=== PATIENT | female | born 2000 | race Caucasian/White ===

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

== ENCOUNTER 2020-01-13 22:45 | Emergency (ER) | payer OTHER, SELFPAY ==
[2020-01-13 22:52] VITALS: BP 137/84; PULSE 118; RESP 18; TEMP 37.6; O2SAT 98; BMI 33.3
--- NOTE | 2020-01-13 22:59 | XRR_ITS ---
PROCEDURE INFORMATION: Exam: XR Right Hand Exam date and time: 01/13/2020 11:16 PM Age: 19 years old Clinical indication: Injury or trauma; Fall; Initial encounter; Blunt trauma (contusions or hematomas; Hand; Right TECHNIQUE: Imaging protocol: XR Right hand. Views: 3 or more views. COMPARISON: No relevant prior studies available. FINDINGS: Bones/joints: Normal. Soft tissues: Normal. XR/XR hand RT min 3V* [id number] IMPRESSION: No acute findings.
[2020-01-13 23:00] VITALS: PULSE 111
--- NOTE | 2020-01-13 23:15 | W.ED.EXTPRO ---
HPI - Extremity Problem General: Chief complaint: Extremity Injury, Upper Stated complaint: hand pain Time Seen by Provider: 01/13/20 22:55 History of Present Illness: HPI Narrative: Patient fell on her hand yesterday and sustained a bruise to below the #4 finger in the metacarpal region and she says it hurts more today Complaint: extremity pain Location: right and upper extremity (Hand) Quality: aching Radiation: none Relieving factors: immobilization Exacerbating factors: range of motion Associated symptoms: Reports no associated symptoms; Deny chest pain, fever(s) or rash Review of Systems Const: Denies: fever, chills or body aches Eyes: Denies: change in vision or blurry vision ENMT: Denies: throat pain or nasal congestion Card: Denies: chest pain or shortness of breath on exertion Resp: Denies: shortness of breath, productive cough or non-productive cough GI: Denies: abdominal pain, nausea or vomiting Musc: Reports: extremity pain (Right hand) Skin/Breast: Denies: rash Neuro: Denies: headache Psych: Denies: anxiety or depression Chris/Lymph: Denies: easy bruising PFSH ED PFSH: Social History Smoking and tobacco status: current every day smoker Female Reproductive History: Date of last menstrual period: 01/13/20 Physical Exam Const: COMMON NORMALS: no apparent distress, average body habitus and oriented x3 HENMT: COMMON NORMALS: normocephalic HEAD & SCALP: normal to inspection and normocephalic FACE & SINUS: normal facial exam Eye: COMMON NORMALS: conjunctivae normal GENERAL EYE: normal appearance of both eyes CONJUNCTIVA: Yes conjunctivae normal Neck/C-Spine: COMMON NORMALS: no JVD Chest: COMMONS NORMALS: inspection of chest normal Resp: COMMON NORMALS: normal respiratory effort and clear to auscultation bilaterally AUSCULTATION: clear to auscultation bilaterally Cardio: COMMON NORMALS: no JVD, regular rate and regular rhythm RATE: regular rate RHYTHM: regular rhythm GI: COMMON NORMALS: normal to inspection, nondistended, normoactive bowel sounds Extremity: COMMON NORMALS: normal to inspection and full ROM RIGHT UPPER EXTREMITY: Yes hand & digits (Bruising to the fourth metacarpal and has good range of motion is tender to the distal aspect of it.) Neuro: COMMON NORMALS: oriented x3 Course Vital Signs: Vital signs: Vital Signs Temperature 99.6 F 01/13/20 22:52 Pulse Rate 111 H 01/13/20 23:00 Respiratory Rate 18 01/13/20 22:52 Blood Pressure 137/84 01/13/20 22:52 Pulse Oximetry 98 01/13/20 22:52 Discharge Plan Discharge Prescriptions: No Action No Known Home Medications RF: 0 Coding Level of Care Code ED Clinical Support Nurse for Clement Anthony
[2020-01-13 23:40] VITALS: BP 117/77; PULSE 95; RESP 18; O2SAT 96
== END 2020-01-13 23:43 | disposition home or self-care (01) ==
PROVIDERS: Emergency Provider Nurse Practitioner Family; Family Provider Family Medicine; PCP Registered Nurse
DX: S60.221A Contusion of right hand, initial encounter (principal); F17.200 Nicotine dependence, unspecified, uncomplicated; W19.XXXA Unspecified fall, initial encounter
CPT/HCPCS: 12345; 73130; 99281; 99282

== ENCOUNTER 2020-07-12 09:10 | Emergency (ER) | payer BC, SELFPAY ==
[2020-07-12 09:13] VITALS: BP 136/83; PULSE 107; RESP 16; TEMP 36.6; O2SAT 99; BMI 33.7
--- NOTE | 2020-07-12 09:29 | W.ED.ANIMALB ---
HPI - Animal Bite General: Chief Complaint: Animal Bite Stated Complaint: insect bite/dizzy Time Seen by Provider: 07/12/20 09:12 History of Present Illness: HPI narrative: Patient is a 19-year-old female comes to the ED with lesion on right inner thigh. Patient first noticed lesion on right inner thigh Wednesday. Patient is unsure if she had a bug bite or what caused lesion. Patient says redness and tenderness has increased over the past couple days. Patient also says that her last period was May 12. She has a regular monthly cycle. She states that she could possibly be , but has taken a couple at home tests in the last couple weeks and they were both negative. Associated symptoms: Deny chills, fever(s) or headache(s) Review of Systems Const: Denies: fever(s), chills or fatigue Eyes: Denies: change in vision or eye discomfort ENMT: Denies: throat pain, odynophagia, nasal discharge or nasal congestion Card: Denies: chest pain, palpitations, edema, swelling of feet/ankles, dyspnea on exertion or orthopnea Resp: Denies: dyspnea, productive cough or non-productive cough GI: Denies: abdominal pain, nausea, vomiting, diarrhea, constipation or hematochezia : Reports: amenorrhea (Last period Was May 12); Denies: flank pain, dysuria or hematuria Musc: Denies: neck pain, back pain or extremity swelling Skin/Breast: Reports: new lesions; Denies: rash Neuro: Reports: dizziness (intermittent mild dizziness for the past 2 days.); Denies: headache(s), numbness in extremities or weakness in extremities [facility] ED PFSH: Social History Smoking and tobacco status: former smoker Alcohol intake: never Substance/Drug Use: never Female Reproductive History: Date of last menstrual period: 05/12/20 Physical Exam Const: COMMON NORMALS: no acute distress, patient oriented x3, healthy appearing and alert GENERAL APPEARANCE: cooperative and comfortable HENMT: COMMON NORMALS: normocephalic HEAD & SCALP: normocephalic MOUTH: Normal oral and palatal mucosa present THROAT: posterior oropharynx normal and uvula midline Eye: COMMON NORMALS: Equal, round and reactive pupils present PUPIL: Yes Equal, round and reactive pupils present Neck/C-Spine: COMMON NORMALS: supple GENERAL: Yes normal visual inspection Resp: COMMON NORMALS: normal respiratory effort, No retractions, No use of accessory muscles and clear to auscultation bilaterally AUSCULTATION: clear to auscultation bilaterally Cardio: COMMON NORMALS: regular rate, regular rhythm, S1 normal heart sound present, S2 normal heart sound present, No gallops present (Cardio), No clicks present (Cardio), No murmurs present (Cardio) and Peripheral pulses 2+ throughout RATE: regular rate RHYTHM: regular rhythm HEART SOUNDS: S1 normal heart sound present and S2 normal heart sound present PERIPHERAL PULSES: Peripheral pulses 2+ throughout GI: COMMON NORMALS: Normal to inspection, nondistended, normoactive bowel sounds present, Soft to palpation, non-tender and no masses PALPATION: Yes Soft to palpation : COMMON NORMALS: Yes no CVA tenderness BLADDER/KIDNEY EXAM: Yes no CVA tenderness Back/Pelvis: COMMON NORMALS: no CVA tenderness Extremity: NARRATIVE EXTREMITY EXAM: Patient has lesion on upper medial aspect of right thigh with erythema, warmth tenderness. No visible drainage and lesion is nonfluctuant and indurated. Exam findings suggestive of cellulitis. GENERAL: Yes normal exam except as noted Neuro: COMMON NORMALS: patient oriented x3 and moves all extremities SENSORIUM/ORIENTATION: Yes alert Skin: NARRATIVE SKIN EXAM: Patient has lesion on upper medial aspect of right thigh with erythema, warmth tenderness. No visible drainage and lesion is nonfluctuant and indurated. Exam findings suggestive of cellulitis. GENERAL SKIN EXAM: dry skin Course Vital Signs: Vital signs: Vital Signs Temperature 97.9 F 07/12/20 09:13 Pulse Rate 85 07/12/20 11:06 Respiratory Rate 16 07/12/20 11:06 Blood Pressure 109/71 07/12/20 11:06 Pulse Oximetry 100 07/12/20 11:06 MDM - Animal Bite MDM Narrative: Medical decision making narrative: Patient is a 19-year-old female comes to the ED with lesion on right thigh. Patient also says her last period was May 12 and she is taken multiple at home tests that were negative in the past couple weeks. Physical exam shows a healthy 19-year-old female in no acute distress or pain. Lesion on right thigh shows erythema, warmth and tenderness to palpation. No visible ulcer or puncture wounds seen. No visible drainage. Exam findings suggestive of cellulitis. White blood cell count 6.1 and rest of CBC was unremarkable. hCG was negative. Patient was discharged and put on a prescription of cephalexin. She was told to return to ED for reevaluation and possible abscess drainage if cellulitis on the right thigh does not improve after being on antibiotics for a few days. Follow-up with PCP in 7 to 10 days for reevaluation. Patient understood and agreed with plan. Lab Data: Attestation: I reviewed the patient's lab results. Labs: Lab Results 07/12/20 07/12/20 Range/Units 10:42 10:42 WBC 6.1 (4.5-13.0) 10^3/ uL RBC 4.06 L (4.1-5.3) 10^6/u L Hgb 12.6 (11.5-15.3) g/dL Hct 37.4 (37.0-47.0) % MCV 92.1 (81-99) fL MCH 31.0 (28.0-34.0) pg MCHC 33.7 (30.0-36.0) g/dL RDW 11.9 L (12.1-15.1) % Plt Count 235 (130-400) 10^3/c mm MPV 9.5 (7.4-10.4) fL Neut % (Auto) 62.0 % Lymph % (Auto) 27.0 % [place] % (Auto) 8.8 % Eos % (Auto) 1.5 % Baso % (Auto) 0.5 % Neut # (Auto) 3.80 (1.8-8.0) 10^3/u L Lymph # (Auto) 1.7 (1.5-6.5) 10^3/u L [place] # (Auto) 0.5 (0.2-0.9) 10^3/u L Eos # (Auto) 0.1 (0.0-0.8) 10^3/u L Baso # (Auto) 0.0 (0.0-0.1) 10^3/u L Nucleated RBC % (a uto) 0 % Nucleated RBCs # 0.0 /100WBC HCG, Qual Negative (Negative) Discharge Plan Discharge Patient Disposition: Home Clinical Impression: Cellulitis Qualifiers: Site of cellulitis: extremity Site of cellulitis of extremity: lower extremity Laterality: right Qualified Code(s): L03.115 - Cellulitis of right lower limb Condition: Stable Prescriptions: New cephalexin 500 mg capsule 500 mg PO TID 7 Days Qty: 21 RF: 0 No Action No Known Home Medications RF: 0 Discharge Orders: Discharge Order (Routine); Ordered 07/12/20 Ordered By: Raghu Mejia Referrals: Brigitte Forrest FNP [Primary Care Provider] - Discharge Diet: Regular Discharge Activity: Resume usual activity Patient Instructions: Cellulitis (ED) Activity Restrictions/Additional Instructions: Follow-up with PCP in 7 to 10 days. Take medications as prescribed. Return to the ER or your medical provider if condition worsens after 2-3 days on antibiotics. Please read and understand discharge instructions. If any questions, please ask. Discharge Date/Time: 07/12/20 11:13 Coding Level of Care Code ED Mud Mixer Helper for Clement Anthony Exam Comprehensive
[2020-07-12 10:48] LABS: Basophils % 0.5 %; Eosinophils # 0.1 10^3/uL (0.0-0.8); Eosinophils % 1.5 %; Hematocrit 37.4 % (37.0-47.0); Hemoglobin 12.6 g/dL (11.5-15.3); Lymphocytes # 1.7 10^3/uL (1.5-6.5); Mean Corpuscular HGB Conc 33.7 g/dL (30.0-36.0); Mean Corpuscular Volume 92.1 fL (81-99); Mean Platelet Volume 9.5 fL (7.4-10.4); Monocytes # 0.5 10^3/uL (0.2-0.9); Monocytes % 8.8 %; Nucleated Red Blood Cells % 0 %; Platelet Count 235 10^3/cmm (130-400); Red Blood Count 4.06 10^6/uL (4.1-5.3); Red Cell Distribution Width 11.9 % (12.1-15.1); White Blood Count 6.1 10^3/uL (4.5-13.0)
[2020-07-12 11:05] LABS: HCG, Serum Qual Negative (Negative)
[2020-07-12 11:06] VITALS: BP 109/71; PULSE 85; RESP 16; O2SAT 100
== END 2020-07-12 11:13 | disposition home or self-care (01) ==
PROVIDERS: Emergency Provider Physician Assistant; PCP Registered Nurse
DX: L03.115 Cellulitis of right lower limb (principal); Z87.891 Personal history of nicotine dependence
CPT/HCPCS: 12345; 84703; 85025; 99281; 99282

== ENCOUNTER 2020-08-23 12:23 | Emergency (ER) | payer BC, SELFPAY ==
--- NOTE | 2020-08-23 12:28 | XRR_ITS ---
PROCEDURE INFORMATION: Exam: XR Chest, 1 View Exam date and time: 08/23/2020 12:44 PM Age: 19 years old Clinical indication: Cough; Additional info: Cough, congestion TECHNIQUE: Imaging protocol: XR of the chest Views: 1 view. COMPARISON: No relevant prior studies available. FINDINGS: Lungs: Unremarkable. No consolidation. Pleural space: Unremarkable. No pleural effusion. No pneumothorax. Heart/Mediastinum: Unremarkable. No cardiomegaly. Bones/joints: Unremarkable. XR/XR chest 1V portable [id number] IMPRESSION: No acute findings.
[2020-08-23 12:42] VITALS: BP 114/69; PULSE 101; RESP 18; TEMP 36.8; O2SAT 98; BMI 33.5
--- NOTE | 2020-08-23 13:25 | ED_ITS ---
HPI - COVID General: Chief Complaint: COVID symptoms Stated Complaint: cough/congestion Time Seen by Provider: 08/23/20 13:25 Triage information: Has fever, cough or shortness of breath . Exposure to COVID + person last 14 days History of Present Illness: HPI Narrative: Patient is a 19-year-old female comes to the ED with upper respiratory symptoms. She says she has had a sore throat, dry cough, nasal congestion and drainage for over 4 days. 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 She also says she has some itching in her ear. She says she feels short of breath sometimes as well. Denies any fever, nausea/vomiting. COVID 19 common symptoms: positive non-productive cough, dyspnea, throat pain and nasal congestion; negative fever(s), chills, productive cough, fatigue, headache(s), nausea, vomiting or diarrhea COVID 19 other sytmptoms: negative chest pain COVID Results: SARS-CoV-2 RNA (RT-PCR) Pending 08/23/20 13:30 08/23/20 Review of Systems Const: Denies: fever(s), chills or fatigue Eyes: Denies: change in vision or eye discomfort ENMT: Reports: throat pain, nasal discharge and nasal congestion; Denies: odynophagia Card: Denies: chest pain, palpitations, edema, swelling of feet/ankles, dyspnea on exertion or orthopnea Resp: Reports: dyspnea and non-productive cough; Denies: productive cough GI: Denies: abdominal pain, nausea, vomiting, diarrhea, constipation or hematochezia : Denies: flank pain, dysuria or hematuria Musc: Denies: neck pain, back pain or extremity swelling Skin/Breast: Denies: rash or new lesions Neuro: Denies: headache(s), numbness in extremities or weakness in extremities PFS ED PFSH: Social History Smoking and tobacco status: former smoker Alcohol intake: never Female Reproductive History: Date of last menstrual period: 08/23/20 Physical Exam Const: COMMON NORMALS: no acute distress, patient oriented x3, healthy appearing and alert GENERAL APPEARANCE: cooperative and comfortable HENMT: COMMON NORMALS: normocephalic HEAD & SCALP: normocephalic MOUTH: Normal oral and palatal mucosa present THROAT: posterior oropharynx normal and uvula midline Neck/C-Spine: COMMON NORMALS: supple GENERAL: Yes normal visual inspection Resp: COMMON NORMALS: normal respiratory effort, No retractions, No use of accessory muscles and clear to auscultation bilaterally EFFORT & INSPECTION: Yes able to speak in complete sentences, No tachypneic, No respiratory distress and No Actively coughing AUSCULTATION: clear to auscultation bilaterally Cardio: COMMON NORMALS: regular rate, regular rhythm, S1 normal heart sound present, S2 normal heart sound present, No gallops present (Cardio), No clicks present (Cardio), No murmurs present (Cardio) and Peripheral pulses 2+ throughout RATE: regular rate RHYTHM: regular rhythm HEART SOUNDS: S1 normal heart sound present and S2 normal heart sound present PERIPHERAL PULSES: Peripheral pulses 2+ throughout GI: COMMON NORMALS: Normal to inspection, nondistended, normoactive bowel sounds present, Soft to palpation, non-tender and no masses PALPATION: Yes Soft to palpation : COMMON NORMALS: Yes no CVA tenderness BLADDER/KIDNEY EXAM: Yes no CVA tenderness Back/Pelvis: COMMON NORMALS: no CVA tenderness Extremity: COMMON NORMALS: normal to inspection Neuro: COMMON NORMALS: patient oriented x3 and moves all extremities SENSORIUM/ORIENTATION: Yes alert Skin: GENERAL SKIN EXAM: dry skin Course ED course: Patient is a 19-year-old female comes to the ED with upper respiratory symptoms. 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 Exam shows a healthy female in no acute distress. Lungs were clear to auscultation with no wheezing or crackles heard. Chest x-ray showed no acute findings. Patient was tested for COVID-19 and results are pending. She was discharged and given a prescription for albuterol inhaler to get filled if needed for any shortness of breath or wheezing. Patient was informed on self quarantine until COVID-19 results. Return to ED precautions given. Patient understood and agreed with plan. Vital Signs: Vital signs: Vital Signs Temperature 98.3 F 08/23/20 12:42 Pulse Rate 101 H 08/23/20 12:42 Respiratory Rate 18 08/23/20 12:42 Blood Pressure 114/69 08/23/20 12:42 Pulse Oximetry 97 08/23/20 13:41 MDM - COVID Lab Data COVID Results: SARS-CoV-2 RNA (RT-PCR) Pending 08/23/20 13:30 08/23/20 Imaging Data CXR: Attestation: I personally reviewed and interpreted this imaging study as follows: Radiologist's impression: [address] [place] [address] XRay Report Signed Patient: Mary Lee Unit #: [id number] : 2000 Age/Sex: 19 / F ADM Date: 08/23/20 Loc: ER Room/Bed: Attending Dr: Ordering Provider/Ordering MD: Lian Sosa DO Date of Service: 08/23/20 Procedure(s): XR chest 1V portable [id number] Accession Number(s): [id number] Report Number: [id number] PROCEDURE INFORMATION: Exam: XR Chest, 1 View Exam date and time: 08/23/2020 12:44 PM Age: 19 years old Clinical indication: Cough; Additional info: Cough, congestion TECHNIQUE: Imaging protocol: XR of the chest Views: 1 view. COMPARISON: No relevant prior studies available. FINDINGS: Lungs: Unremarkable. No consolidation. Pleural space: Unremarkable. No pleural effusion. No pneumothorax. Heart/Mediastinum: Unremarkable. No cardiomegaly. Bones/joints: Unremarkable. XR/XR chest 1V portable [id number] IMPRESSION: No acute findings. Dictated By: Honorio Mackey Signed By: Honorio Mackey Signed Date/Time: 08/23/201313 DD/ 1312 Discharge Plan Discharge Patient Disposition: Home Clinical Impression: Upper respiratory infection Qualifiers: URI type: unspecified URI Qualified Code(s): J06.9 - Acute upper respiratory infection, unspecified Condition: Stable Prescriptions: New albuterol sulfate 90 mcg/actuation aerosol powdr breath activated 2 inh INHALATION Q6H PRN (Reason: shortness of breath or wheezing) Qty: 1 RF: 0 No Action No Known Home Medications RF: 0 Discharge Orders: Discharge Order (Routine); Ordered 08/23/20 Ordered By: Raghu Mejia Referrals: Brigitte Forrest FNP [Primary Care Provider] - Discharge Diet: Regular Discharge Activity: Limit activity as instructed Patient Instructions: Upper Respiratory Infection - Adult Activity Restrictions/Additional Instructions: Follow-up with medical provider as directed in 7-10 days. COVID testing was performed and sent to lab and results will be back in 2 to 3 days. Self quarantine for the next 3 days or up to 12 days pending on COVID testing results. Contact [facility] in 2 to 3 days to get results or [facility] will contact you with results. Take ibuprofen or Tylenol for fevers. Drink plenty of fluids and stay hydrated. Symptom management with [id number] cough and nasal decongestant meds. Return to the ER or your medical provider if condition worsens. Please read and understand discharge instructions. If any questions, please ask. Discharge Date/Time: 08/23/20 13:42 Coding Level of Care Code ED Senior Mechanical Technician for Clement Anthony Exam Comprehensive
[2020-08-23 13:41] VITALS: O2SAT 97
[2020-08-24 18:53] LABS: Quest SARS-CoV-2 RNA NOT DETECTED (NOT DETECTED)
--- NOTE | 2020-08-25 08:20 | PC.NURSE ---
Pt called and notified of negative COVID result.
== END 2020-08-23 13:42 | disposition home or self-care (01) ==
PROVIDERS: Emergency Provider Physician Assistant; PCP Registered Nurse
DX: J06.9 Acute upper respiratory infection, unspecified (principal); Z87.891 Personal history of nicotine dependence
CPT/HCPCS: 12345; 71045; 87635; 99281; 99283

== ENCOUNTER 2020-10-28 23:05 | Emergency (ER) | payer BC, SELFPAY ==
[2020-10-28 23:14] VITALS: BP 130/85; PULSE 97; RESP 16; TEMP 36.9; O2SAT 98; BMI 33.3
[2020-10-29 02:16] VITALS: BP 128/89; PULSE 94; RESP 16; O2SAT 99
--- NOTE | 2020-10-29 02:29 | W.ED.DIZZY ---
HPI - Dizziness General: Chief Complaint: Dizziness Stated Complaint: ab pain, dizziness Time Seen by Provider: 10/29/20 02:01 History of Present Illness: HPI Narrative: Patient is a 19-year-old female comes to the ED with dizziness. Patient says she was working today and noticed that she had some episodes of dizziness and feeling off balance. Patient did say she could possibly be and her last menstrual. Was on September 16. She does have some increased urinary frequency with some mild left lower pelvis pain. Endorses having a white vaginal discharge. she has been drinking and eating normally and says she drink plenty of water today. Denies any excessive caffeine intake and says she only drinks 1 Mountain Dew a day. Endorses not getting much sleep for the past 3 nights before the dizziness started. Denies any chest pain, shortness of breath, fever, chills, nausea/vomiting, abdominal pain, bowel symptoms, dysuria or hematuria. Associated symptoms: Denies chest pain, chills, headache(s), nausea, nasal congestion, palpitations or vomiting Associated neuro symptoms: Deny numbness in extremities Review of Systems Const: Denies: fever(s), chills or fatigue Eyes: Denies: change in vision or eye discomfort ENMT: Denies: throat pain, odynophagia, nasal discharge or nasal congestion Card: Denies: chest pain, palpitations, edema, swelling of feet/ankles, dyspnea on exertion or orthopnea Resp: Denies: dyspnea, productive cough or non-productive cough GI: Denies: abdominal pain, nausea, vomiting, diarrhea, constipation or hematochezia : Reports: urinary frequency and pelvic pain (Mild left lower pelvic pain.); Denies: flank pain, dysuria or hematuria Musc: Denies: neck pain, back pain or extremity swelling Skin/Breast: Denies: rash or new lesions Neuro: Reports: dizziness; Denies: headache(s), numbness in extremities or weakness in extremities PFSH ED PFSH: Social History Smoking and tobacco status: former smoker Alcohol intake: never Female Reproductive History: Date of last menstrual period: 09/16/20 Physical Exam Const: COMMON NORMALS: no acute distress, patient oriented x3, healthy appearing and alert GENERAL APPEARANCE: cooperative and comfortable HENMT: COMMON NORMALS: normocephalic HEAD & SCALP: normocephalic MOUTH: Normal oral and palatal mucosa present THROAT: posterior oropharynx normal and uvula midline Eye: COMMON NORMALS: Equal, round and reactive pupils present PUPIL: Yes Equal, round and reactive pupils present Neck/C-Spine: COMMON NORMALS: supple GENERAL: Yes normal visual inspection Resp: COMMON NORMALS: normal respiratory effort, No retractions, No use of accessory muscles and clear to auscultation bilaterally AUSCULTATION: clear to auscultation bilaterally Cardio: COMMON NORMALS: regular rate, regular rhythm, S1 normal heart sound present, S2 normal heart sound present, No gallops present (Cardio), No clicks present (Cardio), No murmurs present (Cardio) and Peripheral pulses 2+ throughout RATE: regular rate RHYTHM: regular rhythm HEART SOUNDS: S1 normal heart sound present and S2 normal heart sound present PERIPHERAL PULSES: Peripheral pulses 2+ throughout GI: COMMON NORMALS: Normal to inspection, nondistended, normoactive bowel sounds present, Soft to palpation, non-tender and no masses PALPATION: Yes Soft to palpation : COMMON NORMALS: Yes no CVA tenderness BLADDER/KIDNEY EXAM: Yes no CVA tenderness Back/Pelvis: COMMON NORMALS: no CVA tenderness Extremity: COMMON NORMALS: normal to inspection Neuro: COMMON NORMALS: patient oriented x3 and moves all extremities SENSORIUM/ORIENTATION: Yes alert Skin: GENERAL SKIN EXAM: dry skin Course Vital Signs: Vital signs: Vital Signs Temperature 98.4 F 10/28/20 23:14 Pulse Rate 94 10/29/20 02:16 Respiratory Rate 16 10/29/20 02:16 Blood Pressure 128/89 10/29/20 02:16 Pulse Oximetry 99 10/29/20 02:16 MDM - Dizziness MDM Narrative: Medical decision making narrative: Patient is a 19-year-old female comes to the ED with dizziness, vaginal discharge, urine frequency and some left pelvic pain. Patient says she has not had much sleep for the past 3 nights. Exam is unremarkable and shows a healthy 19-year-old female in no acute distress or pain. CBC and CMP were unremarkable. EKG showed sinus tachycardia, 102 bpm, no ST segment elevation or depression seen. Trichomonas present and UA. hCG negative. Patient was discharged with a prescription for meclizine and Flagyl. Return to ED precautions given. Follow-up with PCP in 7 to 10 days. Patient understood and agreed with plan. Lab Data: Attestation: I reviewed the patient's lab results. Labs: Lab Results 10/29/20 10/29/20 10/29/20 Range/Units 02:12 02:12 02:12 WBC 8.0 (4.5-13.0) 10^3/ uL RBC 4.29 (4.1-5.3) 10^6/u L Hgb 13.4 (11.5-15.3) g/dL Hct 40.6 (37.0-47.0) % MCV 94.6 (81-99) fL MCH 31.2 (28.0-34.0) pg MCHC 33.0 (30.0-36.0) g/dL RDW 12.1 (12.1-15.1) % Plt Count 252 (130-400) 10^3/c mm MPV 9.7 (7.4-10.4) fL Neut % (Auto) 72.0 % Lymph % (Auto) 20.5 % [place] % (Auto) 6.1 % Eos % (Auto) 1.0 % Baso % (Auto) 0.2 % Neut # (Auto) 5.76 (1.8-8.0) 10^3/u L Lymph # (Auto) 1.6 (1.5-6.5) 10^3/u L [place] # (Auto) 0.5 (0.2-0.9) 10^3/u L Eos # (Auto) 0.1 (0.0-0.8) 10^3/u L Baso # (Auto) 0.0 (0.0-0.1) 10^3/u L Nucleated RBC % (a uto) 0 % Nucleated RBCs # 0.0 /100WBC Sodium 135 L (136-145) mmol/L Potassium 3.9 (3.5-5.1) mmol/L Chloride 103 (98-107) mmol/L Carbon Dioxide 25 (22-29) mmol/L Anion Gap 10.9 (5-19) BUN 11 (6-20) mg/dL Creatinine 0.5 (0.5-0.9) mg/dL GFR Calculation 158.9 H (90-130) mL/min Glucose 94 (65-115) mg/dL Calculated Osmolal ity 279 L (285-295) mOsm/k g Calcium 9.0 (8.5-10.5) mg/dL Total Bilirubin 0.2 (0.15-1.2) mg/dL AST 12 (0-32) U/L ALT 12 (0-33) U/L Alkaline Phosphata se 79 (35-105) IU/L Total Protein 7.1 (6.6-8.7) g/dL Albumin 4.3 (3.5-5.2) g/dL Globulin 2.8 (1.3-4.6) g/dL Lipase 44 (13-60) U/L HCG, Qual Negative (Negative) Urine Color (Yellow) Urine Appearance (CLEAR) Urine pH (5-7) Ur Specific Gravit y (1.005-1.030) Urine Protein (Negative) Urine Glucose (UA) (Normal) Urine Ketones (Negative) Urine Blood (Negative) Urine Nitrate (Negative) Urine Bilirubin (Negative) Urine Urobilinogen (Negative) mg/dL Ur Leukocyte Verna ase (Negative) Urine RBC (0-2) /hpf Urine WBC (0-5) /hpf Ur Squamous Epith Cells (0-5) /hpf Amorphous Sediment /hpf Urine Bacteria (NONE) /hpf Urine Mucus /hpf Urine Trichomonas /hpf 10/29/20 Range/Units 02:12 WBC (4.5-13.0) 10^3/ uL RBC (4.1-5.3) 10^6/u L Hgb (11.5-15.3) g/dL Hct (37.0-47.0) % MCV (81-99) fL MCH (28.0-34.0) pg MCHC (30.0-36.0) g/dL RDW (12.1-15.1) % Plt Count (130-400) 10^3/c mm MPV (7.4-10.4) fL Neut % (Auto) % Lymph % (Auto) % [place] % (Auto) % Eos % (Auto) % Baso % (Auto) % Neut # (Auto) (1.8-8.0) 10^3/u L Lymph # (Auto) (1.5-6.5) 10^3/u L [place] # (Auto) (0.2-0.9) 10^3/u L Eos # (Auto) (0.0-0.8) 10^3/u L Baso # (Auto) (0.0-0.1) 10^3/u L Nucleated RBC % (a uto) % Nucleated RBCs # /100WBC Sodium (136-145) mmol/L Potassium (3.5-5.1) mmol/L Chloride (98-107) mmol/L Carbon Dioxide (22-29) mmol/L Anion Gap (5-19) BUN (6-20) mg/dL Creatinine (0.5-0.9) mg/dL GFR Calculation (90-130) mL/min Glucose (65-115) mg/dL Calculated Osmolal ity (285-295) mOsm/k g Calcium (8.5-10.5) mg/dL Total Bilirubin (0.15-1.2) mg/dL AST (0-32) U/L ALT (0-33) U/L Alkaline Phosphata se (35-105) IU/L Total Protein (6.6-8.7) g/dL Albumin (3.5-5.2) g/dL Globulin (1.3-4.6) g/dL Lipase (13-60) U/L HCG, Qual (Negative) Urine Color Yellow (Yellow) Urine Appearance Cloudy A (CLEAR) Urine pH 7.0 (5-7) Ur Specific Gravit y 1.015 (1.005-1.030) Urine Protein Neg (Negative) Urine Glucose (UA) Norm (Normal) Urine Ketones Negative (Negative) Urine Blood Neg (Negative) Urine Nitrate Negative (Negative) Urine Bilirubin Neg (Negative) Urine Urobilinogen Norm (Negative) mg/dL Ur Leukocyte Verna ase 1+ H (Negative) Urine RBC 0-4 H (0-2) /hpf Urine WBC 5-10 H (0-5) /hpf Ur Squamous Epith Cells 10-15 H (0-5) /hpf Amorphous Sediment Amorphous urates /hpf Urine Bacteria 1+ H (NONE) /hpf Urine Mucus 1+ /hpf Urine Trichomonas 1+ H /hpf EKG Data^: EKG 1: Attestation: I personally reviewed and interpreted this EKG as follows: EKG interpretation date: 10/29/20 Interpretation: Sinus tachycardia, 102 bpm, no ST segment elevation or depression seen. Discharge Plan Discharge Patient Disposition: Home Clinical Impression: Dizziness, Trichomonal urethritis Condition: Stable Prescriptions: New Flagyl 500 mg tablet 500 mg PO BID 7 Days Qty: 14 RF: 0 meclizine 25 mg tablet 25 mg PO DAILY PRN (Reason: dizziness) Qty: 20 RF: 0 No Action No Known Home Medications RF: 0 albuterol sulfate 90 mcg/actuation aerosol powdr breath activated 2 inh INHALATION Q6H PRN (Reason: shortness of breath or wheezing) Qty: 1 RF: 0 Discharge Orders: Discharge ED (Routine); Ordered 10/29/20 Ordered By: Raghu Mejia Referrals: Brigitte Forrest FNP [Primary Care Provider] - Discharge Diet: Regular Discharge Activity: Resume usual activity Patient Instructions: Trichomoniasis (ED), Dizziness (ED), Trichomoniasis - Female Activity Restrictions/Additional Instructions: Follow-up with medical provider as directed in 7 to 10 days. Take medications as prescribed. Return to the ER or your medical provider if condition worsens. Please read and understand discharge instructions. If any questions, please ask. Coding Level of Care Code ED Pocket And Pulley Machine Operator for Chg Fwd Exam Comprehensive
[2020-10-29 02:36] LABS: HCG, Serum Qual Negative (Negative)
[2020-10-29 02:39] LABS: Basophils % 0.2 %; Eosinophils # 0.1 10^3/uL (0.0-0.8); Hematocrit 40.6 % (37.0-47.0); Hemoglobin 13.4 g/dL (11.5-15.3); Lymphocytes # 1.6 10^3/uL (1.5-6.5); Lymphocytes % 20.5 %; Mean Corpuscular Hemoglobin 31.2 pg (28.0-34.0); Mean Corpuscular Volume 94.6 fL (81-99); Mean Platelet Volume 9.7 fL (7.4-10.4); Monocytes # 0.5 10^3/uL (0.2-0.9); Monocytes % 6.1 %; Neutrophils # 5.76 10^3/uL (1.8-8.0); Nucleated Red Blood Cells % 0 %; Platelet Count 252 10^3/cmm (130-400); Red Blood Count 4.29 10^6/uL (4.1-5.3); Red Cell Distribution Width 12.1 % (12.1-15.1)
[2020-10-29 02:44] LABS: Alanine Aminotransferase 12 U/L (0-33); Albumin Level 4.3 g/dL (3.5-5.2); Alkaline Phosphatase 79 IU/L (35-105); Anion Gap 10.9 (5-19); Aspartate Amino Transferase 12 U/L (0-32); Blood Urea Nitrogen 11 mg/dL (6-20); Carbon Dioxide 25 mmol/L (22-29); Chloride 103 mmol/L (98-107); Globulin 2.8 g/dL (1.3-4.6); Glomerular Filtration Rate 158.9 mL/min (90-130); Glucose 94 mg/dL (65-115); Lipase 44 U/L (13-60); Osmolality Calculated 279 mOsm/kg (285-295); Potassium 3.9 mmol/L (3.5-5.1); Sodium 135 mmol/L (136-145); Total Bilirubin 0.2 mg/dL (0.15-1.2); Total Protein 7.1 g/dL (6.6-8.7)
[2020-10-29 02:48] LABS: Add Urine Microscopic? YES; Bilirubin Urine Neg (Negative); Blood Urine Neg (Negative); Glucose Urine UA Norm (Normal); Ketones Urine Negative (Negative); Leukocyte Esterase Urine 1+ (Negative); Nitrate Urine Negative (Negative); Protein Urine Neg (Negative); RBC Urine 0-4 /hpf (0-2); Specific Gravity, Urine 1.015 (1.005-1.030); Urine Appearance Cloudy (CLEAR); Urine Color Yellow (Yellow); Urobilinogen Urine Norm (Negative)
[2020-10-29 02:49] LABS: Add Urine Culture? Yes; Amorphous Sediment Urine AMORPHOUS URATES /hpf; Bacteria Urine 1+ /hpf; Mucus Urine 1+ /hpf; Trichomonas Urine 1+ /hpf
[2020-10-29] MEDS: meclizine 25 mg tablet 50 MG PO (03:32)
[2020-10-29] MEDS: metroNIDAZOLE 500 MG Tablet PO (03:33)
[2020-10-29 03:36] VITALS: BP 128/82; PULSE 88; RESP 16; O2SAT 98
== END 2020-10-29 03:36 | disposition home or self-care (01) ==
PROVIDERS: Emergency Medicine; Emergency Provider Physician Assistant; PCP Registered Nurse
DX: R42 Dizziness and giddiness (principal); A59.03 Trichomonal cystitis and urethritis; Z87.891 Personal history of nicotine dependence
CPT/HCPCS: 12345; 80053; 81001; 83690; 84703; 85025; 87086; 99283; J8597

== ENCOUNTER 2020-11-02 18:23 | Emergency (ER) | payer BC, SELFPAY ==
[2020-11-02 18:23] VITALS: BP 171/112; PULSE 101; RESP 16; TEMP 37.2; O2SAT 100; BMI 33.5
--- NOTE | 2020-11-02 19:16 | W.ED.FEMALGU ---
HPI - Female Genitourinary General: Chief complaint: Urogenital-Female Stated complaint: unable to urinate Time Seen by Provider: 11/02/20 19:01 History of Present Illness: HPI Narrative: Patient is a 19-year-old female comes to the ED with anuria. Patient says that she urinated at 9:00 this morning and it was dark-colored. She then said that she has not urinated since. Patient said that she has had some cranberry juice and a little bit of water today but has not drink anything else. She denies any dysuria, bladder pain or blood in the urine. Denies fever, chills, abdominal pain, nausea/vomiting. Patient was seen on October 28 and was having some vaginal discharge and pelvic pain. She was diagnosed with trichomonas after it was positive on her UA and sent home on Flagyl. Patient says all her symptoms with vaginal discharge and pelvic pain have improved greatly since taking Flagyl. Associated symptoms: Deny abdominal pain, headache(s) or nausea Date of Last Menstrual Period: 09/30/20 Review of Systems Const: Denies: fever(s), chills or fatigue Eyes: Denies: change in vision or eye discomfort ENMT: Denies: throat pain, odynophagia, nasal discharge or nasal congestion Card: Denies: chest pain, palpitations, edema, swelling of feet/ankles, dyspnea on exertion or orthopnea Resp: Denies: dyspnea, productive cough or non-productive cough GI: Denies: abdominal pain, nausea, vomiting, diarrhea, constipation or hematochezia : Reports: urinary frequency (decrease urine frequency); Denies: flank pain, dysuria or hematuria Musc: Denies: neck pain, back pain or extremity swelling Skin/Breast: Denies: rash or new lesions Neuro: Denies: headache(s), numbness in extremities or weakness in extremities PFSH ED PFSH: Social History Smoking and tobacco status: former smoker Alcohol intake: never Female Reproductive History: Date of last menstrual period: 09/30/20 Physical Exam Const: COMMON NORMALS: no acute distress, patient oriented x3 and alert GENERAL APPEARANCE: cooperative and comfortable HENMT: COMMON NORMALS: normocephalic HEAD & SCALP: normocephalic MOUTH: Normal oral and palatal mucosa present and moist mucous membranes abnormal (mild dehydration signs) Details: parched THROAT: posterior oropharynx normal and uvula midline Neck/C-Spine: COMMON NORMALS: supple GENERAL: Yes normal visual inspection Resp: COMMON NORMALS: normal respiratory effort, No retractions, No use of accessory muscles and clear to auscultation bilaterally AUSCULTATION: clear to auscultation bilaterally Cardio: COMMON NORMALS: regular rate, regular rhythm, S1 normal heart sound present, S2 normal heart sound present, No gallops present (Cardio), No clicks present (Cardio), No murmurs present (Cardio) and Peripheral pulses 2+ throughout RATE: regular rate RHYTHM: regular rhythm HEART SOUNDS: S1 normal heart sound present and S2 normal heart sound present PERIPHERAL PULSES: Peripheral pulses 2+ throughout GI: COMMON NORMALS: Normal to inspection, nondistended, normoactive bowel sounds present, Soft to palpation, non-tender and no masses PALPATION: Yes Soft to palpation : COMMON NORMALS: Yes no CVA tenderness BLADDER/KIDNEY EXAM: Yes no CVA tenderness Back/Pelvis: COMMON NORMALS: no CVA tenderness Extremity: COMMON NORMALS: normal to inspection Neuro: COMMON NORMALS: patient oriented x3 and moves all extremities SENSORIUM/ORIENTATION: Yes alert Skin: GENERAL SKIN EXAM: dry skin Course ED course: Nurse did a bladder scan on patient. Bladder scan detected very minimal amount of volume in patient's bladder. She states she does not have the feeling that she has a full bladder needs to urinate. Reevaluation(s): Reevaluation #1: Patient was able to urinate and nurse was able to collect and sent to lab for analysis. Vital Signs: Vital signs: Vital Signs Temperature 98.9 F 11/02/20 18:23 Pulse Rate 74 11/02/20 22:04 Respiratory Rate 16 11/02/20 18:23 Blood Pressure 120/84 11/02/20 21:49 Pulse Oximetry 99 11/02/20 22:04 MDM - Female MDM Narrative: Medical decision making narrative: Patient is a 19-year-old female comes to the ED with complaints of anuria. patient says she urinated around 9:00 this morning and it was a darker color. Denies any UTI symptoms such as abdominal pain, pelvic pain, dysuria, increased urine frequency or blood in the urine. When asking patient about her history she said today she has had 1 cup of cranberry juice and just a little bit of water and no other fluids today. Exam showed healthy 19-year-old female in no acute distress or pain. She had no abdominal tenderness upon palpation. Patient's mucous membranes Dry upon exam. Patient was able to provide us a urine sample here in the ED and UA showed no signs of UTI.. A bladder scan was performed and showed minimal amount of urine volume in bladder. Patient was told that she is probably dehydrated and that is why she is not urinating much today. She was given a liter of IV fluids while here in the ED. She was told that she needs to drink more water throughout the day to stay hydrated. She was diagnosed with dehydration and discharged home. Follow-up with PCP in 7 to 10 days for reevaluation. Return to ED precautions given. Patient understood and agreed with plan. Lab Data: Attestation: I reviewed the patient's lab results. Labs: Lab Results 11/02/20 Range/Units 19:55 Urine Color Yellow (Yellow) Urine Appearance Clear (CLEAR) Urine pH 5 (5-7) Ur Specific Gravit y 1.025 (1.005-1.030) Urine Protein Neg (Negative) Urine Glucose (UA) Norm (Normal) Urine Ketones Negative (Negative) Urine Blood Neg (Negative) Urine Nitrate Negative (Negative) Urine Bilirubin Neg (Negative) Urine Urobilinogen 1 H (Negative) mg/dL Ur Leukocyte Verna ase Negative (Negative) Urine RBC 0-4 H (0-2) /hpf Urine WBC 0-4 H (0-5) /hpf Ur Squamous Epith Cells 55-80 H (0-5) /hpf Amorphous Sediment Not Reportable Urine Bacteria Trace (NONE) /hpf Urine Mucus Trace /hpf Discharge Plan Discharge Patient Disposition: Home Clinical Impression: Dehydration Condition: Stable Prescriptions: No Action No Known Home Medications RF: 0 albuterol sulfate 90 mcg/actuation aerosol powdr breath activated 2 inh INHALATION Q6H PRN (Reason: shortness of breath or wheezing) Qty: 1 RF: 0 Flagyl 500 mg tablet 500 mg PO BID 7 Days Qty: 14 RF: 0 meclizine 25 mg tablet 25 mg PO DAILY PRN (Reason: dizziness) Qty: 20 RF: 0 Discharge Orders: Discharge ED (Routine); Ordered 11/02/20 Ordered By: Raghu Mejia Referrals: Brigitte Forrest FNP [Primary Care Provider] - Discharge Diet: Regular Discharge Activity: Resume usual activity Patient Instructions: Dehydration (ED) Activity Restrictions/Additional Instructions: Follow-up with medical provider as directed. Make sure you are drinking plenty of water daily and staying hydrated. Continue taking all home and previously prescribed medications. Return to the ER or your medical provider if condition worsens. Please read and understand discharge instructions. If any questions, please ask. Coding Level of Care Code ED Network Control Operators Supervisor for Chg Fwd Exam Comprehensive
[2020-11-02 19:51] VITALS: PULSE 82; O2SAT 98
[2020-11-02 20:10] LABS: Bilirubin Urine Neg (Negative); Blood Urine Neg (Negative); Glucose Urine UA Norm (Normal); Ketones Urine Negative (Negative); Leukocyte Esterase Urine Negative (Negative); Nitrate Urine Negative (Negative); Protein Urine Neg (Negative); Specific Gravity, Urine 1.025 (1.005-1.030); Urine Appearance Clear (CLEAR); Urine Color Yellow (Yellow); Urobilinogen Urine 1 mg/dL (Negative); pH Urine 5 (5-7)
[2020-11-02 20:12] LABS: Add Urine Culture? No; Bacteria Urine TRACE /hpf; Mucus Urine TRACE /hpf; RBC Urine 0-4 /hpf (0-2); Squamous Epithelial Cell Urine 55-80 /hpf (0-5); WBC Urine 0-4 /hpf (0-5)
[2020-11-02] MEDS: sodium chloride 0.9% 1,000 ML 999 ML IV (20:38)
[2020-11-02 21:49] VITALS: BP 120/84; PULSE 75; O2SAT 99
[2020-11-02 22:04] VITALS: PULSE 74; O2SAT 99
== END 2020-11-02 22:08 | disposition home or self-care (01) ==
PROVIDERS: Emergency Provider Physician Assistant; PCP Registered Nurse
DX: E86.0 Dehydration (principal); Z87.891 Personal history of nicotine dependence
CPT/HCPCS: 12345; 81001; 96360; 99283; J7030

== ENCOUNTER 2021-01-28 06:41 | Outpatient (CLI) | payer OTHER, SELFPAY ==
--- NOTE | 2021-01-28 06:59 | US_ITS ---
WS: [id number] RIGHT UPPER QUADRANT ULTRASOUND HISTORY: NAUSEA AND Vomiting; intractability OF VOMITING NOT SPECIFIED COMPARISON: None available. Liver: 14.6 cm in length. Normal size liver. Simple cyst towards the diaphragm measures 4.5 x 5.4 x 5 .1 cm. No bile duct dilatation or mass. Gallbladder: Normally distended gallbladder with no stones or wall thickening. CBD: 0.4 cm Pancreas: Partially obscured by bowel gas. Right kidney: 10.8 cm in length. Normal size and echogenicity. No hydronephrosis or mass. Aorta and IVC: Unremarkable abdominal aorta and IVC. No ascites. US/US abdomen limited [id number] IMPRESSION: 1. Negative gallbladder. 2. Simple hepatic cyst measures 4.5 x 5.4 x 5.1 cm.
== END 2021-01-28 06:42 | disposition home or self-care (01) ==
PROVIDERS: PCP Registered Nurse; Visit Provider Registered Nurse
DX: R11.2 Nausea with vomiting, unspecified (principal); R10.11 Right upper quadrant pain; G89.29 Other chronic pain; K76.89 Other specified diseases of liver
CPT/HCPCS: 76705

== ENCOUNTER 2021-02-24 09:45 | Emergency (ER) | payer OTHER, SELFPAY ==
[2021-02-24 09:48] VITALS: BP 109/69; PULSE 95; RESP 17; TEMP 36.6; O2SAT 97; BMI 33.6
--- NOTE | 2021-02-24 10:14 | ED_ITS ---
HPI - Abdominal Pain General: Chief Complaint: Abdominal Pain Stated Complaint: Cyst Complications Time Seen by Provider: 02/24/21 09:54 History of Present Illness: HPI narrative: -year-old female comes in with episode of vomiting this morning. She states she was seenWas seen about a month ago and had a gallbladder ultrasound. She had a simple hepatic cysts which measured 4-1/2 x 5-1/2 x 5 cm is recommended to follow-up otherwise there is no significant abnormality. She not had any evaluation since. She is little bit late for her last. She is not taken a home test.Complaining of right upper quadrant abdominal pain today. She had 2-3 episodes of bilious vomit none since then denies any hematemesis. She denies flank pain denies dysuria urgency or frequency. MD elicited complaint: abdominal pain Onset (ago): minute(s) Pain Consistency: intermittent and now resolved Location: RUQ Severity: moderate Quality: cramping Radiation: none Exacerbating factors: eating Relieving factors: rest Associated Symptoms: Reports bloating, GI cramping, nausea, poor appetite and vomiting; Denies anorexia, belching, change in bowel habits, change in stool character, chills, coffee ground emesis, constipation, diarrhea, dyspepsia, dysuria, excessive flatus, fever(s), heartburn, hematochezia, hematuria, hematemesis, fec al incontinence, loose stools, melena and syncope Related Data: Date of Last Menstrual Period: 09/30/20 Review of Systems Const: Denies: fever(s) or chills ENMT: Denies: throat pain, ear or mastoid pain, nasal discharge or nasal congestion Card: Denies: syncope Resp: Denies: dyspnea, productive cough or non-productive cough GI: Reports: nausea, vomiting, bloating and GI cramping; Denies: hematemesis, coffee ground emesis, heartburn, diarrhea, constipation, belching, excessive flatus, fecal incontinence, change in bowel habits, change in stool character, hematochezia or melena : Denies: dysuria or hematuria Skin/Breast: Denies: rash or pruritus PFSH ED PFSH: Social History Smoking and tobacco status: former smoker Alcohol intake: never Female Reproductive History: Date of last menstrual period: 09/30/20 Physical Exam Const: COMMON NORMALS: no acute distress GENERAL APPEARANCE: cooperative and comfortable ORIENTATION/CONSCIOUSNESS: Yes awake, Yes oriented to person, Yes oriented to place and Yes oriented to time HENMT: COMMON NORMALS: normocephalic, atraumatic and hearing grossly normal bilaterally HEAD & SCALP: normocephalic and atraumatic Neck/C-Spine: COMMON NORMALS: no JVD Resp: COMMON NORMALS: normal respiratory effort, No retractions, No use of accessory muscles and clear to auscultation bilaterally AUSCULTATION: clear to auscultation bilaterally Cardio: COMMON NORMALS: no JVD, regular rate, regular rhythm and No murmurs present (Cardio) RATE: regular rate RHYTHM: regular rhythm GI: COMMON NORMALS: Soft to palpation and No hepatosplenomegaly present AUSCULTATION: Yes normoactive bowel sounds PALPATION: Yes Soft to palpation, No Tenderness to palpation present (GI), No Guarding due to palpation present (GI) and Yes No hepatosplenomegaly present Extremity: COMMON NORMALS: normal to inspection, capillary refill normal, no clubbing, cyanosis or edema, no calf tenderness and no pedal edema Neuro: SENSORIUM/ORIENTATION: Yes oriented to person, Yes oriented to place and Yes oriented to time Skin: COMMON NORMALS: no rashes or lesions noted GENERAL SKIN EXAM: no rashes or lesions noted Course Vital Signs: Vital signs: Vital Signs Temperature 97.9 F 02/24/21 09:48 Pulse Rate 95 02/24/21 09:48 Respiratory Rate 17 02/24/21 09:48 Blood Pressure 109/69 02/24/21 09:48 Pulse Oximetry 97 02/24/21 09:48 MDM - Abdominal Pain MDM Narrative: Medical decision making narrative: Labs reviewed. Labs are unremarkable with exception about the fact patient is . We will start her on promethazine use as needed have her get silk-[id number] vitamins offered to set her up with pleater hand she is going to wait and get that set up to her primary care doctor (nurse practitioner she sees in [place]). Return if has further problems. Lab Data: Labs: Lab Results 02/24/21 02/24/21 02/24/21 Range/Units 10:24 10:24 10:24 WBC 6.0 (4.5-13.0) 10^3/ uL RBC 4.03 L (4.1-5.3) 10^6/u L Hgb 12.6 (11.5-15.3) g/dL Hct 37.4 (37.0-47.0) % MCV 92.8 (81-99) fL MCH 31.3 (28.0-34.0) pg MCHC 33.7 (30.0-36.0) g/dL RDW 12.2 (12.1-15.1) % Plt Count 247 (130-400) 10^3/c mm MPV 9.2 (7.4-10.4) fL Neut % (Auto) 69.9 % Lymph % (Auto) 20.1 % [place] % (Auto) 8.5 % Eos % (Auto) 0.5 % Baso % (Auto) 0.5 % Neut # (Auto) 4.22 (1.8-8.0) 10^3/u L Lymph # (Auto) 1.2 L (1.5-6.5) 10^3/u L [place] # (Auto) 0.5 (0.2-0.9) 10^3/u L Eos # (Auto) 0.0 (0.0-0.8) 10^3/u L Baso # (Auto) 0.0 (0.0-0.1) 10^3/u L Nucleated RBC % (a uto) 0 % Nucleated RBCs # 0.0 /100WBC Sodium 136 (136-145) mmol/L Potassium 3.8 (3.5-5.1) mmol/L Chloride 102 (98-107) mmol/L Carbon Dioxide 22 (22-29) mmol/L Anion Gap 15.8 (5-19) BUN 7 (6-20) mg/dL Creatinine 0.4 L (0.5-0.9) mg/dL GFR Calculation 203.5 H (90-130) mL/min Glucose 78 (65-115) mg/dL Calculated Osmolal ity 279 L (285-295) mOsm/k g Calcium 8.5 (8.5-10.5) mg/dL Total Bilirubin 0.4 (0.15-1.2) mg/dL AST 16 (0-32) U/L ALT 16 (0-33) U/L Alkaline Phosphata se 54 (35-105) IU/L Total Protein 7.1 (6.6-8.7) g/dL Albumin 4.4 (3.5-5.2) g/dL Globulin 2.7 (1.3-4.6) g/dL Lipase 24 (13-60) U/L HCG, Qual Positive H (Negative) Urine Color (Yellow) Urine Appearance (CLEAR) Urine pH (5-7) Ur Specific Gravit y (1.005-1.030) Urine Protein (Negative) Urine Glucose (UA) (Normal) Urine Ketones (Negative) Urine Blood (Negative) Urine Nitrate (Negative) Urine Bilirubin (Negative) Urine Urobilinogen (Negative) mg/dL Ur Leukocyte Verna ase (Negative) Urine RBC (0-2) /hpf Urine WBC (0-5) /hpf Ur Squamous Epith Cells (0-5) /hpf Amorphous Sediment Urine Bacteria (NONE) /hpf 02/24/21 Range/Units 10:24 WBC (4.5-13.0) 10^3/ uL RBC (4.1-5.3) 10^6/u L Hgb (11.5-15.3) g/dL Hct (37.0-47.0) % MCV (81-99) fL MCH (28.0-34.0) pg MCHC (30.0-36.0) g/dL RDW (12.1-15.1) % Plt Count (130-400) 10^3/c mm MPV (7.4-10.4) fL Neut % (Auto) % Lymph % (Auto) % [place] % (Auto) % Eos % (Auto) % Baso % (Auto) % Neut # (Auto) (1.8-8.0) 10^3/u L Lymph # (Auto) (1.5-6.5) 10^3/u L [place] # (Auto) (0.2-0.9) 10^3/u L Eos # (Auto) (0.0-0.8) 10^3/u L Baso # (Auto) (0.0-0.1) 10^3/u L Nucleated RBC % (a uto) % Nucleated RBCs # /100WBC Sodium (136-145) mmol/L Potassium (3.5-5.1) mmol/L Chloride (98-107) mmol/L Carbon Dioxide (22-29) mmol/L Anion Gap (5-19) BUN (6-20) mg/dL Creatinine (0.5-0.9) mg/dL GFR Calculation (90-130) mL/min Glucose (65-115) mg/dL Calculated Osmolal ity (285-295) mOsm/k g Calcium (8.5-10.5) mg/dL Total Bilirubin (0.15-1.2) mg/dL AST (0-32) U/L ALT (0-33) U/L Alkaline Phosphata se (35-105) IU/L Total Protein (6.6-8.7) g/dL Albumin (3.5-5.2) g/dL Globulin (1.3-4.6) g/dL Lipase (13-60) U/L HCG, Qual (Negative) Urine Color Yellow (Yellow) Urine Appearance Sl hazy (CLEAR) Urine pH 6.5 (5-7) Ur Specific Gravit y 1.020 (1.005-1.030) Urine Protein Neg (Negative) Urine Glucose (UA) Norm (Normal) Urine Ketones 1+ H (Negative) Urine Blood Neg (Negative) Urine Nitrate Negative (Negative) Urine Bilirubin 1+ H (Negative) Urine Urobilinogen Norm (Negative) mg/dL Ur Leukocyte Verna ase Negative (Negative) Urine RBC 0-4 H (0-2) /hpf Urine WBC 0-4 H (0-5) /hpf Ur Squamous Epith Cells 15-25 H (0-5) /hpf Amorphous Sediment Not Reportable Urine Bacteria 1+ H (NONE) /hpf Discharge Plan Discharge Patient Disposition: Home Clinical Impression: , Nausea & vomiting Condition: Stable Prescriptions: New promethazine 25 mg tablet 25 mg PO Q6H PRN (Reason: nausea and vomiting) Qty: 20 RF: 0 No Action citalopram 20 mg tablet 20 mg PO DAILY RF: 0 Discharge Orders: Discharge ED (Routine); Ordered 02/24/21 Ordered By: Emiliano Chauhan Referrals: Brigitte Forrest FNP [Primary Care Provider] - Discharge Diet: Usual diet Discharge Activity: Resume usual activity Patient Instructions: Opioid Safety Activity Restrictions/Additional Instructions: Recommend establishing with pleater hand as soon as you are able. Coding Level of Care Code ED [place] [employer] Machine Operator for Chg Fwd Exam Comprehensive
[2021-02-24] MEDS: ondansetron 2 mg/ML SDV 2 mL 4 MG IVP (10:27)
[2021-02-24] MEDS: sodium chloride 0.9% 1,000 ML 999 ML IV (10:27)
[2021-02-24 10:34] LABS: Basophils % 0.5 %; Eosinophils % 0.5 %; Hematocrit 37.4 % (37.0-47.0); Hemoglobin 12.6 g/dL (11.5-15.3); Lymphocytes # 1.2 10^3/uL (1.5-6.5); Lymphocytes % 20.1 %; Mean Corpuscular HGB Conc 33.7 g/dL (30.0-36.0); Mean Corpuscular Hemoglobin 31.3 pg (28.0-34.0); Mean Corpuscular Volume 92.8 fL (81-99); Mean Platelet Volume 9.2 fL (7.4-10.4); Monocytes # 0.5 10^3/uL (0.2-0.9); Monocytes % 8.5 %; Neutrophils # 4.22 10^3/uL (1.8-8.0); Neutrophils % 69.9 %; Nucleated Red Blood Cells % 0 %; Platelet Count 247 10^3/cmm (130-400); Red Blood Count 4.03 10^6/uL (4.1-5.3); Red Cell Distribution Width 12.2 % (12.1-15.1)
[2021-02-24 10:57] LABS: HCG, Serum Qual Positive (Negative)
[2021-02-24 10:58] LABS: Add Urine Microscopic? YES; Bilirubin Urine 1+ (Negative); Blood Urine Neg (Negative); Glucose Urine UA Norm (Normal); Ketones Urine 1+ (Negative); Leukocyte Esterase Urine Negative (Negative); Nitrate Urine Negative (Negative); Protein Urine Neg (Negative); Urine Appearance SL Hazy (CLEAR); Urine Color Yellow (Yellow); Urobilinogen Urine Norm (Negative); pH Urine 6.5 (5-7)
[2021-02-24 10:59] LABS: Add Urine Culture? No; Bacteria Urine 1+ /hpf; RBC Urine 0-4 /hpf (0-2); Squamous Epithelial Cell Urine 15-25 /hpf (0-5); WBC Urine 0-4 /hpf (0-5)
[2021-02-24 11:01] LABS: Alanine Aminotransferase 16 U/L (0-33); Albumin Level 4.4 g/dL (3.5-5.2); Alkaline Phosphatase 54 IU/L (35-105); Anion Gap 15.8 (5-19); Aspartate Amino Transferase 16 U/L (0-32); Blood Urea Nitrogen 7 mg/dL (6-20); Calcium 8.5 mg/dL (8.5-10.5); Carbon Dioxide 22 mmol/L (22-29); Chloride 102 mmol/L (98-107); Globulin 2.7 g/dL (1.3-4.6); Glomerular Filtration Rate 203.5 mL/min (90-130); Glucose 78 mg/dL (65-115); Lipase 24 U/L (13-60); Osmolality Calculated 279 mOsm/kg (285-295); Potassium 3.8 mmol/L (3.5-5.1); Sodium 136 mmol/L (136-145); Total Bilirubin 0.4 mg/dL (0.15-1.2); Total Protein 7.1 g/dL (6.6-8.7)
== END 2021-02-24 11:27 | disposition home or self-care (01) ==
PROVIDERS: Emergency Provider Family Medicine; PCP Registered Nurse
DX: O26.899 Other specified pregnancy related conditions, unspecified trimester (principal); R11.2 Nausea with vomiting, unspecified; Z87.891 Personal history of nicotine dependence; Z3A.00 Weeks of gestation of pregnancy not specified
CPT/HCPCS: 80053; 81001; 83690; 84703; 85025; 96361; 96374; 99283; J2405; J7030

== ENCOUNTER 2021-02-27 09:40 | Emergency (ER) | payer OTHER, SELFPAY ==
[2021-02-27 09:45] VITALS: BP 123/66; PULSE 86; RESP 87; TEMP 36.6; O2SAT 99; BMI 34.0
--- NOTE | 2021-02-27 09:58 | ED_ITS ---
HPI - General Adult General: Chief complaint: General Medical Stated complaint: 8 WKS PREG, CRAMPING, cant hold anything down Time Seen by Provider: 02/27/21 09:51 History of Present Illness: HPI narrative: 20-year-old female who is a 1 para 0 with vomiting to many times to count over the past couple of days. She was seen here on the 26 with similar complaints prescribed Phenergan she said there was a delay in getting it filled and is only taken 2 tablets since then. She has not taken any tablets today despite that she has vomited several times. She has some mild mid abdominal cramping more around her waist she denies any diarrhea. She denies any bleeding or spotting she is never been before so does not really know what to look for. Denies any lower pain describes it more as a crampy type around her umbilicus area. She came in because she did not know what else to do. She is unable to see OB until she gets her appointment time Review of Systems Narrative: General: denies fatigue, fever or chills HEENT: denies ear pain, denies nasal congestion, denies vision changes, denies sore throat Neck: denies masses or pain Resp: denies cough, denies shortness of breath, denies pleuritic pain Cardio: denies chest pain, denies edema GI: She has several episodes of vomiting her stools are little bit more frequent but denies diarrhea she denies any right lower quadrant pain : denies hematuria, denies dysuria denies vaginal bleeding Neuro: denies headache, denies dizziness, denies motor or sensory changes Musculoskeletal: denies pain, denies swelling Skin: denies rashes Psych: denies SI or HI Endocrine: denies thyroid symptoms, denies lymphadenopathy all over ROS reviewed and patient denies PFSH ED PFSH: Social History Smoking and tobacco status: former smoker Alcohol intake: never Female Reproductive History: Date of last menstrual period: 09/30/20 Physical Exam Narrative: EXAM NARRATIVE: General: a/o/3, no distress Head: atraumatic HEENT: normal eyes, normal conjunctiva, normal hearing, normal external nose, normal mouth, mucous membranes moist Neck: FROM, trachea midline Chest: normal expansion, no gross deformities Resp: normal speech, no retractions, no accessory muscle use, CTA bilaterally Cardio: regular rate and rhythm and no murmur, no peripheral edema, normal peripheral pulses GI: soft, flat non tender, no guarding normal BS patient has no reproducible pain on exam she has no right lower quadrant pain : deferred Musculoskeletal: FROM, no pain or gross deformities Neuro: a/o appropriate for age, no gross motor or sensory deficitys, CN II-XII grossly intact, normal coordination, normal speech Skin: no rashes Psych: cooperative, normal mood and effect Course Vital Signs: Vital signs: Vital Signs Temperature 97.9 F 02/27/21 09:45 Pulse Rate 86 02/27/21 09:45 Respiratory Rate 87 H 02/27/21 09:45 Blood Pressure 123/66 02/27/21 09:45 Pulse Oximetry 99 02/27/21 09:45 MDM - General Adult MDM Narrative: Medical decision making narrative: We will recheck some labs give her some fluids and some Zofran here in the emergency department I Myrtle go ahead and check a beta quant on her since she does not know how far along she is and since this is her second visit on [place] go ahead and check a transvaginal ultrasound to determine IUP make sure there is not any other signs or symptoms of a cause of her vomiting and/or pain as she has never been before and does not really know what to look for with pregnancies I feel we just need to make sure there is no ectopic since she is describing some abdominal cramping and/or pain Ultrasound shows 6 weeks 3 days with the active heart rate and an intrauterine . She has had no vomiting here in the emergency department was given a liter of fluid. Discussed with her that she could use suppositories and patient sugar had no so we will recommend the [id number] generic forms of diplegia's and she can combine that with her oral Phenergan I recommend that she actively take her medications Differential Diagnosis: Differential Diagnosis: Hyperemesis gravidarum vomiting in tubal IUP Medical Records: Attestation: I reviewed the patient's medical records. Lab Data: Attestation: I reviewed the patient's lab results. Labs: Lab Results 02/27/21 02/27/21 Range/Units 10:07 10:07 WBC 5.1 (4.5-13.0) 10^3/ uL RBC 3.96 L (4.1-5.3) 10^6/u L Hgb 12.3 (11.5-15.3) g/dL Hct 37.2 (37.0-47.0) % MCV 93.9 (81-99) fL MCH 31.1 (28.0-34.0) pg MCHC 33.1 (30.0-36.0) g/dL RDW 12.2 (12.1-15.1) % Plt Count 260 (130-400) 10^3/c mm MPV 9.5 (7.4-10.4) fL Neut % (Auto) 71.1 % Lymph % (Auto) 19.1 % [place] % (Auto) 8.0 % Eos % (Auto) 1.0 % Baso % (Auto) 0.4 % Neut # (Auto) 3.66 (1.8-8.0) 10^3/u L Lymph # (Auto) 1.0 L (1.5-6.5) 10^3/u L Bryan # (Auto) 0.4 (0.2-0.9) 10^3/u L Eos # (Auto) 0.1 (0.0-0.8) 10^3/u L Baso # (Auto) 0.0 (0.0-0.1) 10^3/u L Nucleated RBC % (a uto) 0 % Nucleated RBCs # 0.0 /100WBC Sodium 133 L (136-145) mmol/L Potassium 3.8 (3.5-5.1) mmol/L Chloride 99 (98-107) mmol/L Carbon Dioxide 25 (22-29) mmol/L Anion Gap 12.8 (5-19) BUN 6 (6-20) mg/dL Creatinine 0.4 L (0.5-0.9) mg/dL GFR Calculation 203.5 H (90-130) mL/min Glucose 83 (65-115) mg/dL Calculated Osmolal ity 273 L (285-295) mOsm/k g Calcium 8.5 (8.5-10.5) mg/dL Ser , Mike i-Qnt 20268.00 mIU/mL Discharge Plan Discharge Patient Disposition: Home Clinical Impression: Qualifiers: Weeks of gestation: less than 8 weeks Qualified Code(s): Z3A.01 - Less than 8 weeks gestation of Nausea & vomiting Qualifiers: Vomiting type: unspecified Vomiting Intractability: non-intractable Qualified Code(s): R11.2 - Nausea with vomiting, unspecified Condition: Stable Prescriptions: No Action citalopram 20 mg tablet 20 mg PO DAILY RF: 0 promethazine 25 mg tablet 25 mg PO Q6H PRN (Reason: nausea and vomiting) Qty: 20 RF: 0 Discharge Orders: Discharge ED (Routine); Ordered 02/27/21 Ordered By: Sheryl Urias Referrals: Brigitte Forrest FNP [Primary Care Provider] - Discharge Diet: Advance as tolerated Discharge Activity: Resume usual activity Patient Instructions: Hyperemesis Gravidarum (ED) Activity Restrictions/Additional Instructions: You may want to try a vitamin that does not have the iron but please make sure it has folic acid. You may also try geo pieces that may help with nausea and vomiting sometimes Benadryl helps as well You can also get faht-jni-edpfyxl vitamin B6 intake 10 mg 3 times a day if this does not work you can increase it to a maximum of 25 mg 3 times a day also you can get [id number] Unisom or the generic which is 25 mg at bedtime and see if this will help with your vomiting. I recommend you take your prescription that you have at home or regularly for the vomiting Recommend you follow-up with OB return if you have worsening of symptoms bleeding pain Thank you for choosing [facility] for your healthcare needs today. Please realize this is an emergency room and that we are providing you with a medical screening exam and this may not be complete and all inclusive of all the testing and or work up that you may need to determine your ailment or severity of your illness. It is very important that you follow up as instructed or that you return to the Emergency Department should you have concerns or if your condition changes or worsens in any way. Coding Level of Care Code ED Programmer Business for Clement Anthony
--- NOTE | 2021-02-27 10:02 | US_ITS ---
WS: [id number] EARLY OBSTETRICAL ULTRASOUND (<14 WEEKS). HISTORY: abd pain, vomiting COMPARISON: None available. Single intrauterine gestational sac is identified. Cardiac activity at 126 BPM. [place]-rump length lalitha sures 0.7 cm which corresponds to a gestation of 6w3d. Normal-appearing yolk sac and amnion demonstra rupesh. No subchorionic hemorrhage. No free fluid. Normal size ovaries with no mass. Normal vascularity to each ovary. US/US OB <=14 wk fetus w transvag IMPRESSION: 1. Single intrauterine gestation of 6 weeks 3 days with an EDC of 10/20/2021. 2. No significant subchorionic hemorrhage. Cervix is closed.
[2021-02-27] MEDS: ondansetron 2 mg/ML SDV 2 mL 4 MG IVP (10:15)
[2021-02-27 10:43] LABS: Basophils % 0.4 %; Eosinophils # 0.1 10^3/uL (0.0-0.8); Hematocrit 37.2 % (37.0-47.0); Hemoglobin 12.3 g/dL (11.5-15.3); Lymphocytes % 19.1 %; Mean Corpuscular HGB Conc 33.1 g/dL (30.0-36.0); Mean Corpuscular Hemoglobin 31.1 pg (28.0-34.0); Mean Corpuscular Volume 93.9 fL (81-99); Mean Platelet Volume 9.5 fL (7.4-10.4); Monocytes # 0.4 10^3/uL (0.2-0.9); Neutrophils # 3.66 10^3/uL (1.8-8.0); Neutrophils % 71.1 %; Nucleated Red Blood Cells % 0 %; Platelet Count 260 10^3/cmm (130-400); Red Blood Count 3.96 10^6/uL (4.1-5.3); Red Cell Distribution Width 12.2 % (12.1-15.1); White Blood Count 5.1 10^3/uL (4.5-13.0)
[2021-02-27 10:46] LABS: Anion Gap 12.8 (5-19); Blood Urea Nitrogen 6 mg/dL (6-20); Calcium 8.5 mg/dL (8.5-10.5); Carbon Dioxide 25 mmol/L (22-29); Chloride 99 mmol/L (98-107); Glomerular Filtration Rate 203.5 mL/min (90-130); Glucose 83 mg/dL (65-115); Osmolality Calculated 273 mOsm/kg (285-295); Potassium 3.8 mmol/L (3.5-5.1); Sodium 133 mmol/L (136-145)
[2021-02-27] MEDS: sodium chloride 0.9% 1,000 ML 999 ML IV (11:09)
[2021-02-27 12:15] VITALS: BP 142/82; PULSE 79; RESP 18; O2SAT 99
== END 2021-02-27 12:15 | disposition home or self-care (01) ==
PROVIDERS: Emergency Provider Emergency Medicine; PCP Registered Nurse
DX: O21.9 Vomiting of pregnancy, unspecified (principal); Z3A.08 8 weeks gestation of pregnancy; Z87.891 Personal history of nicotine dependence
CPT/HCPCS: 76801; 76817; 80048; 84702; 85025; 96361; 96374; 99283; J2405; J7030

== ENCOUNTER 2021-02-28 11:27 | Emergency (ER) | payer OTHER, SELFPAY ==
[2021-02-28 12:09] VITALS: BP 121/86; PULSE 84; RESP 16; TEMP 36.5; O2SAT 99; BMI 34.0
--- NOTE | 2021-02-28 12:47 | ED_ITS ---
HPI - General: Chief complaint: Vaginal Bleeding Stated complaint: vaginal bleeding, 8 wks preg Time Seen by Provider: 02/28/21 12:31 History of Present Illness: HPI Narrative: Patient is a 8-week 20-year-old female that comes to the ED with vaginal bleeding. Patient was seen here in the ED yesterday February 27 for abdominal cramping and ultrasound showed a single intrauterine gestation estimated at 6 weeks and 3 days. Cervix was closed and no subchorionic hemorrhaging noted. Today patient says she woke up and she went to the bathroom and then wiped afterwards and had red blood on the toilet paper. Patient also noted having red blood in toilet after going to the bathroom. She says her abdominal cramping has improved greatly from yesterday and is almost resolved. She reports having some morning nausea for the past week and she takes promethazine at home to help with her symptoms. Denies any other symptoms, such as fever, chills, abdominal pain, bladder or bowel symptoms. Date of Last Menstrual Period: 01/13/21 Associated symptoms: Reports nausea; Deny abdominal pain, dysuria, headache(s) or vomiting Review of Systems Const: Denies: fever(s), chills or fatigue Eyes: Denies: change in vision or eye discomfort ENMT: Denies: throat pain, odynophagia, nasal discharge or nasal congestion Card: Denies: chest pain, palpitations, edema, swelling of feet/ankles, dyspnea on exertion or orthopnea Resp: Denies: dyspnea, productive cough or non-productive cough GI: Reports: nausea; Denies: abdominal pain, vomiting, diarrhea, constipation or hematochezia : Reports: vaginal bleeding; Denies: flank pain, dysuria or hematuria Musc: Denies: neck pain, back pain or extremity swelling Skin/Breast: Denies: rash or new lesions Neuro: Denies: headache(s), numbness in extremities or weakness in extremities PFSH ED PFSH: Social History Smoking and tobacco status: former smoker Alcohol intake: never Female Reproductive History: Date of last menstrual period: 01/13/21 Physical Exam Const: COMMON NORMALS: no acute distress, patient oriented x3, healthy appearing and alert GENERAL APPEARANCE: cooperative and comfortable HENMT: COMMON NORMALS: normocephalic HEAD & SCALP: normocephalic MOUTH: Normal oral and palatal mucosa present THROAT: posterior oropharynx normal and uvula midline Neck/C-Spine: COMMON NORMALS: supple GENERAL: Yes normal visual inspection Resp: COMMON NORMALS: normal respiratory effort, No retractions, No use of accessory muscles and clear to auscultation bilaterally AUSCULTATION: clear to auscultation bilaterally Cardio: COMMON NORMALS: regular rate, regular rhythm, S1 normal heart sound present, S2 normal heart sound present, No gallops present (Cardio), No clicks present (Cardio), No murmurs present (Cardio) and Peripheral pulses 2+ throughout RATE: regular rate RHYTHM: regular rhythm HEART SOUNDS: S1 normal heart sound present and S2 normal heart sound present PERIPHERAL PULSES: Peripheral pulses 2+ throughout GI: COMMON NORMALS: Normal to inspection, nondistended, normoactive bowel sounds present, Soft to palpation, non-tender and no masses PALPATION: Yes Soft to palpation : COMMON NORMALS: Yes no CVA tenderness BLADDER/KIDNEY EXAM: Yes no CVA tenderness Back/Pelvis: COMMON NORMALS: no CVA tenderness Extremity: COMMON NORMALS: normal to inspection Neuro: COMMON NORMALS: patient oriented x3 and moves all extremities SENSORIUM/ORIENTATION: Yes alert Skin: GENERAL SKIN EXAM: dry skin Course Vital Signs: Vital signs: Vital Signs Temperature 97.7 F 02/28/21 12:09 Pulse Rate 87 02/28/21 15:11 Respiratory Rate 16 02/28/21 15:11 Blood Pressure 114/70 02/28/21 15:11 Pulse Oximetry 99 02/28/21 15:11 MDM - OB/Uterine Contractions MDM Narrative: Medical decision making narrative: Patient is a 8-week female is 20 years old comes into the ED with vaginal bleeding. Patient was seen here in the ED yesterday February 27 for abdominal cramping. Patient appears nontoxic and has no acute distress or pain. Exam is benign. CBC, CMP and UA were unremarkable. hCG quant 30,679, which is a over 4000 increased from yesterday. Ultrasound showed a single intrauterine approximately 6 weeks and 4 days gestation. A small subchorionic hemorrhage is noted as well. Cervix is closed. Patient diagnosed with a subchorionic hemorrhage in first trimester. She was told to rest and limit activity and contact her OB doctor for further instructions and to set up her first appointment. Return to ED precautions given. Patient understood and agree with plan. Lab Data: Attestation: I reviewed the patient's lab results. Labs: Lab Results 02/28/21 02/28/21 02/28/21 Range/Units 13:10 13:10 13:10 WBC 7.9 (4.5-13.0) 10^3/ uL RBC 4.01 L (4.1-5.3) 10^6/u L Hgb 12.7 (11.5-15.3) g/dL Hct 38.8 (37.0-47.0) % MCV 96.8 (81-99) fL MCH 31.7 (28.0-34.0) pg MCHC 32.7 (30.0-36.0) g/dL RDW 12.0 L (12.1-15.1) % Plt Count 266 (130-400) 10^3/c mm MPV 9.3 (7.4-10.4) fL Neut % (Auto) 71.1 % Lymph % (Auto) 19.5 % [place] % (Auto) 8.0 % Eos % (Auto) 0.5 % Baso % (Auto) 0.5 % Neut # (Auto) 5.58 (1.8-8.0) 10^3/u L Lymph # (Auto) 1.5 (1.5-6.5) 10^3/u L [place] # (Auto) 0.6 (0.2-0.9) 10^3/u L Eos # (Auto) 0.0 (0.0-0.8) 10^3/u L Baso # (Auto) 0.0 (0.0-0.1) 10^3/u L Nucleated RBC % (a uto) 0 % Nucleated RBCs # 0.0 /100WBC Sodium 135 L (136-145) mmol/L Potassium 3.9 (3.5-5.1) mmol/L Chloride 103 (98-107) mmol/L Carbon Dioxide 23 (22-29) mmol/L Anion Gap 12.9 (5-19) BUN 6 (6-20) mg/dL Creatinine 0.4 L (0.5-0.9) mg/dL GFR Calculation 203.5 H (90-130) mL/min Glucose 80 (65-115) mg/dL Calculated Osmolal ity 277 L (285-295) mOsm/k g Calcium 8.6 (8.5-10.5) mg/dL Total Bilirubin 0.3 (0.15-1.2) mg/dL AST 10 (0-32) U/L ALT 11 (0-33) U/L Alkaline Phosphata se 57 (35-105) IU/L Total Protein 6.8 (6.6-8.7) g/dL Albumin 4.3 (3.5-5.2) g/dL Globulin 2.5 (1.3-4.6) g/dL Ser , [place] 37858.00 mIU/mL Urine Color Yellow (Yellow) Urine Appearance Sl hazy (CLEAR) Urine pH 8 H (5-7) Ur Specific Gravit y 1.015 (1.005-1.030) Urine Protein Neg (Negative) Urine Glucose (UA) Norm (Normal) Urine Ketones Negative (Negative) Urine Blood Neg (Negative) Urine Nitrate Negative (Negative) Urine Bilirubin Neg (Negative) Prot Sulfosalicyli c Acd Negative (Negative) Urine Urobilinogen Norm (Negative) mg/dL Ur Leukocyte Verna ase Negative (Negative) Urine RBC 0-4 H (0-2) /hpf Urine WBC 0-4 H (0-5) /hpf Ur Squamous Epith Cells 5-10 H (0-5) /hpf Amorphous Sediment Not Reportable Urine Bacteria 1+ H (NONE) /hpf Imaging Data^: US OB: Attestation: I personally reviewed and interpreted this imaging study as follows: Radiologist's impression: [address] [address] Ultrasound Report Signed Patient: Mary Lee Unit #: [id number] : 2000 Age/Sex: 20 / F ADM Date: 02/28/21 Loc: ER Room/Bed: Attending Dr: Ordering Provider/Ordering MD: Raghu Mejia Date of Service: 02/28/21 Procedure(s): US OB <=14 wk fetus w transvag Accession Number(s): [id number] Report Number: [id number] WS: [id number] TRANSABDOMINAL PELVIC AND TRANSVAGINAL PELVIC ULTRASOUND HISTORY: with new onset of vaginal bleeding COMPARISON: 02/27/2021 Again noted is an intrauterine gestation with a crown-rump length of 0.7 cm. Gestational age of 6 weeks and 4 days. There is a small adjacent subchorionic hemorrhage measuring 1.2 x 1.4 x 0.6 cm which is unchanged. There is small amount of free fluid in the cul-de-sac. The cervix is closed. Both ovaries are identified and normal vascularity. US/US OB <=14 wk fetus w transvag IMPRESSION: 1. Single intrauterine gestation 6 weeks 4 days. 2. Small unchanged subchorionic hemorrhage. 3. Small amount of free fluid. Free fluid is new since the prior study may be due to ruptured ovarian cyst. Dictated By: Kerri Ramirez DO Signed By: Kerri Ramirez DO Signed Date/Time: 02/28/21 1440 DD/ 1437 Discharge Plan Discharge Patient Disposition: Home Clinical Impression: Subchorionic hemorrhage in first trimester Qualifiers: Fetus number: single or unspecified fetus Qualified Code(s): O41.8X10 - Other specified disorders of amniotic fluid and membranes, first trimester, not applicable or unspecified Condition: Stable Prescriptions: No Action citalopram 20 mg tablet 20 mg PO DAILY RF: 0 promethazine 25 mg tablet 25 mg PO Q6H PRN (Reason: nausea and vomiting) Qty: 20 RF: 0 Discharge Orders: Discharge ED (Routine); Ordered 02/28/21 Ordered By: Raghu Mejia Referrals: Brigitte Forrest FNP [Primary Care Provider] - Discharge Diet: Regular Discharge Activity: Limit activity as instructed Patient Instructions: (ED) Activity Restrictions/Additional Instructions: Follow-up with OB provider within the next 7 to 10 days for reevaluation. Give OB provider call today to discuss activity level recommendations at this time. Limit activity, rest and no vaginal intercourse until evaluated by OB doctor as well. Take medications Tylenol as needed for pain.. Return to the ER or your medical provider if condition worsens. Please read and understand discharge instructions. Thank you for choosing [facility] for your healthcare needs today. Please realize this is an emergency room and that we are providing you with a medical screening exam and this may not be complete and all inclusive of all the testing and or work up that you may need to determine your ailment or severity of your illness. It is very important that you follow up as instructed or that you return to the Emergency Department should you have concerns or if your condition changes or worsens in any way. Coding Level of Care Code ED [employer] for Clement Fwd Exam Comprehensive
[2021-02-28] MEDS: promethazine 25 mg Tablet PO (12:59)
--- NOTE | 2021-02-28 13:04 | US_ITS ---
WS: [id number] TRANSABDOMINAL PELVIC AND TRANSVAGINAL PELVIC ULTRASOUND HISTORY: with new onset of vaginal bleeding COMPARISON: 02/27/2021 Again noted is an intrauterine gestation with a crown-rump length of 0.7 cm. Gestational age of 6 wee ks and 4 days. There is a small adjacent subchorionic hemorrhage measuring 1.2 x 1.4 x 0.6 cm which i s unchanged. There is small amount of free fluid in the cul-de-sac. The cervix is closed. Both ovaries are identified and normal vascularity. US/US OB <=14 wk fetus w transvag IMPRESSION: 1. Single intrauterine gestation 6 weeks 4 days. 2. Small unchanged subchorionic hemorrhage. 3. Small amount of free fluid. Free fluid is new since the prior study may be due to ruptured ovarian cyst.
[2021-02-28 13:09] VITALS: BP 134/74; PULSE 89; RESP 16; O2SAT 99
[2021-02-28 13:20] LABS: Basophils % 0.5 %; Eosinophils % 0.5 %; Hematocrit 38.8 % (37.0-47.0); Hemoglobin 12.7 g/dL (11.5-15.3); Lymphocytes # 1.5 10^3/uL (1.5-6.5); Lymphocytes % 19.5 %; Mean Corpuscular HGB Conc 32.7 g/dL (30.0-36.0); Mean Corpuscular Hemoglobin 31.7 pg (28.0-34.0); Mean Corpuscular Volume 96.8 fL (81-99); Mean Platelet Volume 9.3 fL (7.4-10.4); Monocytes # 0.6 10^3/uL (0.2-0.9); Neutrophils # 5.58 10^3/uL (1.8-8.0); Neutrophils % 71.1 %; Nucleated Red Blood Cells % 0 %; Platelet Count 266 10^3/cmm (130-400); Red Blood Count 4.01 10^6/uL (4.1-5.3); White Blood Count 7.9 10^3/uL (4.5-13.0)
[2021-02-28 13:24] LABS: Bilirubin Urine Neg (Negative); Blood Urine Neg (Negative); Glucose Urine UA Norm (Normal); Ketones Urine Negative (Negative); Leukocyte Esterase Urine Negative (Negative); Nitrate Urine Negative (Negative); Protein Urine Neg (Negative); RBC Urine 0-4 /hpf (0-2); Specific Gravity, Urine 1.015 (1.005-1.030); Sulfosalicylic Acid Urine Negative (Negative); Urine Appearance SL Hazy (CLEAR); Urine Color Yellow (Yellow); Urobilinogen Urine Norm (Negative); pH Urine 8 (5-7)
[2021-02-28 13:25] LABS: Bacteria Urine 1+ /hpf
[2021-02-28 13:28] LABS: WBC Urine 0-4 /hpf (0-5)
[2021-02-28 13:30] LABS: Add Urine Culture? No
[2021-02-28 13:48] LABS: Alanine Aminotransferase 11 U/L (0-33); Albumin Level 4.3 g/dL (3.5-5.2); Alkaline Phosphatase 57 IU/L (35-105); Anion Gap 12.9 (5-19); Aspartate Amino Transferase 10 U/L (0-32); Blood Urea Nitrogen 6 mg/dL (6-20); Calcium 8.6 mg/dL (8.5-10.5); Carbon Dioxide 23 mmol/L (22-29); Chloride 103 mmol/L (98-107); Globulin 2.5 g/dL (1.3-4.6); Glomerular Filtration Rate 203.5 mL/min (90-130); Glucose 80 mg/dL (65-115); Osmolality Calculated 277 mOsm/kg (285-295); Potassium 3.9 mmol/L (3.5-5.1); Sodium 135 mmol/L (136-145); Total Bilirubin 0.3 mg/dL (0.15-1.2); Total Protein 6.8 g/dL (6.6-8.7)
[2021-02-28 15:11] VITALS: BP 114/70; PULSE 87; RESP 16; O2SAT 99
== END 2021-02-28 15:12 | disposition home or self-care (01) ==
PROVIDERS: Emergency Provider Physician Assistant; PCP Registered Nurse
DX: O41.8X10 Other specified disorders of amniotic fluid and membranes, first trimester, not applicable or unspecified (principal); Z87.891 Personal history of nicotine dependence
CPT/HCPCS: 76801; 76817; 80053; 81001; 84702; 85025; 99283; Q0169

== ENCOUNTER 2021-03-12 17:14 | Emergency (ER) | payer OTHER, SELFPAY ==
[2021-03-12 17:18] VITALS: BP 115/80; PULSE 105; RESP 18; TEMP 36.8; O2SAT 97; BMI 33.5
[2021-03-12 19:35] LABS: Basophils % 0.2 %; Eosinophils % 0.4 %; Hematocrit 38.6 % (37.0-47.0); Hemoglobin 12.8 g/dL (11.5-15.3); Lymphocytes # 1.4 10^3/uL (1.5-6.5); Mean Corpuscular HGB Conc 33.2 g/dL (30.0-36.0); Mean Corpuscular Hemoglobin 31.1 pg (28.0-34.0); Mean Corpuscular Volume 93.9 fL (81-99); Mean Platelet Volume 9.3 fL (7.4-10.4); Monocytes # 0.6 10^3/uL (0.2-0.9); Neutrophils # 6.21 10^3/uL (1.8-8.0); Nucleated Red Blood Cells % 0 %; Platelet Count 253 10^3/cmm (130-400); Red Blood Count 4.11 10^6/uL (4.1-5.3); White Blood Count 8.3 10^3/uL (4.5-13.0)
[2021-03-12 20:12] LABS: Alanine Aminotransferase 17 U/L (0-33); Albumin Level 4.2 g/dL (3.5-5.2); Alkaline Phosphatase 53 IU/L (35-105); Anion Gap 13.6 (5-19); Aspartate Amino Transferase 15 U/L (0-32); Blood Urea Nitrogen 6 mg/dL (6-20); Calcium 8.6 mg/dL (8.5-10.5); Carbon Dioxide 24 mmol/L (22-29); Chloride 102 mmol/L (98-107); Globulin 2.9 g/dL (1.3-4.6); Glomerular Filtration Rate 203.5 mL/min (90-130); Glucose 78 mg/dL (65-115); Lipase 32 U/L (13-60); Osmolality Calculated 278 mOsm/kg (285-295); Potassium 3.6 mmol/L (3.5-5.1); Sodium 136 mmol/L (136-145); Total Bilirubin 0.2 mg/dL (0.15-1.2); Total Protein 7.1 g/dL (6.6-8.7)
[2021-03-12 22:53] VITALS: BP 104/72; PULSE 79; RESP 18; O2SAT 104
--- NOTE | 2021-03-12 23:06 | ED_ITS ---
HPI - Nausea/Vomiting/Diarrhea General: Chief complaint: Nausea/Vomiting/Diarrhea Stated complaint: 8 WKS PREG, N/V Time Seen by Provider: 03/12/21 22:43 Source: patient and family (mother) Mode of arrival: ambulatory Limitations: no limitations History of Present Illness: HPI Narrative: Patient is a 20-year-old female who presents to ED today along with her mother for complaints of nausea and vomiting in . Patient has been seen here 3 previous times for similar symptoms including the initial visit where she first learned she was . Patient tells me she has had nausea and vomiting daily over the past 2 weeks. She was seen recently by Bhavana Tamayo NP at [facility] who recommended Pepcid/B6. Patient states she has been taking this without relief. She does not complain of abdominal pain or cramping. No vaginal bleeding or discharge. MD elicited complaint: nausea and vomiting Pertinent past history: other ( ) Onset (ago): week(s) Associated nausea: Yes Associated abdominal pain: No Location of pain: None Exacerbating factors: eating Relieving factors: none Associated symtoms: Reports no associated symptoms and nausea; Denies chest pain, dysuria, fatigue, headache(s) or malaise Treatment prior to arrival: other OTC medicine Review of Systems Const: Denies: fever(s), chills, body aches, fatigue or malaise ENMT: Denies: throat pain or odynophagia Card: Denies: chest pain Resp: Denies: dyspnea GI: Reports: nausea and vomiting; Denies: abdominal pain, diarrhea or change in stool character : Denies: flank pain, dysuria, vaginal odor, vaginal bleeding, vaginal discharge or pelvic pain Musc: Denies: neck pain or back pain Skin/Breast: Denies: rash Neuro: Denies: headache(s) PFSH ED PFSH: Medical History (Updated 03/13/21 @ 00:34 by RIP Redd) No pertinent past medical history neghx: htn,dm,thyroid,dvt/pe PCP: Sandy Forrest Surgical History (Updated 03/11/21 @ 11:11 by Bhavana Anthony APN, FREDDY) Hx of knee surgery (~2017) L knee Family History Grandmother Heart disease Maternal and Paternal Grandfather Heart disease Paternal and Maternal Hypercholesteremia Maternal Hypertension Maternal Stroke Maternal Denies family history of Colon cancer Ovarian cancer Diabetes Breast cancer Uterine cancer Social History Smoking and tobacco status: former smoker Alcohol intake: never Female Reproductive History: Date of last menstrual period: 01/13/21 Physical Exam Const: COMMON NORMALS: no acute distress, average body habitus, patient oriented x3, no limitations, healthy appearing, alert and well nourished Resp: COMMON NORMALS: normal respiratory effort and clear to auscultation bilaterally AUSCULTATION: clear to auscultation bilaterally Cardio: COMMON NORMALS: regular rate and regular rhythm RATE: regular rate RHYTHM: regular rhythm GI: COMMON NORMALS: Normal to inspection, nondistended, normoactive bowel sounds present, Soft to palpation, non-tender, No hepatosplenomegaly present and no masses PALPATION: Yes Soft to palpation and Yes No hepatosplenomegaly present : COMMON NORMALS: Yes no CVA tenderness BLADDER/KIDNEY EXAM: Yes no CVA tenderness Back/Pelvis: COMMON NORMALS: no CVA tenderness Neuro: COMMON NORMALS: patient oriented x3 SENSORIUM/ORIENTATION: Yes alert Course Vital Signs: Vital signs: Vital Signs Temperature 98.3 F 03/12/21 17:18 Pulse Rate 87 03/13/21 00:22 Respiratory Rate 18 03/12/21 22:53 Blood Pressure 115/83 03/13/21 00:22 Pulse Oximetry 100 03/13/21 00:22 MDM - Nausea/Vomiting/Diarrhea MDM Narrative: Medical decision making narrative: Patient reports feeling better while here. She was given IV fluids and Reglan. She was able to hold down crackers, Jell-O, and Sprite. She does not feel like the Diclegis and the Promethazine have been working at home therefore we will try to switch her to Reglan. Other conservative treatments and [id number] therapies were discussed to help with nausea and vomiting in . Recommend follow-up with women's health clinic. Return to ED precautions given. Lab Data: Labs: Lab Results 03/12/21 03/12/21 Range/Units 19:10 19:10 WBC 8.3 (4.5-13.0) 10^3/ uL RBC 4.11 (4.1-5.3) 10^6/u L Hgb 12.8 (11.5-15.3) g/dL Hct 38.6 (37.0-47.0) % MCV 93.9 (81-99) fL MCH 31.1 (28.0-34.0) pg MCHC 33.2 (30.0-36.0) g/dL RDW 12.0 L (12.1-15.1) % Plt Count 253 (130-400) 10^3/c mm MPV 9.3 (7.4-10.4) fL Neut % (Auto) 75.0 % Lymph % (Auto) 17.0 % [place] % (Auto) 7.0 % Eos % (Auto) 0.4 % Baso % (Auto) 0.2 % Neut # (Auto) 6.21 (1.8-8.0) 10^3/u L Lymph # (Auto) 1.4 L (1.5-6.5) 10^3/u L [place] # (Auto) 0.6 (0.2-0.9) 10^3/u L Eos # (Auto) 0.0 (0.0-0.8) 10^3/u L Baso # (Auto) 0.0 (0.0-0.1) 10^3/u L Nucleated RBC % (a uto) 0 % Nucleated RBCs # 0.0 /100WBC Sodium 136 (136-145) mmol/L Potassium 3.6 (3.5-5.1) mmol/L Chloride 102 (98-107) mmol/L Carbon Dioxide 24 (22-29) mmol/L Anion Gap 13.6 (5-19) BUN 6 (6-20) mg/dL Creatinine 0.4 L (0.5-0.9) mg/dL GFR Calculation 203.5 H (90-130) mL/min Glucose 78 (65-115) mg/dL Calculated Osmolal ity 278 L (285-295) mOsm/k g Calcium 8.6 (8.5-10.5) mg/dL Total Bilirubin 0.2 (0.15-1.2) mg/dL AST 15 (0-32) U/L ALT 17 (0-33) U/L Alkaline Phosphata se 53 (35-105) IU/L Total Protein 7.1 (6.6-8.7) g/dL Albumin 4.2 (3.5-5.2) g/dL Globulin 2.9 (1.3-4.6) g/dL Lipase 32 (13-60) U/L Ser , Mike i-Qnt 62457.00 mIU/mL Discharge Plan Discharge Patient Disposition: Home Clinical Impression: Nausea/vomiting in Condition: Stable Prescriptions: New Reglan 10 mg tablet 10 mg PO Q6H PRN (Reason: nausea and vomiting) Qty: 20 RF: 0 Discontinued promethazine 25 mg suppository 25 mg NM Q6H PRN (Reason: nausea and vomiting) Qty: 12 RF: 0 promethazine 25 mg tablet 25 mg PO Q6H PRN (Reason: nausea and vomiting) Qty: 20 RF: 0 No Action doxylamine-pyridoxine (vit B6) [Diclegis] 10-10 mg tablet,delayed release (DR/EC) See Rx Instructions PO .COMPLEX Qty: 120 RF: 0 Discharge Orders: Discharge ED (Routine); Ordered 03/13/21 Ordered By: Ashlyn Payan Referrals: Brigitte Forrest FNP [Primary Care Provider] - Activity Restrictions/Additional Instructions: As discussed you do not feel like the Promethazine or Diclegis is helping much with your nausea therefore we will switch you to Reglan-try taking this 30 mins prior to eating. Dimenhydrinate, Meclizine, and Diphenhydramine are all over the counter medications that are safe to try in . We have discussed avoidance of triggers as well as geo candy. Please follow-up with women's health clinic if symptoms persist so they may further instruct you. You may return to the emergency department at anytime for severe nausea/vomiting, abdominal pain/cramping, vaginal bleeding, or any other concerns you may have. Coding Level of Care Code ED [employer] for Clement Anthony
[2021-03-12] MEDS: sodium chloride 0.9% 1,000 ML 999 ML IV (23:17)
[2021-03-13] MEDS: metoclopramide 5 mg/mL SDV 2 mL 10 MG IVP (00:16)
[2021-03-13 00:22] VITALS: BP 115/83; PULSE 87; O2SAT 100
--- NOTE | 2021-03-13 01:35 | PC.NURSE ---
Patient sent home with 1 tablet metoclopramide 10 mg PO to take at home per provider order.
[2021-03-13 01:36] VITALS: BP 120/78; PULSE 78; RESP 15; TEMP 36.8; O2SAT 98
== END 2021-03-13 01:36 | disposition home or self-care (01) ==
PROVIDERS: Emergency Provider Physician Assistant; PCP Registered Nurse
DX: O26.891 Other specified pregnancy related conditions, first trimester (principal); R11.2 Nausea with vomiting, unspecified; Z3A.08 8 weeks gestation of pregnancy; Z87.891 Personal history of nicotine dependence
CPT/HCPCS: 80053; 83690; 84702; 85025; 96361; 96374; 99283; J2765; J7030

== ENCOUNTER → 2021-03-26 10:26 | Outpatient (BNVA) | payer BC, MEDICAID, SELFPAY | PROVIDERS: PCP Registered Nurse; Visit Provider Obstetrics & Gynecology | DX: O99.341 Other mental disorders complicating pregnancy, first trimester (principal); J45.909 Unspecified asthma, uncomplicated; F41.9 Anxiety disorder, unspecified; F32.9 Major depressive disorder, single episode, unspecified | CPT/HCPCS: 80307; 84315; 86592; 86762; 86803; 86850; 86900; 87086; 87340; 87806 ==

== ENCOUNTER → 2021-04-02 14:39 | Outpatient (BNVA) | payer OTHER, BC, MEDICAID, SELFPAY | PROVIDERS: PCP Registered Nurse; Visit Provider Obstetrics & Gynecology | DX: R42 Dizziness and giddiness (principal) | CPT/HCPCS: 80053 ==

== ENCOUNTER → 2021-04-08 10:00 | Outpatient (BNVA) | payer BC, MEDICAID, SELFPAY | PROVIDERS: PCP Registered Nurse; Visit Provider Obstetrics & Gynecology | DX: O99.340 Other mental disorders complicating pregnancy, unspecified trimester (principal); O26.899 Other specified pregnancy related conditions, unspecified trimester; R51.9 Headache, unspecified; F41.9 Anxiety disorder, unspecified; F32.9 Major depressive disorder, single episode, unspecified; J45.909 Unspecified asthma, uncomplicated | CPT/HCPCS: 81000; 87086; 87491; 87591 ==

== ENCOUNTER → 2021-04-30 10:02 | Outpatient (BNVA) | payer BC, MEDICAID, SELFPAY | PROVIDERS: PCP Registered Nurse; Visit Provider Nurse Practitioner Women's Health | DX: Z34.01 Encounter for supervision of normal first pregnancy, first trimester (principal); Z20.2 Contact with and (suspected) exposure to infections with a predominantly sexual mode of transmission; F41.9 Anxiety disorder, unspecified; F32.9 Major depressive disorder, single episode, unspecified; J45.909 Unspecified asthma, uncomplicated; A74.9 Chlamydial infection, unspecified | CPT/HCPCS: 81000; 87661 ==

== ENCOUNTER → 2021-06-11 12:31 | Outpatient (BNVA) | payer BC, MEDICAID, SELFPAY | PROVIDERS: PCP Registered Nurse; Visit Provider Obstetrics & Gynecology | DX: Z34.80 Encounter for supervision of other normal pregnancy, unspecified trimester (principal) | CPT/HCPCS: 81000 ==

== ENCOUNTER 2021-06-12 14:55 | Outpatient (CLI) | payer BC, MEDICAID, SELFPAY ==
[2021-06-12] VITALS (8 sets, daily range): BP systolic 99–128; BP diastolic 56–69; PULSE 85–107; RESP 18; TEMP 37.1
--- NOTE | 2021-06-12 15:24 | US_ITS ---
WS: [id number] ULTRASOUND OB LIMITED TECHNIQUE: Limited ultrasound examination of the fetus. CLINICAL INFORMATION: decreased movement COMPARISON: None. FINDINGS: Closed cervix measuring 5.4 cm Single interuterine gestation. presentation is vertex Placental location is posterior. Placenta grade: 1 heart rate 150 BPM. Low-lying placenta with tip of the placenta approximately 2.3 cm from the cervix. Recommend third tri mester follow-up. US/US OB limited [id number] IMPRESSION: 1. Single intrauterine gestation with vertex presentation. 2. Normal cardiac activity 150 bpm. 3. Low-lying placenta. Recommend third trimester follow-up.
--- NOTE | 2021-06-12 15:43 | PC.NURSE ---
Pt at 21.4 weeks gestation presented to ER and was directed to OB, with complaint of dizziness, nausea, some vomiting, occasional right sided abdominal pain, and decreased movement. Pt to triage room. Vitals BP 105/56, HR 94, RR 18, pulse ox 98% on room air, temp 98.8 temporal scan. Pt states she has drank 2 glasses of water today, and has had 2 small voids. Pt states she does not feel hungry or thirsty, and has acid reflux. She states the symptoms have been the last two days, and she was last seen in the [facility] yesterday, but did not report the symptoms to Dr Brennan, and had a routine visit with no complications. call center representative Dr Almeida notified and report given, orders for UA, PO hydration, and BPP received.
[2021-06-12 16:01] LABS: Bilirubin Urine Neg (Negative); Blood Urine Neg (Negative); Glucose Urine UA Norm (Normal); Ketones Urine Negative (Negative); Leukocyte Esterase Urine Negative (Negative); Nitrate Urine Negative (Negative); Protein Urine Neg (Negative); Specific Gravity, Urine 1.015 (1.005-1.030); Urine Appearance Cloudy (CLEAR); Urine Color Straw (Yellow); Urobilinogen Urine Norm (Negative); pH Urine 7 (5-7)
[2021-06-12 16:10] LABS: Bacteria Urine 1+ /hpf; WBC Urine 0-4 /hpf (0-5)
[2021-06-12 16:11] LABS: Add Urine Culture? No; Amorphous Sediment Urine 2+ /hpf
== END 2021-06-12 17:00 | disposition home or self-care (01) ==
LOC: OPOB 15:04 → OBGYN 15:05
PROVIDERS: PCP Registered Nurse; Visit Provider Obstetrics & Gynecology
DX: O26.899 Other specified pregnancy related conditions, unspecified trimester (principal); Z3A.00 Weeks of gestation of pregnancy not specified; R10.9 Unspecified abdominal pain
CPT/HCPCS: 76815; 81001; 99211

== ENCOUNTER → 2021-06-16 00:01 | Outpatient (BNVA) | payer BC, MEDICAID, SELFPAY | PROVIDERS: PCP Registered Nurse; Visit Provider Obstetrics & Gynecology | DX: O98.819 Other maternal infectious and parasitic diseases complicating pregnancy, unspecified trimester (principal); A74.9 Chlamydial infection, unspecified | CPT/HCPCS: 87491 ==

== ENCOUNTER → 2021-07-04 13:28 | Outpatient (BNVA) | payer BC, MEDICAID, SELFPAY | PROVIDERS: PCP Registered Nurse; Visit Provider Nurse Practitioner Women's Health | DX: O99.210 Obesity complicating pregnancy, unspecified trimester (principal); O44.40 Low lying placenta NOS or without hemorrhage, unspecified trimester; O98.819 Other maternal infectious and parasitic diseases complicating pregnancy, unspecified trimester; A74.9 Chlamydial infection, unspecified; F41.9 Anxiety disorder, unspecified; F32.9 Major depressive disorder, single episode, unspecified | CPT/HCPCS: 81000 ==

== ENCOUNTER → 2021-07-29 13:33 | Outpatient (BNVA) | payer BC, MEDICAID, SELFPAY | PROVIDERS: PCP Registered Nurse; Visit Provider Obstetrics & Gynecology | DX: O98.819 Other maternal infectious and parasitic diseases complicating pregnancy, unspecified trimester (principal); A74.9 Chlamydial infection, unspecified; O99.210 Obesity complicating pregnancy, unspecified trimester; F41.9 Anxiety disorder, unspecified; F32.9 Major depressive disorder, single episode, unspecified; J45.909 Unspecified asthma, uncomplicated | CPT/HCPCS: 81000; 82950; 85027; 87491 ==

== ENCOUNTER → 2021-08-05 10:48 | Outpatient (BNVA) | payer BC, MEDICAID, SELFPAY | PROVIDERS: PCP Registered Nurse; Visit Provider Nurse Practitioner Family | DX: J02.9 Acute pharyngitis, unspecified (principal); J06.9 Acute upper respiratory infection, unspecified | CPT/HCPCS: 87071; 87880 ==

== ENCOUNTER 2021-08-07 16:02 | Emergency (ER) | payer BC, MEDICAID, SELFPAY ==
[2021-08-07 16:16] VITALS: BP 135/95; PULSE 99; RESP 18; TEMP 36.8; O2SAT 99
--- NOTE | 2021-08-07 16:45 | PC.PHAR ---
pt states she takes care of her own medications-pt states she hasnt taken celexa for a month-pt states since she has been sick she has been taking 2 vitamins a day-pt states she would like a inhaler states she use to have one
[2021-08-07 17:25] VITALS: RESP 18
--- NOTE | 2021-08-07 17:29 | XRR_ITS ---
PROCEDURE INFORMATION: Exam: XR Chest Exam date and time: 08/07/2021 5:29 PM Age: 20 years old Clinical indication: Cough TECHNIQUE: Imaging protocol: XR of the chest. Views: 1 view. COMPARISON: CR XR chest 1V portable [id number] 08/23/2020 12:34 PM FINDINGS: Lungs: Unremarkable. No consolidation. Pleural spaces: Unremarkable. No pleural effusion. No pneumothorax. Heart/Mediastinum: Unremarkable. No cardiomegaly. Bones/joints: Unremarkable. XR/XR chest 1V portable [id number] IMPRESSION: No acute findings. Radiation Dose CTDIVOL = (mGy): DLP = (mGy-cm)
--- NOTE | 2021-08-07 17:59 | W.ED.GENADLT ---
HPI - General Adult General: Chief complaint: Upper Respiratory Infection Stated complaint: SOB Time Seen by Provider: 08/07/21 16:48 History of Present Illness: HPI narrative: Patient is a 20-year-old female at 30 weeks who presents the emergency room for concerns of cough shortness of breath x2 days. 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 Patient was tested yesterday for Covid and was negative. Patient presents for evaluation today. Patient denies any exertional chest pain, shortness of breath, pleuritic chest pain, leg swelling, abdominal complaints or complaints. Reports decreased sense of smell. Onset: 2 days ago Duration:2 days Location:home Severity:mild/moderate Review of Systems Narrative: Constitutional: No fever, no chills. HEENT: No vision changes, +loss of smell CV: No chest pain, no palpitations PULM: +cough, +dyspnea. GI: No abdominal pain, no N/V/D. : No dysuria MSKEL: No muscle pain SKIN: No new rashes, no lesions. NEURO: No headache, no focal weakness. HEME: No visible bruises PSYCH: Normal mood PFSH ED PFSH: Medical History Anxiety and depression Diagnosed as a teenager---on citalopram and stopped upon finding she was . Restarted in the second trimester and doing well Asthma Mild intermittent-diagnosed as a child. Uses her inhaler two or three times a year-last use was in 2019 No pertinent past medical history Denies diabetes, hypertension, seizures, DVT/PE PCP: ENRIQUE Avalos Surgical History Hx of knee surgery (~2017) 2017---left knee surgery arthroscopically for a torn cartilage Family History Grandmother Heart disease Maternal and Paternal Grandfather Heart disease Paternal and Maternal Hypercholesteremia Maternal Hypertension Maternal Stroke Maternal Denies family history of Colon cancer Ovarian cancer Diabetes Breast cancer Uterine cancer Thyroid condition Social History Smoking and tobacco status: former smoker Alcohol intake: never Female Reproductive History: Date of last menstrual period: 01/13/21 Physical Exam Narrative: EXAM NARRATIVE: Head: Atraumatic Eyes: PERRL, conjunctiva without injection ENT: Mucous membrane moist NECK: Supple, ROM intact LUNGS: LCTAB, no crackles/rhonchi CV: RRR, 2+ radial puless b/l ABDOMEN: Soft, nontender in all quadrants EXTREMITY: Normal ROM SKIN: No rash or erythema NEURO: Awake and alert, no focal motor deficits PSYCH: Normal mood and affect Course Vital Signs: Vital signs: Vital Signs Temperature 98.3 F 08/07/21 16:16 Pulse Rate 99 08/07/21 16:16 Respiratory Rate 18 08/07/21 17:25 Blood Pressure 135/95 08/07/21 16:16 Pulse Oximetry 99 08/07/21 16:16 MDM - General Adult MDM Narrative: Medical decision making narrative: 20F at 30 weeks presenting ocugh and shortness of breath x 2 days and loss of taste. XR clearning today. Covid test negative. No suspicion for PE given no pleuritic chest pain, recent immobilization or surgery hemoptysis, or other VTE risk factors. Informed to follow up with COVID PCR. Rx albuterol inahler PRN wheezing Disposition: Discharge. Patient counseled regarding diagnostic impression, treatment plan. Patient given ED strict return precautions to return for continuation, worsening, or development of new symptoms. Instructed to f/u w/ PCP regarding symptoms today. Patient verbalized understanding. Lab Data: Labs: Lab Results 08/07/21 08/07/21 08/07/21 17:54 17:54 17:54 Nasal/Oral COVID-1 9 PCR Not detected Influenza Type A A g Negative (Negative) Influenza Type B A g Negative (Negative) SARS-CoV-2 Ag (Rap id) Negative (Negative) Imaging Data^: Other Imaging: Radiologist's impression: [address] [id number] ReportSigned Patient: Yessenia Lee #: [id number]: [id number]#:[id number]/Sex: 20 / FADM Date: 08/07/21Loc: ERRoom/Bed:Attending Dr: Ordering Provider/Ordering MD: Ronnie Alex MD Date of Service: 08/07/21 Procedure(s): XR chest 1V portable 05001 Accession Number(s): [id number] Report Number: [id number] PROCEDURE INFORMATION: Exam: XR Chest Exam date and time: 08/07/2021 5:29 PM Age: 20 years old Clinical indication: Cough TECHNIQUE: Imaging protocol: XR of the chest. Views: 1 view. COMPARISON: CR XR chest 1V portable [id number] 08/23/2020 12:34 PM FINDINGS: Lungs: Unremarkable. No consolidation. Pleural spaces: Unremarkable. No pleural effusion. No pneumothorax. Heart/Mediastinum: Unremarkable. No cardiomegaly. Bones/joints: Unremarkable. XR/XR chest 1V portable [id number] IMPRESSION: No acute findings. Radiation Dose CTDIVOL = (mGy): DLP = (mGy-cm) Dictated By:Eduar Suh By:Eduar Suh Date/Time:08/07/211828DD/ 28 Discharge Plan Discharge Patient Disposition: Home Clinical Impression: Cough, Condition: Stable Prescriptions: New albuterol sulfate 90 mcg/actuation HFA aerosol inhaler 1 inh inhalation Q6H PRN (Reason: shortness of breath or wheezing) 5 Days Qty: 8.5 RF: 0 No Action azithromycin [Zithromax Z-Judd] 250 mg tablet See Rx Instructions PO .COMPLEX Qty: 6 RF: 0 ferrous sulfate 325 mg (65 mg iron) tablet,delayed release (DR/EC) 325 mg PO BID Qty: 90 RF: 1 Mucinex Sinus-Max Cng-Pain(DM) 5-10-325 mg Capsule 1 cap PO ONCE RF: 0 Multivitamins 28 mg iron- 800 mcg Tablet 2 tab PO DAILY RF: 0 Discharge Orders: Discharge ED (Routine); Ordered 08/07/21 Ordered By: Ronnie Alex Discharge Diet: Advance as tolerated Discharge Activity: Resume usual activity Patient Instructions: Acute Cough (ED) Activity Restrictions/Additional Instructions: Please follow-up with your primary care provider for further evaluation of your symptoms. Come back to the emergency room if having new or concerning issues. Come back to the emergency room if your symptoms worsen, have any shortness of breath, fever/chills, dehydration, inability tolerate p.o., any difficulty breathing, or any new or concerning complaints. 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
[2021-08-07 18:33] LABS: SARS Covid-2 Antigen Negative (Negative)
[2021-08-07 18:35] LABS: Influenza A by IFA Negative (Negative); Influenza B by IFA Negative (Negative)
[2021-08-08 16:48] LABS: Coronavirus Test Green County Not Detected
== END 2021-08-07 18:46 | disposition home or self-care (01) ==
PROVIDERS: Emergency Provider Emergency Medicine
DX: O26.893 Other specified pregnancy related conditions, third trimester (principal); R05.9 Cough, unspecified; Z3A.30 30 weeks gestation of pregnancy; Z87.891 Personal history of nicotine dependence; Z20.822 Contact with and (suspected) exposure to COVID-19
CPT/HCPCS: 71045; 87426; 87635; 87804; 99282

== ENCOUNTER → 2021-08-11 10:58 | Outpatient (BNVA) | payer BC, MEDICAID, SELFPAY | PROVIDERS: Visit Provider Obstetrics & Gynecology | DX: Z34.80 Encounter for supervision of other normal pregnancy, unspecified trimester (principal) | CPT/HCPCS: 81000 ==

== ENCOUNTER → 2021-08-26 08:12 | Outpatient (BNVA) | payer BC, MEDICAID, SELFPAY | PROVIDERS: Visit Provider Obstetrics & Gynecology | DX: Z34.80 Encounter for supervision of other normal pregnancy, unspecified trimester (principal) | CPT/HCPCS: 81000 ==

== ENCOUNTER 2021-09-02 10:57 | Outpatient (CLI) | payer BC, MEDICAID, SELFPAY ==
[2021-09-02] VITALS (10 sets, daily range): BP systolic 110–135; BP diastolic 51–77; PULSE 70–86; RESP 16–17; BMI 42.2
[2021-09-02 12:38] LABS: Amorphous Sediment Urine 1+ /hpf; Bacteria Urine 1+ /hpf; Bilirubin Urine Neg (Negative); Blood Urine Neg (Negative); Glucose Urine UA Norm (Normal); Ketones Urine Negative (Negative); Leukocyte Esterase Urine Negative (Negative); Nitrate Urine Negative (Negative); Protein Urine Neg (Negative); Specific Gravity, Urine 1.015 (1.005-1.030); Sulfosalicylic Acid Urine Negative (Negative); Urine Appearance Clear (CLEAR); Urine Color Straw (Yellow); Urobilinogen Urine Norm (Negative); WBC Urine 0-4 /hpf (0-5); pH Urine 8 (5-7)
--- NOTE | 2021-09-02 12:51 | PM.ACPR ---
Procedure/Consent Procedure Narrative: NONSTRESS TEST: [place] [facility] [place] Indication: 20-year-old one para zero at 33 weeks with abdominal pain Date and time of test: 09/02/2021, 12:50 PM Baseline: 135 Variability: Moderate variability Accelerations: Accelerations present Decelerations: No decelerations Tocometry: no Contractions INTERPRETATION: NST reactive, continue kick counts
== END 2021-09-02 13:05 | disposition home or self-care (01) ==
LOC: OPOB 11:06 → OBGYN 11:08
PROVIDERS: Visit Provider Obstetrics & Gynecology
DX: O47.9 False labor, unspecified (principal); Z3A.33 33 weeks gestation of pregnancy
CPT/HCPCS: 59025; 81001; 87086; 99211

== ENCOUNTER 2021-09-09 10:25 | Outpatient (CLI) | payer BC, MEDICAID, SELFPAY ==
[2021-09-09 10:37] VITALS: BP 149/77; PULSE 95; TEMP 36.8
--- NOTE | 2021-09-09 10:51 | US_ITS ---
WS: [id number] BIOPHYSICAL PROFILE AMNIOTIC FLUID HISTORY: DECREASED MOVEMENT COMPARISON: 08/26/2021 Cardiac activity: 150 bpm. Cervix: 4.2 cm Placenta: Posterior, no previa or abruption. Placenta grade: 2 Parameters are as follows: Breathin Movement: 2 Tone: 2 Fluid volume: 2 US/US OB BPP wo NST 90107 IMPRESSION: 1. Biophysical profile score: 8/8. 2. Normal cardiac activity.
[2021-09-09 10:57] VITALS: BP 135/78; PULSE 88
[2021-09-09 11:05] VITALS: BMI 42.9
[2021-09-09 11:17] VITALS: BP 118/72; PULSE 97
[2021-09-09 11:25] VITALS: BP 118/72; PULSE 97; RESP 18; TEMP 36.8
--- NOTE | 2021-09-09 14:06 | PM.ACPR ---
Procedure/Consent Procedure Narrative: NONSTRESS TEST: Place of test: [facility] [place]-L&D Indication: 20-year-old 1 para 0 at 34+ weeks gestation, decreased movement Date and time of test: 09/09/2021, 10:30 AM Baseline: 145 Variability: Moderate variability Accelerations: Accelerations present Decelerations: No decelerations Tocometry: no Contractions INTERPRETATION: NST reactive-correlate with BPP, continue kick counts
== END 2021-09-09 11:25 | disposition home or self-care (01) ==
LOC: OPOB 10:33 → OBGYN 10:34
PROVIDERS: Visit Provider Obstetrics & Gynecology
DX: O36.8190 Decreased fetal movements, unspecified trimester, not applicable or unspecified (principal)
CPT/HCPCS: 59025; 76819; 81000; 99211

== ENCOUNTER → 2021-09-24 10:35 | Outpatient (BNVA) | payer BC, MEDICAID, SELFPAY | PROVIDERS: Visit Provider Obstetrics & Gynecology | DX: O98.819 Other maternal infectious and parasitic diseases complicating pregnancy, unspecified trimester (principal); A74.9 Chlamydial infection, unspecified | CPT/HCPCS: 84315; 87081; 87491 ==

== ENCOUNTER → 2021-09-30 08:59 | Outpatient (BNVA) | payer BC, MEDICAID, SELFPAY | PROVIDERS: Visit Provider Obstetrics & Gynecology | DX: Z34.80 Encounter for supervision of other normal pregnancy, unspecified trimester (principal) | CPT/HCPCS: 81000 ==

== ENCOUNTER → 2021-10-01 09:50 | Outpatient (BNVA) | payer BC, MEDICAID, SELFPAY | PROVIDERS: Visit Provider Obstetrics & Gynecology | DX: O16.9 Unspecified maternal hypertension, unspecified trimester (principal) | CPT/HCPCS: 82570; 84156 ==

== ENCOUNTER 2021-10-02 12:46 | Inpatient (IN) | payer OTHER, BC, SELFPAY ==
[2021-10-02] VITALS (75 sets, daily range): BP systolic 127–186; BP diastolic 65–110; PULSE 63–100; RESP 16–18; TEMP 36.6–36.8; O2SAT 97–99; BMI 45.1
[2021-10-02] MEDS: miSOPROStol 100 mcg tablet 25 MCG VAGINAL ×4 (11:09→23:41)
[2021-10-02 11:41] LABS: Basophils % 0.3 %; Eosinophils % 0.4 %; Hematocrit 33.8 % (37.0-47.0); Hemoglobin 11.2 g/dL (11.5-15.3); Lymphocytes # 1.2 10^3/uL (1.5-6.5); Lymphocytes % 11.5 %; Mean Corpuscular HGB Conc 33.1 g/dL (30.0-36.0); Mean Corpuscular Hemoglobin 30.9 pg (28.0-34.0); Mean Corpuscular Volume 93.1 fl (81-99); Mean Platelet Volume 10.9 fL (7.4-10.4); Monocytes # 0.5 10^3/uL (0.2-0.9); Monocytes % 5.4 %; Neutrophils # 8.17 10^3/uL (1.8-8.0); Neutrophils % 81.3 %; Nucleated Red Blood Cells % 0 %; Platelet Count 240 10^3/cmm (130-400); Red Blood Count 3.63 10^6/uL (4.1-5.3); Red Cell Distribution Width 13.4 % (12.1-15.1)
[2021-10-02 12:17] LABS: Alanine Aminotransferase 7 U/L (0-33); Albumin Level 3.3 g/dL (3.5-5.2); Alkaline Phosphatase 140 IU/L (35-105); Anion Gap 17.4 (5-19); Aspartate Amino Transferase 11 U/L (0-32); Blood Urea Nitrogen 4 mg/dL (6-20); Calcium 8.1 mg/dL (8.5-10.5); Carbon Dioxide 18 mmol/L (22-29); Chloride 108 mmol/L (98-107); Globulin 2.6 g/dL (1.3-4.6); Glomerular Filtration Rate 203.5 mL/min (90-130); Glucose 83 mg/dL (65-115); Osmolality Calculated 286 mOsm/kg (285-295); Potassium 3.4 mmol/L (3.5-5.1); Sodium 140 mmol/L (136-145); Total Bilirubin 0.2 mg/dL (0.15-1.2); Total Protein 5.9 g/dL (6.6-8.7); Uric Acid 4.2 mg/dL (2.4-5.7)
[2021-10-02] MEDS: hyDROXYzine 25 mg Capsule 50 MG PO ×2 (14:25→19:13)
[2021-10-02] MEDS: dextrose 5%-lactated ringers 1,000 ML 125 ML IV (15:02)
[2021-10-02] MEDS: magnesium sulfate premix 20 GM/500 ML BAG IV ×2 (15:02→23:35)
[2021-10-02] MEDS: magnesium sulfate premix 4 GM/100 ML PREMIX IV (15:02)
[2021-10-02] MEDS: ampicillin 2,000 MG in sodium chloride 0.9% (plus) 50 ML 100 MG IV (15:27)
--- NOTE | 2021-10-02 16:13 | PM.OPHPUD ---
Labor & Delivery H&P Update Date of Procedure: October 02, 2021 Date H&P Performed: 09/30/21 H&P update information: I have reviewed H&P completed within last 30 days, I have examined patient prior to procedure and Changes to prior documentation as noted here Changes to previous documentation: The patient had a urine/protein creatinine ratio that was elevated at .55. She also has had labile blood pressures and severe edema. She denies any other symptoms. She was asked to present to labor and delivery for induction for preeclampsia. On admission, her blood pressures have been intermittently in the severe range. Magnesium sulfate was started. GBS prophylaxis was also started. No change in cervical exam on admission. Admission Diagnosis: at 37 3/7 Related Problem List Diagnoses (1) Elevated blood pressure affecting , antepartum: (2) GBS (group B Streptococcus carrier), +RV culture, currently : (3) Anemia affecting in third trimester: (4) Obesity affecting : (5) Severe preeclampsia: (6) Proteinuria affecting :
[2021-10-02] MEDS: acetaminophen 325 mg Tablet 650 MG PO (16:47)
[2021-10-02] MEDS: fentaNYL 50 mcg/mL INJ 2mL IVP ×3 (17:33→21:54)
[2021-10-02] MEDS: ampicillin 1,000 MG in sodium chloride 0.9% (plus) 50 ML 100 MG IV ×2 (19:03→23:33)
[2021-10-02 21:46] LABS: Magnesium Level (OB Only) 3.8 mg/dL (5.0-7.5)
[2021-10-03] VITALS (152 sets, daily range): BP systolic 115–191; BP diastolic 58–128; PULSE 74–109; RESP 16–18; TEMP 36.3–36.9; O2SAT 89–99
[2021-10-03] MEDS: labetalol 5 mg/mL SDV 20mL 20 MG IVP (00:23)
[2021-10-03] MEDS: ampicillin 1,000 MG in sodium chloride 0.9% (plus) 50 ML 100 MG IV ×6 (03:20→23:12)
[2021-10-03] MEDS: fentaNYL 50 mcg/mL INJ 2mL IVP ×4 (03:22→13:07)
[2021-10-03] MEDS: dextrose 5%-lactated ringers 1,000 ML 999 ML IV (05:48)
--- NOTE | 2021-10-03 06:49 | P.PN_ITS ---
Vitals/I&O/Wt Last Vital Signs Temp 97.3 F L 10/03/21 10:12 Pulse 82 10/03/21 15:34 Resp 16 10/03/21 14:16 BP 173/108 10/03/21 15:34 Pulse Ox 97 10/02/21 15:34 10/03/21 10/03/21 10/03/21 06:59 14:59 22:59 Intake Total 1485.833 / 0639.151 3055.433 / 2584.433 277.5 / 2861.933 Output Total 3850 / 6100 2150 / 2150 Balance -2364.167 / -4172.500 434.433 / 434.433 277.5 / 711.933 Weight last 48 hrs Weight 263 lb Physical Exam Narrative: EXAM NARRATIVE: The patient has received 4 doses of cytotec and has had breakfast and started on pitocin. The status remains overall very reassuring. The patient is not feeling any contractions currently. Cervix remains soft, but closed. she continues to have magnesium sulfate infusing. Const: COMMON NORMALS: no acute distress, patient oriented x3, no limitations, healthy appearing, alert and well nourished GENERAL APPEARANCE: cooperative, comfortable, well kempt and well developed ORIENTATION/CONSCIOUSNESS: Yes awake, Yes oriented to person, Yes oriented to place and Yes oriented to time Resp: COMMON NORMALS: normal respiratory effort EFFORT & INSPECTION: Yes able to speak in complete sentences GI: COMMON NORMALS: Soft to palpation and non-tender PALPATION: Yes Soft to palpation Extremity: COMMON NORMALS: no calf tenderness Neuro: COMMON NORMALS: patient oriented x3 SENSORIUM/ORIENTATION: Yes alert, Yes oriented to person, Yes oriented to place and Yes oriented to time Psych: APPEARANCE: Yes well kempt Urinary Catheter Management^: Bass Latex: Cath Placed During This Visit: yes Reason for Continuing Indwelling Catheter: Accurate Measurement of Urinary Output in Critically Ill Patients Urinary Catheter Date of Insertion: 10/02/21 Urinary Catheter Time of Insertion: 15:35 Data : 10/02/21 11:00 10/02/21 11:00 A&P Assessment and plan (1) Severe preeclampsia: 2 gram/ hour mag sulfate infusion continue mag level every 6 hours labs have been normal with the exception of the increased protein/creatinine ratio The patient had 2 severe blood pressures in a row last night and received a dose of 20 mg of labetolol IV They have been in parameter since Status: Acute (2) GBS (group B Streptococcus carrier), +RV culture, currently : started on GBS prophylaxis Status: Acute (3) Obesity affecting : Status: Acute (4) Anemia affecting in third trimester: Status: Acute Attestations Medical Necessity Statement*: The patient is here for labor induction. 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
[2021-10-03 06:50] LABS: Magnesium Level (OB Only) 4.6 mg/dL (5.0-7.5)
[2021-10-03] MEDS: hyDROXYzine 25 mg Capsule 50 MG PO ×2 (07:18→11:31)
[2021-10-03] MEDS: ondansetron 2 mg/ML SDV 2 mL 4 MG IVP ×2 (07:42→20:18)
[2021-10-03] MEDS: dextrose 5%-lactated ringers 1,000 ML 75 ML IV (08:44)
[2021-10-03] MEDS: oxytocin 30 UNIT/500 ML BAG IV (08:45)
[2021-10-03] MEDS: magnesium sulfate premix 20 GM/500 ML BAG IV ×2 (09:49→19:06)
[2021-10-03] MEDS: acetaminophen 325 mg Tablet 650 MG PO ×2 (13:06→17:49)
[2021-10-03 13:33] LABS: Magnesium Level (OB Only) 4.5 mg/dL (5.0-7.5)
[2021-10-03] MEDS: lactated ringers 1,000 ML 500 ML IV (15:21)
--- NOTE | 2021-10-03 16:11 | ANES.PREANE2 ---
Pre-Anesthetic Assessment Pre-Anesthetic Assessment: Height/Weight: Height 1.63 m Weight 119.295 kg Temp Pulse Resp BP Pulse Ox 97.3 F L 102 H 16 153/91 98 10/03/21 10:12 10/03/21 16:08 10/03/21 14:16 10/03/21 16:07 10/03/21 16:08 Was Beta Hunter taken within 24 hours: N/A Was Clonidine taken within 24 hours: N/A Social: Social History: No alcohol and No tobacco Exam: Pre-Anes Outpt Exam: alert, oriented x 3, clear to auscultation bilaterally and regular rate & rhythm Airway: Submandibular: WNL Cervical ROM: WNL MP: 2 Dentition: Full History/ROS: No significant history except as noted Anesthetic Plan: ASA status: 2 Other: Labor epidural (Pre E) Risk of > 500 ml blood loss (7ml/kg in children): No Meds/Allergies Current Medications: Current Medications Generic Name Dose Route Start Last Admin Trade Name Freq PRN Reason Stop Dose Admin Acetaminophen 650 mg 10/02/21 10:28 10/03/21 13:06 Acetaminophen 32 5 Mg Tablet PO 650 mg Q6H PRN Administration MILD TO MODERATE PAIN Fentanyl 25 - 100 mcg 10/02/21 10:28 10/03/21 13:07 Fentanyl 50 Mcg/ Ml Inj 2ml IVP 100 mcg Q1H PRN Administration SEVERE PAIN Hydroxyzine Pamoat e 50 mg 10/02/21 10:28 10/03/21 11:31 Hydroxyzine 25 M g Capsule PO 50 mg Q4H PRN Administration Sleep, Agitation or Itching Dextrose/Lactated Ringer's 1,000 mls @ 125 m ls/hr 10/02/21 14:30 10/03/21 15:22 Dextrose 5%-Lact ated Ringers IV Infused .Q8H JODY Infusion Magnesium Sulfate 20 gm in 500 mls @ 50 mls/hr 10/02/21 14:30 10/03/21 11:40 Magnesium Sulfat e Premix IV 50 mls/hr .Q10H JODY Infusion Ampicillin Sodium 1,000 mg/ 50 mls @ 100 mls/ hr 10/02/21 19:15 10/03/21 15:35 Sodium Chloride IV Infused Q4H JODY Infusion Protocol Dextrose/Lactated Ringer's 1,000 mls @ 999 m ls/hr 10/03/21 05:36 10/03/21 07:00 Dextrose 5%-Lact ated Ringers IV Infused .Q1H1M PRN Infusion LABOR INDUCTION Oxytocin 30 unit in 500 ml s @ 1 mls/hr 10/03/21 07:45 10/03/21 14:59 Pitocin IV 20 milliunit/min .Q24H JODY 20 mls/hr Titration Protocol 1 MILLIUNIT/MIN Lactated Ringer's 1,000 mls @ 999 m ls/hr 10/03/21 07:36 10/03/21 15:21 Lactated Ringers IV 500 mls/hr .Q1H1M PRN Administration Per L&D Rescitati on Protocol Ropivacaine 200 mg in 100 mls @ 13 mls/hr 10/03/21 15:15 10/03/21 16:10 Naropin Premix EPIDURAL 13 mls/hr .Q7H42M JODY Administration Labetalol HCl 20 mg 10/03/21 00:17 10/03/21 00:23 Labetalol 5 Mg/M l Sdv 20ml IVP 20 mg PRN PRN Administration HYPERTENSION Protocol Ondansetron HCl 4 mg 10/02/21 10:28 10/03/21 07:42 Ondansetron 2 Mg /Ml Sdv 2 Ml IVP 4 mg Q4H PRN Administration NAUSEA AND VOMITI NG PFSH Anesthesia PFSH: Medical History Anxiety and depression Diagnosed as a teenager---on citalopram and stopped upon finding she was . Restarted in the second trimester and doing well Asthma Mild intermittent-diagnosed as a child. Uses her inhaler two or three times a year-last use was in 2019 No pertinent past medical history Denies diabetes, hypertension, seizures, DVT/PE PCP: ENRIQUE Avalos Surgical History Hx of knee surgery (~2016) 2017---left knee surgery arthroscopically for a torn cartilage Family History Grandmother Heart disease Maternal and Paternal Grandfather Heart disease Paternal and Maternal Hypercholesteremia Maternal Hypertension Maternal Stroke Maternal Denies family history of Colon cancer Ovarian cancer Diabetes Breast cancer Uterine cancer Thyroid condition Female Reproductive History: Date of last menstrual period: 01/13/21 : 1 Data Anesthesia CBC & Chem 7: 10/02/21 11:00 10/02/21 11:00 Other Labs: Laboratory Results - last 48 hr 10/02/21 10/02/21 10/02/21 11:00 11:00 21:15 WBC 10.0 RBC 3.63 L Hgb 11.2 L Hct 33.8 L MCV 93.1 MCH 30.9 MCHC 33.1 RDW 13.4 Plt Count 240 MPV 10.9 H Neut % (Auto) 81.3 Lymph % (Auto) 11.5 Cla[place]orne % (Auto) 5.4 Eos % (Auto) 0.4 Baso % (Auto) 0.3 Neut # (Auto) 8.17 H Lymph # (Auto) 1.2 L [place] # (Auto) 0.5 Eos # (Auto) 0.0 Baso # (Auto) 0.0 Nucleated RBC % (auto) 0 Nucleated RBCs # 0.0 Sodium 140 Potassium 3.4 L Chloride 108 H Carbon Dioxide 18 L Anion Gap 17.4 BUN 4 L Creatinine 0.4 L GFR Calculation 203.5 H Glucose 83 Calculated Osmolality 286 Uric Acid 4.2 Calcium 8.1 L Magnesium 3.8 L* Total Bilirubin 0.2 AST 11 ALT 7 Alkaline Phosphatase 140 H Total Protein 5.9 L Albumin 3.3 L Globulin 2.6 10/03/21 10/03/21 06:11 12:50 WBC RBC Hgb Hct MCV MCH MCHC RDW Plt Count MPV Neut % (Auto) Lymph % (Auto) Cla[place]orne % (Auto) Eos % (Auto) Baso % (Auto) Neut # (Auto) Lymph # (Auto) [place]orne # (Auto) Eos # (Auto) Baso # (Auto) Nucleated RBC % (auto) Nucleated RBCs # Sodium Potassium Chloride Carbon Dioxide Anion Gap BUN Creatinine GFR Calculation Glucose Calculated Osmolality Uric Acid Calcium Magnesium 4.6 L* 4.5 L* Total Bilirubin AST ALT Alkaline Phosphatase Total Protein Albumin Globulin Cardiac Studies: No Data to Display
--- NOTE | 2021-10-03 16:12 | ANES.PROC ---
Anesthesia Procedures Procedure/Date: 10/03/21 Epidural: Time Out Performed: Yes Consents Signed: Procedure Consent Consent: requested by attending/covering physician Lumbar Level: L3-L4 Epidural position: sitting Epidural procedure: sterile prep of area, 1% lidocaine to numb the area, 18 g needle, neg for paresthesia, test dose given, placed PCEA, no systemic response, sterile dressing applied and 0.2% Ropiavacaine @ mls/hr (13) Additional Comments: SHUKRI at 7cm, cath at 12cm
[2021-10-03 16:17] LABS: Coronavirus Test Green County Not Detected
[2021-10-03] MEDS: potassium chloride ER 10 mEq Tablet 20 MEQ PO (17:47)
[2021-10-03 18:16] LABS: Magnesium Level (OB Only) 4.8 mg/dL (5.0-7.5)
--- NOTE | 2021-10-03 18:21 | PC.NURSE ---
Magnesium of 4.[address] Brennan. Orders to increase magnesium sulfate to 2.5gm/hr. Redraw mag level at 2330
[2021-10-03] MEDS: dextrose 5%-lactated ringers 1,000 ML 62.5 ML IV (19:06)
[2021-10-04] VITALS (83 sets, daily range): BP systolic 112–186; BP diastolic 63–114; PULSE 79–111; RESP 18; TEMP 36.3–37.8
[2021-10-04 00:16] LABS: Magnesium Level (OB Only) 5.7 mg/dL (5.0-7.5)
[2021-10-04] MEDS: magnesium sulfate premix 20 GM/500 ML BAG IV ×3 (03:16→21:49)
[2021-10-04] MEDS: ampicillin 1,000 MG in sodium chloride 0.9% (plus) 50 ML 100 MG IV ×4 (03:18→15:37)
[2021-10-04] MEDS: acetaminophen 325 mg Tablet 650 MG PO (03:35)
[2021-10-04] MEDS: potassium chloride ER 10 mEq Tablet 20 MEQ PO ×2 (06:04→17:55)
[2021-10-04 08:40] LABS: Actim Prom Positive
[2021-10-04] MEDS: labetalol 5 mg/mL SDV 20mL 20 MG IVP ×2 (08:40→17:54)
[2021-10-04] MEDS: ondansetron 2 mg/ML SDV 2 mL 4 MG IVP ×2 (09:17→16:27)
--- NOTE | 2021-10-04 09:46 | PM.MISC ---
Miscellaneous Note Purpose of Documentation: Water broke spontaneously, became uncomfortable--epidural bolused 100mcg fent and 5mls of 2% lido.
--- NOTE | 2021-10-04 09:56 | PC.NURSE ---
Anesthesia notified due to pt being uncomfortable. Anesthesia coming in to bolus pt.
[2021-10-04] MEDS: dextrose 5%-lactated ringers 1,000 ML 50 ML IV (10:30)
[2021-10-04 13:20] LABS: Magnesium Level (OB Only) 6.4 mg/dL (5.0-7.5)
[2021-10-04] MEDS: alum-mag-hydroxide-sime 30 mL UDC PO (14:12)
[2021-10-04] MEDS: lidocaine 2% INJ 20 mL INJECTION (17:15)
--- NOTE | 2021-10-04 17:33 | PM.DELIVERY ---
Delivery Note: Date of delivery: October 04, 2021 - PRE-DELIVERY DIAGNOSIS: 20-year-old 1 para 0 at 37 weeks and 3 days gestation Severe preeclampsia at term on magnesium sulfate Morbid obesity with a BMI of 45 GBS positive-on ampicillin Anemia on iron Chlamydia status post treatment with negative test of cure Anxiety and depression no medication Mild asthma POST-DELIVERY DIAGNOSIS: Vaginal delivery on 10/04/2021 Severe preeclampsia on magnesium sulfate PROCEDURE: Vaginal delivery on 10/04/2021 ANESTHESIA: Epidural anesthesia, 2% lidocaine DELIVERING PHYSICIAN: Janeth Brennan FACMAILE PRE-DELIVERY COURSE: Ms. Lee is a 20-year-old 1 para 0 at 37 weeks and 3 days who was diagnosed with severe preeclampsia based on an elevated blood pressure, increased swelling and a protein creatinine ratio of 0.55 . She was sent to labor and delivery for induction of labor as she was already 37 weeks. was complicated by morbid obesity and excessive weight gain of over 60 pounds, chlamydia infection which was treated with negative test of cure at 36 weeks, GBS positive, anemia on iron and mild asthma with occasional albuterol use. ----> On presentation to labor and delivery on October 02, 2021 her cervix was closed thick and high and she had a category 1 tracing. She was noted to have severe blood pressure elevations and was started on magnesium sulfate. Her blood pressures remained largely normotensive with occasional elevations in no elevations in the severe range after being started on magnesium sulfate. She was also started on antibiotics for GBS prophylaxis. She had no other preeclamptic symptoms. Induction was started with Cytotec x4 which was placed at 11 AM, 3 PM, 7 PM and 11 PM. At 3 AM on October 03, 2021 she had made minimal cervical change to fingertip and 50% effaced. During this time she was uncomfortable and epidural was placed. Throughout her labor once magnesium was started she had SCDs on to decrease her risk of DVTs. She was aissatou irregularly after this and was allowed to eat and rest after which she was started on Pitocin at 8:30 a.m. on 10/02/2021. She was continued on Pitocin till 7:30 PM and reached a maximum of 20 mIU. This part of her labor managed by Dr. Newman and then I came on at 5 PM on October 03, 2021. She was noted to have a low potassium and this was replaced with K-Dur and magnesium was found to be better therapeutic levels and was increased to 2.5 mg an hour and with this medication levels were therapeutic. Patient had a regular contractions and on examination was 1 cm 50% and -3 cm to -4 station. Pitocin was turned off and she was given a meal and allowed therapeutic rest and Pitocin was restarted at midnight on October 04, 2021. It was titrated to a maximum of 15 mIU. With this she started to have more regular contractions she had spontaneous rupture of membranes at 7:49 AM on October 04, 2021 at which time she was wanted to 70% and -2 station. Fluid was clear. She started to make cervical change after this and was 3 to 4 cm 90% and -2 station at 10 AM. She was 6 to 7 cm at 1 PM 8 cm at 2 PM and fully dilated at 3 PM. Up until this point tracing was category 1 with regular contractions. She did have a 4-minute deceleration when she was fully dilated as she was throwing up but tracing recovered well after this and remained category 1 for the remainder of her labor and delivery. DELIVERY NOTE: She was set up in lithotomy position and was pushing effectively. She was noted to be +3 station and continued pushing well. The head delivered in LISET position, no nuchal cord was present. The shoulders and rest of the body followed with her next push. The baby's mouth and nose were suctioned and the baby was placed on the mother's belly. Once cord pulsations stopped the cord was clamped and cut and the baby handed to waiting category analyst Dr. Dumont. The umbilical cord broke on trying to deliver the placenta and the remainder of the placenta was delivered manually without any difficulty -- intact with membranes and was discarded. The fundus was noted to be firm and well contracted and manual exploration revealed no abnormalities. The vagina and cervix were inspected and no cervical or sulcal lacerations were noted. The perineum was noted to be intact except for second-degree tear which was repaired. With a 3-0 Vicryl on a CT1 without any difficulty. Good reapproximation and hemostasis was achieved. Baby girl Laynie born at 5:01 PM on 10/04/2021 with 8/9, weighing 7 pounds 7 ounces, 3380 g, 20-3/4 inches long. Placenta was delivered manually and was intact with membranes and cord. Cotyledons were intact , inserted umbilical cord with 3 vessels noted. Estimated blood loss 300 mL. Complications-none, both baby and mother were left to recover in a stable condition. Mother will be receiving magnesium sulfate for 24 hours with severe preeclampsia for seizure prophylaxis This documentation was created by [employer] principle software engineer software (known for inherent principle software engineer error). Every effort was made to assure accuracy of principle software engineer. Any obvious errors or omissions should be clarified with the author of the document. History History History 1 Term 1 Miscarriages/Ectopic 0 0 Living Children 1 Other History: X 1 1---> 10/04/2021--vaginal delivery at 37 weeks and 5 days--induction of labor for severe preeclampsia. Baby girl (Ashok Penaloza )weighing [address] Brennan at 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
[2021-10-04] MEDS: fentaNYL 50 mcg/mL INJ 2mL IVP (18:33)
[2021-10-04] MEDS: labetalol 5 mg/mL SDV 20mL 40 MG IVP (18:33)
[2021-10-04 18:34] LABS: Magnesium Level (OB Only) 6.5 mg/dL (5.0-7.5)
[2021-10-04] MEDS: oxytocin 30 UNIT/500 ML BAG 300 UNIT IV (19:27)
[2021-10-04] MEDS: HYDROcodone-acetaminophen 5-325 mg Tablet PO (19:29)
[2021-10-04] MEDS: ibuprofen 800 mg tablet PO (21:45)
[2021-10-05] VITALS (23 sets, daily range): BP systolic 127–151; BP diastolic 72–94; PULSE 74–107; TEMP 36.4–37.3
[2021-10-05 00:29] LABS: Magnesium Level (OB Only) 5.6 mg/dL (5.0-7.5)
[2021-10-05] MEDS: HYDROcodone-acetaminophen 5-325 mg Tablet PO ×3 (04:18→20:49)
[2021-10-05] MEDS: potassium chloride ER 10 mEq Tablet 20 MEQ PO (06:00)
[2021-10-05] MEDS: magnesium sulfate premix 20 GM/500 ML BAG IV (07:28)
[2021-10-05 07:36] LABS: Hematocrit 29.2 % (37.0-47.0); Hemoglobin 9.6 g/dL (11.5-15.3); Mean Corpuscular HGB Conc 32.9 g/dL (30.0-36.0); Mean Corpuscular Hemoglobin 30.6 pg (28.0-34.0); Mean Platelet Volume 10.7 fL (7.4-10.4); Platelet Count 228 10^3/cmm (130-400); Red Blood Count 3.14 10^6/uL (4.1-5.3); Red Cell Distribution Width 13.3 % (12.1-15.1); White Blood Count 11.9 10^3/uL (4.5-13.0)
[2021-10-05 07:44] LABS: Potassium 3.3 mmol/L (3.5-5.1)
[2021-10-05] MEDS: dextrose 5%-lactated ringers 1,000 ML 75 ML IV (07:49)
[2021-10-05 07:50] LABS: Magnesium Level (OB Only) 5.8 mg/dL (5.0-7.5)
[2021-10-05] MEDS: docusate sodium 100 mg Capsule PO (08:02)
[2021-10-05] MEDS: prenatal vitamin Capsule 1 CAP PO (08:02)
[2021-10-05] MEDS: ibuprofen 800 mg tablet PO ×3 (08:02→20:43)
--- NOTE | 2021-10-05 08:02 | ANE.PACU2 ---
Inpatient post-anesthesia follow up: Airway intact: Yes Vital signs: Temperature 98.7 F Pulse Rate 86 Respiratory Rate 18 Blood Pressure 145/88 Pulse Oximetry 97 Oxygen Delivery Me thod Room Air Oxygen Flow Rate Fraction of Inspir ed Oxygen Hydration adequate: Yes Nausea and vomiting: No Pain level: 2 Mental status: Baseline
--- NOTE | 2021-10-05 10:02 | PM.PN ---
Subjective Subjective: Interval history: SUBJECTIVE: Ms. Lee states that she is doing well. She is just hungry and wants to know when she can eat. Denies any problems with magnesium sulfate. She denies shortness of breath, chest pain, nausea, vomiting, visual changes. Just reports soreness in her vulva. She has a Bass catheter and SCDs in place. She denies nausea, vomiting and has been on ice chips. She is formula feeding the baby without any difficulty. Has no other questions or concerns today OBJECTIVE/PHYSICAL EXAM: Gen.: No acute distress Heart: S1-S2 heard, regular rate and rhythm Lungs: Clear to auscultation bilaterally Abdomen: Soft, fundus firm below umbilicus, Legs: No calf tenderness, +1 to +2 pitting pedal edema. ASSESSMENT AND PLAN: 20-year-old 1 para 1 status post vaginal delivery on 10/04/2021- day #1 -Severe preeclampsia on magnesium sulfate-normotensive on magnesium sulfate-magnesium levels are in the therapeutic range-plan to continue magnesium sulfate until at least 24 hours and then reassess if adequate diuresis. Adequate urine output for now. -Hypokalemia-40 mEq of K-Dur twice daily in the discharge -Iysjdv-mczb-ln intervention at this time other than vitamins-vital signs stable -Epuusd-lqodoedioswz-lf intervention -If adequate diuresis after 24 hours patient may ambulate, discontinue magnesium sulfate and Bass catheter and IV fluids Vitals/I&O/Wt Last Vital Signs Temp 98.7 F 10/05/21 06:02 Pulse 90 10/05/21 09:26 Resp 18 10/04/21 18:33 BP 133/76 10/05/21 09:26 Pulse Ox 97 10/03/21 17:38 10/04/21 10/05/21 10/05/21 22:59 06:59 14:59 Intake Total 745.683 / 2497.850 500 / 2997.850 Output Total 1630 / 3660 1575 / 5235 600 / 600 Balance -884.317 / -1162.150 -1075 / -2237.150 -600 / -600 Physical Exam Urinary Catheter Management^: Bass Latex: Cath Placed During This Visit: yes, but has since been removed by the nurse Reason for Continuing Indwelling Catheter: Accurate Measurement of Urinary Output in Critically Ill Patients Urinary Catheter Date of Insertion: 10/04/21 Urinary Catheter Time of Insertion: 17:30 Date Urinary Catheter Removed: 10/04/21 Time Urinary Catheter Discontinued: 15:30 Bass: Cath Placed During This Visit: yes Reason for Continuing Indwelling Catheter: Accurate Measurement of Urinary Output in Critically Ill Patients Urinary Catheter Date of Insertion: 10/04/21 Urinary Catheter Time of Insertion: 17:30 Data : 10/05/21 06:30 10/05/21 06:30 Attestations Medical Necessity Statement*: Patient needs to stay 1-2 more midnights to recover from preeclampsia and delivery Coding Level of Care Code Acute Levee Superintendent for Clement Anthony
[2021-10-05 12:36] LABS: Magnesium Level (OB Only) 5.6 mg/dL (5.0-7.5)
[2021-10-05] MEDS: potassium chloride ER 10 mEq Tablet 40 MEQ PO (20:44)
--- NOTE | 2021-10-05 22:29 | PC.NURSE ---
2030 PT AMBULATED 2 LAPS AROUND UNIT 2100 PT SHOWERED 2200 PT AMBULATED 2 LAPS AROUND UNIT
[2021-10-06] VITALS (15 sets, daily range): BP systolic 133–200; BP diastolic 74–98; PULSE 72–89; RESP 18; TEMP 36.3–37.1
[2021-10-06] MEDS: HYDROcodone-acetaminophen 5-325 mg Tablet PO ×2 (02:15→08:30)
[2021-10-06] MEDS: benzocaine-menthol 78 gm Canister 1 SPRAY TOPICAL (04:46)
[2021-10-06 05:15] LABS: Basophils % 0.2 %; Eosinophils # 0.1 10^3/uL (0.0-0.8); Eosinophils % 1.1 %; Hematocrit 27.5 % (37.0-47.0); Hemoglobin 8.9 g/dL (11.5-15.3); Lymphocytes # 1.6 10^3/uL (1.5-6.5); Lymphocytes % 15.1 %; Mean Corpuscular HGB Conc 32.4 g/dL (30.0-36.0); Mean Corpuscular Hemoglobin 30.7 pg (28.0-34.0); Mean Corpuscular Volume 94.8 fl (81-99); Mean Platelet Volume 9.9 fL (7.4-10.4); Monocytes # 0.8 10^3/uL (0.2-0.9); Monocytes % 7.2 %; Neutrophils # 8.16 10^3/uL (1.8-8.0); Neutrophils % 75.6 %; Nucleated Red Blood Cells % 0 %; Platelet Count 213 10^3/cmm (130-400); Red Cell Distribution Width 13.4 % (12.1-15.1); White Blood Count 10.8 10^3/uL (4.5-13.0)
[2021-10-06 05:42] LABS: Potassium 3.7 mmol/L (3.5-5.1)
[2021-10-06] MEDS: prenatal vitamin Capsule 1 CAP PO (08:30)
[2021-10-06] MEDS: ibuprofen 800 mg tablet PO ×2 (08:30→14:46)
[2021-10-06] MEDS: docusate sodium 100 mg Capsule PO (08:30)
[2021-10-06] MEDS: potassium chloride ER 10 mEq Tablet 40 MEQ PO (09:57)
--- NOTE | 2021-10-06 12:32 | PM.OBGYDC ---
Discharge Providers MOLD YARD WORKER Date of Admission: 10/02/21 12:46 Date of Discharge: 10/06/21 Attending Provider at Admission: Bella Newman MD Attending Provider at Discharge: Janeth caraballo PRE-DELIVERY DIAGNOSIS: 20-year-old 1 para 0 at 37 weeks and 3 days gestation Severe preeclampsia at term on magnesium sulfate Morbid obesity with a BMI of 45 GBS positive-on ampicillin Anemia on iron Chlamydia status post treatment with negative test of cure Anxiety and depression no medication Mild asthma POST-DELIVERY DIAGNOSIS: Vaginal delivery on 10/04/2021 Severe preeclampsia on magnesium sulfate PROCEDURE: Vaginal delivery on 10/04/2021 ANESTHESIA: Epidural anesthesia, 2% lidocaine DELIVERING PHYSICIAN: Janeth Caraballo FACOG PRE-DELIVERY COURSE: Ms. Lee is a 20-year-old 1 para 0 at 37 weeks and 3 days who was diagnosed with severe preeclampsia based on an elevated blood pressure, increased swelling and a protein creatinine ratio of 0.55 . She was sent to labor and delivery for induction of labor as she was already 37 weeks. was complicated by morbid obesity and excessive weight gain of over 60 pounds, chlamydia infection which was treated with negative test of cure at 36 weeks, GBS positive, anemia on iron and mild asthma with occasional albuterol use. ----> On presentation to labor and delivery on October 02, 2021 her cervix was closed thick and high and she had a category 1 tracing. She was noted to have severe blood pressure elevations and was started on magnesium sulfate. Her blood pressures remained largely normotensive with occasional elevations in no elevations in the severe range after being started on magnesium sulfate. She was also started on antibiotics for GBS prophylaxis. She had no other preeclamptic symptoms. Induction was started with Cytotec x4 which was placed at 11 AM, 3 PM, 7 PM and 11 PM. At 3 AM on October 03, 2021 she had made minimal cervical change to fingertip and 50% effaced. During this time she was uncomfortable and epidural was placed. Throughout her labor once magnesium was started she had SCDs on to decrease her risk of DVTs. She was aissatou irregularly after this and was allowed to eat and rest after which she was started on Pitocin at 8:30 a.m. on 10/02/2021. She was continued on Pitocin till 7:30 PM and reached a maximum of 20 mIU. This part of her labor managed by Dr. Newman and then I came on at 5 PM on October 03, 2021. She was noted to have a low potassium and this was replaced with K-Dur and magnesium was found to be better therapeutic levels and was increased to 2.5 mg an hour and with this medication levels were therapeutic. Patient had a regular contractions and on examination was 1 cm 50% and -3 cm to -4 station. Pitocin was turned off and she was given a meal and allowed therapeutic rest and Pitocin was restarted at midnight on October 04, 2021. It was titrated to a maximum of 15 mIU. With this she started to have more regular contractions she had spontaneous rupture of membranes at 7:49 AM on October 04, 2021 at which time she was wanted to 70% and -2 station. Fluid was clear. She started to make cervical change after this and was 3 to 4 cm 90% and -2 station at 10 AM. She was 6 to 7 cm at 1 PM 8 cm at 2 PM and fully dilated at 3 PM. Up until this point tracing was category 1 with regular contractions. She did have a 4-minute deceleration when she was fully dilated as she was throwing up but tracing recovered well after this and remained category 1 for the remainder of her labor and delivery. DELIVERY NOTE: She was set up in lithotomy position and was pushing effectively. She was noted to be +3 station and continued pushing well. The head delivered in LISET position, no nuchal cord was present. The shoulders and rest of the body followed with her next push. The baby's mouth and nose were suctioned and the baby was placed on the mother's belly. Once cord pulsations stopped the cord was clamped and cut and the baby handed to waiting fiberglass dowel drawing operator Dr. Dumont. The umbilical cord broke on trying to deliver the placenta and the remainder of the placenta was delivered manually without any difficulty -- intact with membranes and was discarded. The fundus was noted to be firm and well contracted and manual exploration revealed no abnormalities. The vagina and cervix were inspected and no cervical or sulcal lacerations were noted. The perineum was noted to be intact except for second-degree tear which was repaired. With a 3-0 Vicryl on a CT1 without any difficulty. Good reapproximation and hemostasis was achieved. Baby girl Montserratnie born at 5:01 PM on 10/04/2021 with 8/9, weighing 7 pounds 7 ounces, 3380 g, 20-3/4 inches long. Placenta was delivered manually and was intact with membranes and cord. Cotyledons were intact , inserted umbilical cord with 3 vessels noted. Estimated blood loss 300 mL. Complications-none, both baby and mother were left to recover in a stable condition. Mother will be receiving magnesium sulfate for 24 hours with severe preeclampsia for seizure prophylaxis HOSPITAL COURSE: She underwent an uncomplicated vaginal delivery on 10/04/2021. She did well on day 0 and and was on magnesium sulfate for 24 hours for seizure prophylaxis during which she had adequate urine output and was diuresing well. Blood pressures remained largely normotensive and she did not require any antihypertensive medication. SCDs were placed for DVT prophylaxis while she was in bed. After 24 hours magnesium sulfate was stopped and she ambulated without any difficulty and was tolerating regular diet without nausea or vomiting. She was formula feeding without difficulty and bonding well with her daughter. Pain was well-controlled with by mouth pain medication. She denied nausea, vomiting, fever, chills, shortness of breath, leg pain. She had moderate vaginal bleeding. On day # 2 she continued to do well with stable vital signs and stable hemoglobin at 8.9. Vital signs were overall normal with occasional mild blood pressure elevations without any severe elevations for most of the day however just prior to her scheduled discharge she did have a severe elevation. Decision was made to start her on labetalol 200 mg twice daily and with this her blood pressure was overall normal. Options to stay overnight versus going home later that day was discussed with patient and given that she had a long induction was started in the hospital she chose to go home. She was discharged home on day 2 in a stable condition. Warning signs for endometritis, mastitis, DVT/PE were reviewed with her. Post delivery activity restrictions were also reviewed with her at all her questions were answered to her satisfaction. Plans on using the patch for contraception . She will monitor her blood pressures for 1 week twice daily and will follow up at that time to reassess blood pressures. She will also follow-up for a weight check and blood pressure check on 10/10/2021. ER precautions were reviewed EXAM AT DISCHARGE: Gen.: No acute distress Heart: S1-S2 heard, regular rate and rhythm Lungs: Clear to auscultation bilaterally Abdomen: Soft, fundus firm below umbilicus Legs: No calf tenderness, +1 to +2 pitting bilateral pedal edema. CONDITION AT DISCHARGE: Stable This documentation was created by [employer] kiln head house operator software (known for inherent kiln head house operator error). Every effort was made to assure accuracy of kiln head house operator. Any obvious errors or omissions should be clarified with the author of the document. Diagnoses at Discharge Discharge Diagnosis (1) Severe preeclampsia: Status: Acute (2) GBS (group B Streptococcus carrier), +RV culture, currently : Status: Acute (3) Obesity affecting : Status: Acute (4) Anemia affecting in third trimester: Status: Acute Reason for Visit Reason for Visit: INDUCTION Information Peripartum Data: Delivery Method: Vaginal Physical Exam Urinary Catheter Management^: Bass Latex: Cath Placed During This Visit: yes, but has since been removed by the nurse Reason for Continuing Indwelling Catheter: Accurate Measurement of Urinary Output in Critically Ill Patients Urinary Catheter Date of Insertion: 10/04/21 Urinary Catheter Time of Insertion: 17:30 Date Urinary Catheter Removed: 10/04/21 Time Urinary Catheter Discontinued: 15:30 Bass: Cath Placed During This Visit: yes, but has since been removed by the nurse Reason for Continuing Indwelling Catheter: Decision to DC Catheter Urinary Catheter Date of Insertion: 10/04/21 Urinary Catheter Time of Insertion: 17:30 Date Urinary Catheter Removed: 10/05/21 Time Urinary Catheter Discontinued: 18:20 History History History 1 Term 1 Miscarriages/Ectopic 0 0 Living Children 1 Other History: X 1 1---> 10/04/2021--vaginal delivery at 37 weeks and 5 days--induction of labor for severe preeclampsia. Baby girl (Ashok Penaloza )weighing [address] Caraballo at [facility] [place] Discharge Data Data Completed and Pending: Labs from last 24 hours 10/06/21 10/06/21 10/05/21 05:06 05:06 11:45 WBC 10.8 RBC 2.90 L Hgb 8.9 L Hct 27.5 L MCV 94.8 MCH 30.7 MCHC 32.4 RDW 13.4 Plt Count 213 MPV 9.9 Neut % (Auto) 75.6 Lymph % (Auto) 15.1 [place] % (Auto) 7.2 Eos % (Auto) 1.1 Baso % (Auto) 0.2 Neut # (Auto) 8.16 H Lymph # (Auto) 1.6 [place] # (Auto) 0.8 Eos # (Auto) 0.1 Baso # (Auto) 0.0 Nucleated RBC % (a uto) 0 Nucleated RBCs # 0.0 Potassium 3.7 Magnesium 5.6 Vitals: Last Vital Signs Temp 98.3 F 10/06/21 10:07 Pulse 72 10/06/21 11:53 Resp 18 10/06/21 10:07 BP 137/77 10/06/21 11:53 Pulse Ox 97 10/03/21 17:38 Discharge Plan Discharge Patient Disposition: Home Condition: Stable Prescriptions: New docusate sodium 100 mg Capsule 100 mg PO BID PRN (Reason: constipation) Qty: 30 RF: 0 ibuprofen 800 mg tablet 800 mg PO Q8H Qty: 30 RF: 0 hydrocodone-acetaminophen 5-325 mg tablet 1 tab PO Q6H Qty: 10 RF: 0 Continued albuterol sulfate [Ventolin HFA] 90 mcg/actuation HFA aerosol inhaler 2 puff inhalation Q6H PRN (Reason: asthma) RF: 0 ferrous sulfate 325 mg (65 mg iron) tablet,delayed release (DR/EC) 325 mg PO BID Qty: 90 RF: 1 PNV cmb#95-ferrous fumarate-FA [ Multivitamins] 28 mg iron- 800 mcg Tablet 2 tab PO DAILY RF: 0 Discharge Orders: Discharge Order (Routine); Ordered 10/06/21 Ordered By: Janeth Blake Referrals: Janeth Blake MD [Physician] - 11/17/21 2:45 pm (Please call [facility] thing tomorrow, 10/07/21, to schedule a one week follow-up appointment with Dr. Caraballo for a blood pressure check. Your 6 week post- visit is scheduled for 11/17/21 @2:45. ) Patient Instructions: Labetalol (By mouth), Hydrocodone/Acetaminophen (By mouth), Ibuprofen (By mouth), Laxative, Stimulant Combination (By mouth), Depression (DC), How to Take a Blood Pressure (DC), Bleeding (DC), Preeclampsia and Eclampsia After Delivery (GEN), OB Discharge Report, OB Food/Drug Interaction Guide, Opioid Safety, OB Home Care, OB Vaginal Deliveries - [facility] Activity Restrictions/Additional Instructions: Pelvic rest for 6 weeks, no heavy lifting for 6 weeks, monitor blood pressures 2 times a day and bring in blood pressure log to visit-blood pressure visit in 1 week and 6-week visit Discharge Attestations MOLD YARD WORKER Time Spent in Discharge Care*: greater than 30 min Coding Level of Care Code Acute Dampener Operator for Chg Fwd Diagnoses Severe preeclampsia O14.10 GBS (group B Streptococcus carrier), +RV culture, currently O99.820 Obesity affecting O99.210 Anemia affecting in third trimester O99.013
[2021-10-06] MEDS: labetalol 200 mg Tablet PO (16:09)
--- NOTE | 2021-10-06 18:11 | PC.NURSE ---
Received verbal order from Dr. Brennan to call in Labetalol 200 mg PO BID for 2 weeks no refill, to [facility] in [place]. Prescription called in at 181.
== END 2021-10-06 19:25 | disposition home or self-care (01) | DRG 806 ==
LOC: OPOB 12:46 → OBGYN 12:46
PROVIDERS: Obstetrics & Gynecology; Admitting Provider Obstetrics & Gynecology; Visit Provider Obstetrics & Gynecology
DX: O14.14 Severe pre-eclampsia complicating childbirth (principal); O98.82 Other maternal infectious and parasitic diseases complicating childbirth; Z37.0 Single live birth; F41.8 Other specified anxiety disorders; O99.824 Streptococcus B carrier state complicating childbirth; O99.02 Anemia complicating childbirth; D50.9 Iron deficiency anemia, unspecified; O99.214 Obesity complicating childbirth; E66.01 Morbid (severe) obesity due to excess calories; O70.1 Second degree perineal laceration during delivery; Z3A.37 37 weeks gestation of pregnancy; O75.89 Other specified complications of labor and delivery; J45.20 Mild intermittent asthma, uncomplicated; Z87.891 Personal history of nicotine dependence; O99.344 Other mental disorders complicating childbirth
CPT/HCPCS: 36415; 51702; 59025; 59409; 80053; 83735; 84112; 84132; 84550; 85025; 85027; 87635; J0290; J2405; J2795; J3010; J3475; J3490

== ENCOUNTER 2021-10-07 14:22 | Emergency (ER) | payer BC, MEDICAID, SELFPAY ==
[2021-10-07 14:40] VITALS: BP 178/112; PULSE 81; RESP 18; TEMP 36.7; O2SAT 97; BMI 45.8
[2021-10-07 16:27] VITALS: BP 193/106; PULSE 75; RESP 18; O2SAT 97
[2021-10-07 17:46] LABS: Basophils % 0.4 %; Eosinophils # 0.3 10^3/uL (0.0-0.8); Eosinophils % 2.6 %; Hematocrit 29.4 % (37.0-47.0); Hemoglobin 9.5 g/dL (11.5-15.3); Lymphocytes # 1.7 10^3/uL (1.5-6.5); Mean Corpuscular HGB Conc 32.3 g/dL (30.0-36.0); Mean Corpuscular Hemoglobin 30.4 pg (28.0-34.0); Mean Corpuscular Volume 94.2 fl (81-99); Mean Platelet Volume 10.1 fL (7.4-10.4); Monocytes # 0.7 10^3/uL (0.2-0.9); Monocytes % 6.3 %; Neutrophils # 7.74 10^3/uL (1.8-8.0); Neutrophils % 73.7 %; Nucleated Red Blood Cells % 0 %; Platelet Count 278 10^3/cmm (130-400); Red Blood Count 3.12 10^6/uL (4.1-5.3); Red Cell Distribution Width 13.2 % (12.1-15.1); White Blood Count 10.5 10^3/uL (4.5-13.0)
[2021-10-07 18:08] LABS: Alanine Aminotransferase 14 U/L (0-33); Albumin Level 3.2 g/dL (3.5-5.2); Alkaline Phosphatase 125 IU/L (35-105); Aspartate Amino Transferase 24 U/L (0-32); Blood Urea Nitrogen 7 mg/dL (6-20); Calcium 7.7 mg/dL (8.5-10.5); Carbon Dioxide 19 mmol/L (22-29); Chloride 104 mmol/L (98-107); Globulin 2.3 g/dL (1.3-4.6); Glomerular Filtration Rate 203.5 mL/min (90-130); Glucose 61 mg/dL (65-115); Osmolality Calculated 282 mOsm/kg (285-295); Sodium 138 mmol/L (136-145); Total Bilirubin 0.2 mg/dL (0.15-1.2); Total Protein 5.5 g/dL (6.6-8.7)
[2021-10-07 18:43] LABS: Add Urine Microscopic? YES; Bilirubin Urine Neg (Negative); Blood Urine 3+ (Negative); Glucose Urine UA Norm (Normal); Ketones Urine Negative (Negative); Leukocyte Esterase Urine 2+ (Negative); Nitrate Urine Negative (Negative); Protein Urine Trace (Negative); Specific Gravity, Urine 1.005 (1.005-1.030); Sulfosalicylic Acid Urine Negative (Negative); Urine Appearance Cloudy (CLEAR); Urine Color Red (Yellow); Urobilinogen Urine Norm (Negative); pH Urine 8 (5-7)
[2021-10-07 18:44] LABS: RBC Urine 40-50 /hpf (0-2); Transitional Epi Cells Urine 0-4 /hpf; WBC Urine 25-40 /hpf (0-5)
[2021-10-07 18:45] LABS: Add Urine Culture? Yes; Bacteria Urine 1+ /hpf
== END 2021-10-07 19:58 | disposition left against medical advice (07) ==
LOC: ER 14:29
PROVIDERS: Physician Assistant; Emergency Provider Family Medicine
DX: Z53.21 Procedure and treatment not carried out due to patient leaving prior to being seen by health care provider (principal)
CPT/HCPCS: 80053; 81001; 85025; 87086

== ENCOUNTER 2021-10-08 11:31 | Emergency (ER) | payer OTHER, BC, MEDICAID, SELFPAY ==
[2021-10-08 12:02] VITALS: BP 166/103; PULSE 81; RESP 18; TEMP 36.7; O2SAT 95; BMI 43.4
--- NOTE | 2021-10-08 13:20 | XRR_ITS ---
PROCEDURE INFORMATION: Exam: XR Chest Exam date and time: 10/08/2021 1:20 PM Age: 20 years old Clinical indication: Shortness of breath; Additional info: SOB TECHNIQUE: Imaging protocol: XR of the chest. Views: 1 view. COMPARISON: CR XR chest 1V portable [id number] 08/07/2021 5:43 PM FINDINGS: Lungs: Unremarkable. No consolidation. Pleural spaces: Unremarkable. No pleural effusion. No pneumothorax. Heart/Mediastinum: Unremarkable. No cardiomegaly. Bones/joints: Unremarkable. XR/XR chest 1V portable [id number] IMPRESSION: No acute findings.
[2021-10-08 14:46] LABS: Basophils % 0.4 %; Eosinophils # 0.2 10^3/uL (0.0-0.8); Eosinophils % 1.9 %; Hematocrit 30.7 % (37.0-47.0); Lymphocytes # 1.2 10^3/uL (1.5-6.5); Lymphocytes % 10.9 %; Mean Corpuscular HGB Conc 32.6 g/dL (30.0-36.0); Mean Corpuscular Hemoglobin 30.3 pg (28.0-34.0); Mean Platelet Volume 9.5 fL (7.4-10.4); Monocytes # 0.6 10^3/uL (0.2-0.9); Monocytes % 5.2 %; Neutrophils # 8.66 10^3/uL (1.8-8.0); Neutrophils % 80.4 %; Nucleated Red Blood Cells % 0 %; Platelet Count 326 10^3/cmm (130-400); Red Cell Distribution Width 12.9 % (12.1-15.1); White Blood Count 10.8 10^3/uL (4.5-13.0)
[2021-10-08 15:04] LABS: Alanine Aminotransferase 16 U/L (0-33); Albumin Level 3.3 g/dL (3.5-5.2); Alkaline Phosphatase 124 IU/L (35-105); Anion Gap 17.6 (5-19); Aspartate Amino Transferase 18 U/L (0-32); Blood Urea Nitrogen 7 mg/dL (6-20); Carbon Dioxide 18 mmol/L (22-29); Chloride 105 mmol/L (98-107); Globulin 2.7 g/dL (1.3-4.6); Glomerular Filtration Rate 203.5 mL/min (90-130); Glucose 90 mg/dL (65-115); Osmolality Calculated 282 mOsm/kg (285-295); Potassium 3.6 mmol/L (3.5-5.1); Sodium 137 mmol/L (136-145); Total Bilirubin 0.2 mg/dL (0.15-1.2)
--- NOTE | 2021-10-08 16:08 | CTR_ITS ---
PROCEDURE INFORMATION: Exam: CTA Chest With Contrast Exam date and time: 10/08/2021 4:08 PM Age: 20 years old Clinical indication: Shortness of breath; Additional info: SOB following delivery; Low o2 at [facility] TECHNIQUE: Imaging protocol: Computed tomographic angiography of the chest with contrast. 3D rendering (Not supervised by radiologist): MIP and/or 3D reconstructed images were created by the technologist. Radiation optimization: All CT scans at this facility use at least one of these dose optimization techniques: automated exposure control; mA and/or kV adjustment per patient size (includes targeted exams where dose is matched to clinical indication); or iterative reconstruction. Contrast material: OMNI 350; Contrast volume: 82 ml; Contrast route: INTRAVENOUS (IV); COMPARISON: CR XR chest 1V portable [id number] 10/08/2021 1:36 PM RADIATION DOSE METRICS: Total DLP (mGy-cm): 583.17 FINDINGS: Pulmonary arteries: Normal. No pulmonary emboli. Aorta: Unremarkable. No aortic aneurysm. No aortic dissection. Lungs: Unremarkable. No consolidation. No masses. Pleural spaces: Unremarkable. No pneumothorax. Lateral small bilateral pleural effusion. Heart: Negative for evidence of right heart strain. No cardiomegaly. No pericardial effusion. Lymph nodes: Unremarkable. No enlarged lymph nodes. Bones/joints: Unremarkable. No acute fracture. Soft tissues: There is a large benign cyst appearing cyst in the anterior superior aspect of the liver it measures 6.8 cm x 7.6 cm x [address]/CT angio chest PE protcl [id number] IMPRESSION: 1. Negative for pulmonary embolism. 2. Negative for right heart strain. 3. Large benign hepatic cyst 4. Bilateral pleural effusions
--- NOTE | 2021-10-08 16:35 | W.ED.SOB ---
Documented by User: RIP Redd 10/08/21 17:02 HPI - SOB/Dyspnea General: Chief Complaint: Shortness of Breath/Dyspnea Stated Complaint: POSS BLOOD IN LUNG Time Seen by Provider: 10/08/21 16:21 Source: patient Mode of arrival: ambulatory Limitations: no limitations History of Present Illness: HPI Narrative: Patient is a nice 20-year-old female who presents to ED today with a complaint of shortness of breath. Patient states she had a vaginal delivery 4 days ago. She states she was preeclamptic and on magnesium sulfate stuck in bed for 3 days. She was told this could make her prone to developing a blood clot. Patient states she has continued to have high blood pressure following the delivery. She states she did not have any shortness of breath following delivery or upon discharge but states yesterday she began feeling winded easily. Patient states she went to the [facility] and states that the nursing staff spoke to Dr. Brennan who recommended she come to the ED for evaluation/rule out PE (they had taken O2 and it was reportedly 91%). Patient denies chest pain. She does have a little back pain from her epidural. She notes bilateral lower extremity edema from that she states has not improved much. No calf pain or leg redness. MD elicited complaint: shortness of breath Onset (ago): day(s) (yesterday) Context: other (recent vaginal delivery, pre-eclampsia) Timing: constant Severity: moderate Exacerbating factors: exertion Relieving factors: nothing Associated symptoms: Deny abdominal pain, chest congestion, chest pain, extremity pain, fever(s), hemoptysis, lightheadedness, nausea, palpitations, syncope or vomiting Review of Systems Const: Denies: fever(s), chills, body aches, fatigue or malaise Card: Reports: dyspnea on exertion; Denies: chest pain, palpitations, irregular heart rhythm, lightheadedness, syncope or pre-syncope Resp: Reports: dyspnea; Denies: productive cough, non-productive cough, wheezing, hemoptysis or chest congestion GI: Denies: abdominal pain, nausea, vomiting or diarrhea : Denies: flank pain Musc: Denies: extremity pain, joint swelling, joint redness or joint warmth Skin/Breast: Denies: rash Neuro: Denies: headache(s), numbness in extremities, weakness in extremities or sensory changes FOR[facility]LY [facility] ED PFSH: Medical History Anxiety and depression Diagnosed as a teenager---on citalopram and stopped upon finding she was . Restarted in the second trimester and doing well Asthma Mild intermittent-diagnosed as a child. Uses her inhaler two or three times a year-last use was in 2019 No pertinent past medical history Denies diabetes, hypertension, seizures, DVT/PE PCP: ENRIQUE Avalos Surgical History Hx of knee surgery (~2016) 2017---left knee surgery arthroscopically for a torn cartilage Family History Grandmother Heart disease Maternal and Paternal Grandfather Heart disease Paternal and Maternal Hypercholesteremia Maternal Hypertension Maternal Stroke Maternal Denies family history of Colon cancer Ovarian cancer Diabetes Breast cancer Uterine cancer Thyroid condition Female Reproductive History: Date of last menstrual period: 01/13/21 Physical Exam Const: COMMON NORMALS: no acute distress, patient oriented x3, no limitations and alert GENERAL APPEARANCE: cooperative NUTRITIONAL APPEARANCE: obese ORIENTATION/CONSCIOUSNESS: Yes awake, Yes oriented to person, Yes oriented to place and Yes oriented to time HENMT: COMMON NORMALS: normocephalic and atraumatic HEAD & SCALP: normocephalic and atraumatic Resp: COMMON NORMALS: normal respiratory effort and clear to auscultation bilaterally AUSCULTATION: clear to auscultation bilaterally Cardio: COMMON NORMALS: regular rate and regular rhythm RATE: regular rate RHYTHM: regular rhythm Extremity: NARRATIVE EXTREMITY EXAM: bilateral LE equal edema; no erythema/negative Russell's Neuro: COMMON NORMALS: patient oriented x3 SENSORIUM/ORIENTATION: Yes alert, Yes oriented to person, Yes oriented to place and Yes oriented to time Course Vital Signs: Vital signs: Vital Signs Temperature 98.0 F 10/08/21 12:02 Pulse Rate 70 10/08/21 17:10 Respiratory Rate 18 10/08/21 17:10 Blood Pressure 167/116 10/08/21 17:10 Pulse Oximetry 96 10/08/21 17:10 MDM - SOB/Dyspnea Lab Data: Labs: Lab Results 10/08/21 10/08/21 14:36 14:36 WBC 10.8 10^3/uL 10^3 /uL (4.5-13.0) RBC 3.30 10^6/uL L 10 ^6/uL (4.1-5.3) Hgb 10.0 g/dL L g/dL (11.5-15.3) Hct 30.7 % L % (37.0-47.0) MCV 93.0 fl fl (81-99) MCH 30.3 pg pg (28.0-34.0) MCHC 32.6 g/dL g/dL (30.0-36.0) RDW 12.9 % % (12.1-15.1) Plt Count 326 10^3/cmm 10^3 /cmm (130-400) MPV 9.5 fL fL (7.4-10.4) Neut % (Auto) 80.4 % % Lymph % (Auto) 10.9 % % [place] % (Auto) 5.2 % % Eos % (Auto) 1.9 % % Baso % (Auto) 0.4 % % Neut # (Auto) 8.66 10^3/uL H 10 ^3/uL (1.8-8.0) Lymph # (Auto) 1.2 10^3/uL L 10^ 3/uL (1.5-6.5) [place] # (Auto) 0.6 10^3/uL 10^3/ uL (0.2-0.9) Eos # (Auto) 0.2 10^3/uL 10^3/ uL (0.0-0.8) Baso # (Auto) 0.0 10^3/uL 10^3/ uL (0.0-0.1) Nucleated RBC % (a uto) 0 % % Nucleated RBCs # 0.0 /100WBC /100W BC Sodium 137 mmol/L mmol/L (136-145) Potassium 3.6 mmol/L mmol/L (3.5-5.1) Chloride 105 mmol/L mmol/L (98-107) Carbon Dioxide 18 mmol/L L mmol/ L (22-29) Anion Gap 17.6 (5-19) BUN 7 mg/dL mg/dL (6-20) Creatinine 0.4 mg/dL L mg/dL (0.5-0.9) GFR Calculation 203.5 mL/min H mL /min (90-130) Glucose 90 mg/dL mg/dL (65-115) Calculated Osmolal ity 282 mOsm/kg L mOs m/kg (285-295) Calcium 8.0 mg/dL L mg/dL (8.5-10.5) Total Bilirubin 0.2 mg/dL mg/dL (0.15-1.2) AST 18 U/L U/L (0-32) ALT 16 U/L U/L (0-33) Alkaline Phosphata se 124 IU/L H IU/L (35-105) Total Protein 6.0 g/dL L g/dL (6.6-8.7) Albumin 3.3 g/dL L g/dL (3.5-5.2) Globulin 2.7 g/dL g/dL (1.3-4.6) Discharge Plan Discharge Patient Disposition: Home Clinical Impression: Hypertension, uncontrolled Condition: Stable Prescriptions: New hydrochlorothiazide 25 mg tablet 25 mg PO QAM Qty: 30 RF: 0 No Action albuterol sulfate [Ventolin HFA] 90 mcg/actuation HFA aerosol inhaler 2 puff inhalation Q6H PRN (Reason: asthma) RF: 0 ferrous sulfate 325 mg (65 mg iron) tablet,delayed release (DR/EC) 325 mg PO BID Qty: 90 RF: 1 docusate sodium 100 mg Capsule 100 mg PO BID PRN (Reason: constipation) Qty: 30 RF: 0 ibuprofen 800 mg tablet 800 mg PO Q8H Qty: 30 RF: 0 hydrocodone-acetaminophen 5-325 mg tablet 1 tab PO Q6H Qty: 10 RF: 0 PNV cmb#95-ferrous fumarate-FA [ Multivitamins] 28 mg iron- 800 mcg Tablet 2 tab PO DAILY RF: 0 Discharge Orders: Discharge ED (Routine); Ordered 10/08/21 Ordered By: Fred Wright Discharge Diet: Usual diet Discharge Activity: Increase activity as tolerated Patient Instructions: Hypertension During (ED), Opioid Safety Activity Restrictions/Additional Instructions: Home and rest. Take medications as directed. Follow-up with primary care in 2 to 3 days for recheck of blood pressure. Return to the ER for high fever, worsening chest pain, or new concerns. Sign Out Sign Out Data: Patient Sign Out occurred on 10/08/21 at 17:08. Patient's care was discussed, and care was transferred from to Fred Wright. Post-Handoff Eval: Patient came in today for some complaints of chest discomfort and concern for possible PE. Patient is 4 to 5-day with a history of eclampsia. Patient since having the baby has continued to have problems with her blood pressure. Patient had some chest discomfort today where yesterday she did not. On exam patient appears well. Patient appears no acute distress. Patient does have bilateral lower extremity edema. Blood pressure is at 166 systolic. Differential diagnosis includes but not limited to PE, uncontrolled hypertension, eclampsia. Laboratory values were unremarkable. CTA of the chest indicated no PE, but did show some small pleural effusion bilaterally. We will start the patient on a diuretic give her 1 dose of hydrochlorothiazide 25 mg in the ER tonight. Patient will then continue daily. This will help that with better control of patient's blood pressure she will continue labetalol. Coding Level of Care Code ED Director Of Procurement for Chg Fwd Exam Expanded Problem Focused Documented by User: ENRIQUE Matthews 10/08/21 17:27 HPI - SOB/Dyspnea General: Chief Complaint: Shortness of Breath/Dyspnea Stated Complaint: POSS BLOOD IN LUNG Time Seen by Provider: 10/08/21 16:21 [facility]LY [facility] ED PFSH: Medical History Anxiety and depression Diagnosed as a teenager---on citalopram and stopped upon finding she was . Restarted in the second trimester and doing well Asthma Mild intermittent-diagnosed as a child. Uses her inhaler two or three times a year-last use was in 2019 No pertinent past medical history Denies diabetes, hypertension, seizures, DVT/PE PCP: ENRIQUE Avalos Surgical History Hx of knee surgery (~2017) 2017---left knee surgery arthroscopically for a torn cartilage Family History Grandmother Heart disease Maternal and Paternal Grandfather Heart disease Paternal and Maternal Hypercholesteremia Maternal Hypertension Maternal Stroke Maternal Denies family history of Colon cancer Ovarian cancer Diabetes Breast cancer Uterine cancer Thyroid condition Course Vital Signs: Vital signs: Vital Signs Temperature 98.0 F 10/08/21 12:02 Pulse Rate 70 10/08/21 17:10 Respiratory Rate 18 10/08/21 17:10 Blood Pressure 167/116 10/08/21 17:10 Pulse Oximetry 96 10/08/21 17:10 MDM - SOB/Dyspnea Lab Data: Labs: Lab Results 10/08/21 10/08/21 14:36 14:36 WBC 10.8 10^3/uL 10^3 /uL (4.5-13.0) RBC 3.30 10^6/uL L 10 ^6/uL (4.1-5.3) Hgb 10.0 g/dL L g/dL (11.5-15.3) Hct 30.7 % L % (37.0-47.0) MCV 93.0 fl fl (81-99) MCH 30.3 pg pg (28.0-34.0) MCHC 32.6 g/dL g/dL (30.0-36.0) RDW 12.9 % % (12.1-15.1) Plt Count 326 10^3/cmm 10^3 /cmm (130-400) MPV 9.5 fL fL (7.4-10.4) Neut % (Auto) 80.4 % % Lymph % (Auto) 10.9 % % [place] % (Auto) 5.2 % % Eos % (Auto) 1.9 % % Baso % (Auto) 0.4 % % Neut # (Auto) 8.66 10^3/uL H 10 ^3/uL (1.8-8.0) Lymph # (Auto) 1.2 10^3/uL L 10^ 3/uL (1.5-6.5) [place] # (Auto) 0.6 10^3/uL 10^3/ uL (0.2-0.9) Eos # (Auto) 0.2 10^3/uL 10^3/ uL (0.0-0.8) Baso # (Auto) 0.0 10^3/uL 10^3/ uL (0.0-0.1) Nucleated RBC % (a uto) 0 % % Nucleated RBCs # 0.0 /100WBC /100W BC Sodium 137 mmol/L mmol/L (136-145) Potassium 3.6 mmol/L mmol/L (3.5-5.1) Chloride 105 mmol/L mmol/L (98-107) Carbon Dioxide 18 mmol/L L mmol/ L (22-29) Anion Gap 17.6 (5-19) BUN 7 mg/dL mg/dL (6-20) Creatinine 0.4 mg/dL L mg/dL (0.5-0.9) GFR Calculation 203.5 mL/min H mL /min (90-130) Glucose 90 mg/dL mg/dL (65-115) Calculated Osmolal ity 282 mOsm/kg L mOs m/kg (285-295) Calcium 8.0 mg/dL L mg/dL (8.5-10.5) Total Bilirubin 0.2 mg/dL mg/dL (0.15-1.2) AST 18 U/L U/L (0-32) ALT 16 U/L U/L (0-33) Alkaline Phosphata se 124 IU/L H IU/L (35-105) Total Protein 6.0 g/dL L g/dL (6.6-8.7) Albumin 3.3 g/dL L g/dL (3.5-5.2) Globulin 2.7 g/dL g/dL (1.3-4.6) Discharge Plan Discharge Patient Disposition: Home Clinical Impression: Hypertension, uncontrolled Condition: Stable Prescriptions: New hydrochlorothiazide 25 mg tablet 25 mg PO QAM Qty: 30 RF: 0 No Action albuterol sulfate [Ventolin HFA] 90 mcg/actuation HFA aerosol inhaler 2 puff inhalation Q6H PRN (Reason: asthma) RF: 0 ferrous sulfate 325 mg (65 mg iron) tablet,delayed release (DR/EC) 325 mg PO BID Qty: 90 RF: 1 docusate sodium 100 mg Capsule 100 mg PO BID PRN (Reason: constipation) Qty: 30 RF: 0 ibuprofen 800 mg tablet 800 mg PO Q8H Qty: 30 RF: 0 hydrocodone-acetaminophen 5-325 mg tablet 1 tab PO Q6H Qty: 10 RF: 0 PNV cmb#95-ferrous fumarate-FA [ Multivitamins] 28 mg iron- 800 mcg Tablet 2 tab PO DAILY RF: 0 Discharge Orders: Discharge ED (Routine); Ordered 10/08/21 Ordered By: Fred Wright Discharge Diet: Usual diet Discharge Activity: Increase activity as tolerated Patient Instructions: Hypertension During (ED), Opioid Safety Activity Restrictions/Additional Instructions: Home and rest. Take medications as directed. Follow-up with primary care in 2 to 3 days for recheck of blood pressure. Return to the ER for high fever, worsening chest pain, or new concerns. Sign Out Sign Out Data: Patient Sign Out occurred on 10/08/21 at 17:08. Patient's care was discussed, and care was transferred from to Fred Wright. Post-Handoff Eval: Patient came in today for some complaints of chest discomfort and concern for possible PE. Patient is 4 to 5-day with a history of eclampsia. Patient since having the baby has continued to have problems with her blood pressure. Patient had some chest discomfort today where yesterday she did not. On exam patient appears well. Patient appears no acute distress. Patient does have bilateral lower extremity edema. Blood pressure is at 166 systolic. Differential diagnosis includes but not limited to PE, uncontrolled hypertension, eclampsia. Laboratory values were unremarkable. CTA of the chest indicated no PE, but did show some small pleural effusion bilaterally. We will start the patient on a diuretic give her 1 dose of hydrochlorothiazide 25 mg in the ER tonight. Patient will then continue daily. This will help that with better control of patient's blood pressure she will continue labetalol. Coding Level of Care Code ED Director Of Procurement for Clement Anthony Exam Expanded Problem Focused
[2021-10-08] MEDS: iohexol 350 mg/mL 100 mL Btl IV (16:51)
[2021-10-08 17:10] VITALS: BP 167/116; PULSE 70; RESP 18; O2SAT 96
[2021-10-08] MEDS: hydroCHLOROthiazide 25 mg Tablet PO (18:15)
[2021-10-08 18:39] VITALS: BP 182/113; PULSE 73; RESP 16; O2SAT 98
== END 2021-10-08 18:16 | disposition home or self-care (01) ==
PROVIDERS: Physician Assistant; Emergency Provider Nurse Practitioner Family
DX: I10 Essential (primary) hypertension (principal)
CPT/HCPCS: 36415; 71045; 71275; 80053; 85025; 99283; Q9967

== ENCOUNTER → 2023-03-10 10:23 | Outpatient (BNVA) | payer BC, MEDICAID, SELFPAY | PROVIDERS: Visit Provider Family Medicine | DX: R10.11 Right upper quadrant pain (principal); F32.1 Major depressive disorder, single episode, moderate; F41.1 Generalized anxiety disorder; F41.0 Panic disorder [episodic paroxysmal anxiety]; J45.20 Mild intermittent asthma, uncomplicated; K76.89 Other specified diseases of liver; Z68.39 Body mass index [BMI] 39.0-39.9, adult | CPT/HCPCS: 80053; 80061; 83036; 84439; 84443; 85025 ==

== ENCOUNTER 2023-03-12 06:09 | Outpatient (CLI) | payer BC, MEDICAID, SELFPAY ==
--- NOTE | 2023-03-12 06:45 | US_ITS ---
WS: [id number] RIGHT UPPER QUADRANT ULTRASOUND HISTORY: liver cyst, GB issues COMPARISON: 01/28/2021 Liver: 13.4 cm in length. Liver is normal size. There is a large simple cyst in the LEFT lobe the jigar er near the falciform ligament as seen on a prior CT. This cyst measures 6.1 x 7.3 x 5.5 cm and stabl e in size since 10/08/2021. No solid component. Portal Vein: Normal hepatopetal flow with monophasic waveform. Gallbladder: Normally distended gallbladder with no stones or wall thickening. CBD: 0.5 cm Pancreas: Partially obscured. Body is normal. Right kidney: 10.9 cm in length. Normal size and echogenicity. No hydronephrosis or mass. Aorta and IVC: Unremarkable abdominal aorta and IVC. No ascites. US/US liver [id number] IMPRESSION: 1. Patient has a known large hepatic cyst which is unchanged since 2020, measu ring 6.1 x 7.3 x 5.5 cm. 2. Normal gallbladder.
== END 2023-03-12 06:10 | disposition home or self-care (01) ==
LOC: RAD 06:20
PROVIDERS: PCP Family Medicine; Visit Provider Family Medicine
DX: K76.89 Other specified diseases of liver (principal); R10.11 Right upper quadrant pain
CPT/HCPCS: 76705

== ENCOUNTER 2024-01-07 11:44 | Emergency (ER) | payer SELFPAY ==
[2024-01-07 11:48] VITALS: BP 139/95; PULSE 95; RESP 16; TEMP 36.8; O2SAT 98
--- NOTE | 2024-01-07 12:11 | PC.PHAR ---
pt states she takes the medications entered ext doesnt show when last filled
--- NOTE | 2024-01-07 12:31 | ED_ITS ---
HPI - Abdominal Pain 2 General: Chief Complaint: Abdominal Pain Stated Complaint: abd pain Time Seen by Provider: 01/07/24 11:56 Source: patient Mode of arrival: ambulatory Limitations: no limitations History of Present Illness: Patient is a nice 23-year-old female who presents to ED today with a complaint of upper abdominal pain intermittently over the past few days. She states over the past 2 to 3 days she has had 2-3 episodes of very sharp pain near her epigastric region with radiation into her right upper quadrant and back. Unknown whether this was affected by eating. She states she has not ate all day today because she is scared to. She states last week she experienced a similar episode as well. She states she does have a family history of gallbladder disease. She is complaining of nausea but has not had any episodes of emesis. Bowel movements have been fairly normal. No fevers. No alcohol or NSAID use. MD elicited complaint: abdominal pain Pertinent past history: none Onset (ago): day(s) Pain Consistency: intermittent Location: Epigastric and RUQ Severity: severe Quality: stabbing and sharp Radiation: RUQ, epigastric and back Exacerbating factors: eating (possibly?) Relieving factors: nothing Associated Symptoms: Reports nausea; Denies change in bowel habits, chills, diarrhea, dysuria, fever(s) and vomiting Related Data: Patient : No Review of Systems 2 Const: Denies: fever(s), chills, body aches, fatigue or malaise Card: Denies: chest pain Resp: Denies: dyspnea GI: Reports: abdominal pain and nausea; Denies: vomiting, diarrhea or change in bowel habits : Denies: flank pain, difficulty voiding, dysuria, urinary frequency, urinary urgency or urinary hesitancy Musc: Reports: back pain (feels like pain radiates into her back); Denies: neck pain, extremity pain, extremity swelling, joint pain or joint swelling Skin/Breast: Denies: rash Neuro: Denies: headache(s), numbness in extremities, weakness in extremities, sensory changes or dizziness PFSH ED 2 PFSH: Medical History Pre-eclampsia, severe, delivered Anemia affecting in third trimester Surgical History Hx of knee surgery (~2017) 2017---left knee surgery arthroscopically for a torn cartilage Family History Grandmother Heart disease Maternal and Paternal Grandfather Heart disease Paternal and Maternal Hypercholesteremia Maternal Hypertension Maternal Stroke Maternal Other Clotting disorder Dementia Denies family history of Colon cancer Ovarian cancer Diabetes Psychiatric illness Chronic kidney disease (CKD) Breast cancer Anesthesia complication Bleeding disorder Lung disease Cancer Uterine cancer Thyroid disease Social History Smoking and tobacco/nicotine status: current every day tobacco/nicotine user e- cigarettes E-Cigarette Details: vaporizer device Substance/Drug Use: never Marital status: Number of children: 1 Current occupational status: unemployed Special osmani needs: No Agree to transfusion: Yes Physical Exam 2 Const: COMMON NORMALS: no acute distress, patient oriented x3, no limitations, alert and well nourished GENERAL APPEARANCE: cooperative NUTRITIONAL APPEARANCE: obese ORIENTATION/CONSCIOUSNESS: Yes awake, Yes oriented to person, Yes oriented to place and Yes oriented to time Eye: COMMON NORMALS: no scleral icterus Neck/C-Spine: GENERAL: Yes normal visual inspection, No anterior neck swelling and No submandibular swelling Resp: COMMON NORMALS: normal respiratory effort and clear to auscultation bilaterally AUSCULTATION: clear to auscultation bilaterally Cardio: COMMON NORMALS: regular rate and regular rhythm RATE: regular rate RHYTHM: regular rhythm GI: COMMON NORMALS: Normal to inspection, nondistended, normoactive bowel sounds present, Soft to palpation and no masses INSPECTION: Yes normal to inspection AUSCULTATION: Yes normoactive bowel sounds PALPATION: Yes Soft to palpation, Yes Tenderness to palpation present (GI) Details: RUQ, No Guarding due to palpation present (GI) and No Rigid due to palpation : COMMON NORMALS: Yes no CVA tenderness BLADDER/KIDNEY EXAM: Yes no CVA tenderness Back/Pelvis: COMMON NORMALS: no CVA tenderness and thoracic and lumbar spine normal to inspection Extremity: GENERAL: Yes normal exam except as noted Neuro: COMMON NORMALS: patient oriented x3 SENSORIUM/ORIENTATION: Yes alert, Yes oriented to person, Yes oriented to place and Yes oriented to time Skin: COMMON NORMALS: no rashes or lesions noted GENERAL SKIN EXAM: no rashes or lesions noted Course 2 Vital Signs: Vital signs: Vital Signs Temperature 98.2 F 01/07/24 11:48 Pulse Rate 95 01/07/24 11:48 Respiratory Rate 16 01/07/24 11:48 Blood Pressure 139/95 01/07/24 11:48 Pulse Oximetry 98 01/07/24 11:48 Oxygen Delivery Me thod Room Air 01/07/24 11:48 MDM - Abdominal Pain Medical Decision Making Patient here with intermittent episodes of right upper quadrant abdominal pain over the past week or so. She arrives in no acute distress with stable vital signs. Blood work she has a normal white count and normal LFTs. Remainder of blood work and UA are unremarkable. Ultrasound showing cholelithiasis without acute cholecystitis. Patient will be referred to general surgery for further evaluation of gallstones/biliary colic. Return to ED precautions given. Lab Data 01/07/24 13:15 01/07/24 13:15 Labs/Radiology: Laboratory Results WBC 4.44 10^3/uL (3.29-11.43) 01/07/24 13:15 RBC 4.17 10^6/uL (3.85-5.65) 01/07/24 13:15 Hgb 12.70 g/dL (11.27-16.99) 01/07/24 13:15 Hct 38.7 % (36-47) 01/07/24 13:15 MCV 92.8 fl (85-98) 01/07/24 13:15 MCH 30.5 pg (27-33) 01/07/24 13:15 MCHC 32.8 g/dL (30-55) 01/07/24 13:15 RDW 12.6 % (12.1-15.1) 01/07/24 13:15 Plt Count 232 10^3/cmm (157-399) 01/07/24 13:15 MPV 9.4 fL (7.4-10.4) 01/07/24 13:15 Neut % (Auto) 62.1 % 01/07/24 13:15 Lymph % (Auto) 28.6 % 01/07/24 13:15 [place] % (Auto) 7.9 % 01/07/24 13:15 Eos % (Auto) 0.7 % 01/07/24 13:15 Baso % (Auto) 0.5 % 01/07/24 13:15 Neut # (Auto) 2.76 10^3/uL (1.8-7.7) 01/07/24 13:15 Lymph # (Auto) 1.3 10^3/uL (0.8-4.8) 01/07/24 13:15 [place] # (Auto) 0.4 10^3/uL (0.2-0.9) 01/07/24 13:15 Eos # (Auto) 0.0 10^3/uL (0.0-0.8) 01/07/24 13:15 Baso # (Auto) 0.0 10^3/uL (0.0-0.1) 01/07/24 13:15 Nucleated RBC % (auto) 0 % 01/07/24 13:15 Nucleated RBCs # 0.0 /100WBC 01/07/24 13:15 Sodium 138 mmol/L (136-145) 01/07/24 13:15 Potassium 3.9 mmol/L (3.5-5.1) 01/07/24 13:15 Chloride 107 mmol/L (98-107) 01/07/24 13:15 Carbon Dioxide 24 mmol/L (22-29) 01/07/24 13:15 Anion Gap 10.9 (5-19) 01/07/24 13:15 BUN 6 mg/dL (6-20) 01/07/24 13:15 Creatinine 0.6 mg/dL (0.5-0.9) 01/07/24 13:15 GFR Calculation 123.9 mL/min (90-130) 01/07/24 13:15 Glucose 82 mg/dL (65-115) 01/07/24 13:15 Calculated Osmolality 283 mOsm/kg (285-295) L 01/07/24 13:15 Calcium 8.9 mg/dL (8.5-10.5) 01/07/24 13:15 Total Bilirubin 0.3 mg/dL (0.15-1.2) 01/07/24 13:15 AST 12 U/L (0-32) 01/07/24 13:15 ALT 11 U/L (0-33) 01/07/24 13:15 Alkaline Phosphatase 63 U/L (35-105) 01/07/24 13:15 Total Protein 6.8 g/dL (6.6-8.7) 01/07/24 13:15 Albumin 4.2 g/dL (3.5-5.2) 01/07/24 13:15 Globulin 2.6 g/dL (1.3-4.6) 01/07/24 13:15 Lipase 30 U/L (13-60) 01/07/24 13:15 HCG, Qual Negative (Negative) 01/07/24 13:47 Urine Color Yellow (Yellow) 01/07/24 13:47 Urine Appearance Clear (CLEAR) 01/07/24 13:47 Urine pH 7 (5-7) 01/07/24 13:47 Ur Specific [place] 1.005 (1.005-1.030) 01/07/24 13:47 Urine Protein Neg (Negative) 01/07/24 13:47 Urine Glucose (UA) Norm (Normal) 01/07/24 13:47 Urine Ketones Negative (Negative) 01/07/24 13:47 Urine Blood Neg (Negative) 01/07/24 13:47 Urine Nitrate Negative (Negative) 01/07/24 13:47 Urine Bilirubin Neg (Negative) 01/07/24 13:47 Urine Urobilinogen Neg mg/dL (Negative) 01/07/24 13:47 Ur Leukocyte Esterase Negative (Negative) 01/07/24 13:47 All radiology interpretation(s) finalized by discharge Discharge Plan Discharge Patient Disposition: Home Clinical Impression: Biliary colic Cholelithiasis Qualifiers: Cholelithiasis location: gallbladder Cholecystitis presence: without cholecystitis Biliary obstruction: without biliary obstruction Qualified Code(s): K80.20 - Calculus of gallbladder without cholecystitis without obstruction Condition: Stable Prescriptions: New hydrocodone-acetaminophen 5-325 mg tablet 1 tab PO Q6H PRN (Reason: pain) Qty: 14 0RF ondansetron 4 mg tablet,disintegrating 4 mg PO Q8H PRN (Reason: nausea and vomiting) Qty: 14 0RF No Action albuterol sulfate [Ventolin HFA] 90 mcg/actuation HFA aerosol inhaler 2 puff inhalation Q6H PRN (Reason: asthma) ibuprofen 800 mg tablet 800 mg PO Q8H PRN (Reason: pain) Miralax 17 gram/dose powder 17 g PO DAILY PRN (Reason: Constipation) hydroxyzine HCl 10 mg tablet 10 mg PO Q8H PRN (Reason: Anxiety) Discharge Orders: Discharge ED (Routine); Ordered 01/07/24 Ordered By: Ashlyn Payan Referrals: Guillaume Degroot MD [Primary Care Provider] - Patient Instructions: Biliary Colic (ED), Gallstones (ED), Opioid Safety, Pain Management Activity Restrictions/Additional Instructions: As we discussed case management should reach out to you next week to help set you up with your follow-up appointment with general surgery. As we discussed try to avoid all greasy or fatty foods is much as possible as this can cut down on your biliary colic like symptoms. You may take the pain and nausea medications as needed. You need to return to the emergency department for severe or constant pain, fevers, repetitive episodes of vomiting, any yellowing to your skin or eyes, generally feeling worse or unwell, or any other concerns you may have. I hope you begin to feel better soon. Coding Level of Care Code ED Inspector [employer] for Clement Anthony
--- NOTE | 2024-01-07 12:31 | US_ITS ---
WS: [id number] RIGHT UPPER QUADRANT ULTRASOUND HISTORY: RUQ pain COMPARISON: 03/12/2023, 01/28/2021 Liver: 13.9 cm in length. Normal size liver. Patient has a known hepatic cyst just beneath the diaphr agm measuring 6.9 x 5.8 x 5.2 cm. No solid mass and no bile duct dilatation. Portal Vein: Normal hepatopetal flow with monophasic waveform. Gallbladder: Normally distended gallbladder. There is at least one very small stone in the fundus of the gallbladder. No gallbladder wall thickening. CBD: 0.4 cm Pancreas: Obscured. Right kidney: 9.7 cm in length. Normal size and echogenicity. No hydronephrosis or mass. Aorta and IVC: Unremarkable abdominal aorta and IVC. No ascites. IMPRESSION: 1. Cholelithiasis without acute cholecystitis. There is a very tiny stone within the gallbladder maria g t is not been seen on prior imaging studies. 2. Patient has a known hepatic cyst with trace minimal increase in size since 01/28/2021. No change s basilio 03/12/2023.
[2024-01-07 13:32] LABS: Basophils % 0.5 %; Eosinophils % 0.7 %; Hematocrit 38.7 % (36-47); Lymphocytes # 1.3 10^3/uL (0.8-4.8); Lymphocytes % 28.6 %; Mean Corpuscular HGB Conc 32.8 g/dL (30-55); Mean Corpuscular Hemoglobin 30.5 pg (27-33); Mean Corpuscular Volume 92.8 fl (85-98); Mean Platelet Volume 9.4 fL (7.4-10.4); Monocytes # 0.4 10^3/uL (0.2-0.9); Monocytes % 7.9 %; Neutrophils # 2.76 10^3/uL (1.8-7.7); Neutrophils % 62.1 %; Nucleated Red Blood Cells % 0 %; Platelet Count 232 10^3/cmm (157-399); Red Blood Count 4.17 10^6/uL (3.85-5.65); Red Cell Distribution Width 12.6 % (12.1-15.1); White Blood Count 4.44 10^3/uL (3.29-11.43)
[2024-01-07 13:53] LABS: Add Urine Microscopic? NO; Charge for UA Resulting for Rev
[2024-01-07 13:54] LABS: Alanine Aminotransferase 11 U/L (0-33); Albumin Level 4.2 g/dL (3.5-5.2); Alkaline Phosphatase 63 U/L (35-105); Anion Gap 10.9 (5-19); Aspartate Amino Transferase 12 U/L (0-32); Blood Urea Nitrogen 6 mg/dL (6-20); Calcium 8.9 mg/dL (8.5-10.5); Carbon Dioxide 24 mmol/L (22-29); Chloride 107 mmol/L (98-107); Globulin 2.6 g/dL (1.3-4.6); Glomerular Filtration Rate 123.9 mL/min (90-130); Glucose 82 mg/dL (65-115); Lipase 30 U/L (13-60); Osmolality Calculated 283 mOsm/kg (285-295); Potassium 3.9 mmol/L (3.5-5.1); Sodium 138 mmol/L (136-145); Total Bilirubin 0.3 mg/dL (0.15-1.2); Total Protein 6.8 g/dL (6.6-8.7)
[2024-01-07 14:01] LABS: HCG Qualitative Urine. Negative (Negative)
[2024-01-07 14:02] LABS: Bilirubin Urine Neg (Negative); Blood Urine Neg (Negative); Glucose Urine UA Norm (Normal); Ketones Urine Negative (Negative); Leukocyte Esterase Urine Negative (Negative); Nitrate Urine Negative (Negative); Protein Urine Neg (Negative); Specific Gravity, Urine 1.005 (1.005-1.030); Urine Appearance Clear (CLEAR); Urine Color Yellow (Yellow); Urobilinogen Urine Neg (Negative); pH Urine 7 (5-7)
--- NOTE | 2024-01-10 07:10 | DCPLANNER ---
Addendum entered by Basil Soni 01/10/24 10:13: I faxed this patients chart on 01/10/24 at 1013 to [facility] Fax number: [phone]. Addendum entered by Basil Soni 01/10/24 09:26: Patient called the ER on 01/10/24 at 09. She is requesting her referral be sent to Dr. Grider instead of [facility] general surgery. Patient will be calling back with clinic information. Original Note: A message was sent to general surgery on 01/10/24 at 0710. Clinic to contact patient for appt;.
== END 2024-01-07 14:30 | disposition home or self-care (01) ==
PROVIDERS: Emergency Medicine; Emergency Provider Physician Assistant; PCP Family Medicine
DX: K80.20 Calculus of gallbladder without cholecystitis without obstruction (principal); F17.290 Nicotine dependence, other tobacco product, uncomplicated
CPT/HCPCS: 76705; 80053; 81003; 81025; 83690; 85025; 99284

== ENCOUNTER 2024-01-21 11:32 | Emergency (ER) | payer OTHER, SELFPAY ==
[2024-01-21 11:46] VITALS: BP 122/82; PULSE 98; RESP 18; TEMP 36.4; O2SAT 96; BMI 36.6
[2024-01-21 12:57] LABS: Basophils % 0.1 %; Eosinophils % 0.1 %; Hematocrit 40.4 % (36-47); Lymphocytes # 0.9 10^3/uL (0.8-4.8); Mean Corpuscular HGB Conc 33.7 g/dL (30-55); Mean Corpuscular Hemoglobin 30.5 pg (27-33); Mean Corpuscular Volume 90.6 fl (85-98); Mean Platelet Volume 9.5 fL (7.4-10.4); Monocytes # 0.5 10^3/uL (0.2-0.9); Monocytes % 6.4 %; Neutrophils # 7.03 10^3/uL (1.8-7.7); Neutrophils % 83.2 %; Nucleated Red Blood Cells % 0 %; Platelet Count 249 10^3/cmm (157-399); Red Blood Count 4.46 10^6/uL (3.85-5.65); Red Cell Distribution Width 12.3 % (12.1-15.1); White Blood Count 8.46 10^3/uL (3.29-11.43)
--- NOTE | 2024-01-21 13:50 | ED_ITS ---
HPI - Female Genitourinary 2 General: Chief complaint: Vaginal Bleeding Stated complaint: 6-8 weeks , bleeding Time Seen by Provider: 01/21/24 13:38 History of Present Illness: Patient presents to the ER with vaginal spotting in . Patient says she went to have her gallbladder taken out yesterday and they did a urine test presurgical and she was told she was . Patient says at most she might be 2 to 4 weeks due to her last menstrual period. Patient says her periods are regular. Patient says she is due to start another period today. Patient denies any abdominal pain or cramping. She says her bleeding is just enough to notice but not enough to wear a panty liner or tampon. Review of Systems 2 General: Reports: 10 or more systems reviewed and unremarkable except in HPI and below PFSH ED 2 PFSH: Medical History Pre-eclampsia, severe, delivered Anemia affecting in third trimester Surgical History Hx of knee surgery (~2017) 2017---left knee surgery arthroscopically for a torn cartilage Family History Grandmother Heart disease Maternal and Paternal Grandfather Heart disease Paternal and Maternal Hypercholesteremia Maternal Hypertension Maternal Stroke Maternal Other Clotting disorder Dementia Denies family history of Colon cancer Ovarian cancer Diabetes Psychiatric illness Chronic kidney disease (CKD) Breast cancer Anesthesia complication Bleeding disorder Lung disease Cancer Uterine cancer Thyroid disease Social History Smoking and tobacco/nicotine status: current every day tobacco/nicotine user e- cigarettes E-Cigarette Details: vaporizer device Substance/Drug Use: never Marital status: Number of children: 1 Current occupational status: unemployed Special osmani needs: No Agree to transfusion: Yes Physical Exam 2 Const: COMMON NORMALS: no acute distress, average body habitus, patient oriented x3, no limitations, healthy appearing, alert and well nourished Neck/C-Spine: COMMON NORMALS: no JVD Chest: COMMONS NORMALS: normal inspection of the chest and normal palpation of entire chest wall Resp: COMMON NORMALS: normal respiratory effort, No retractions, No use of accessory muscles and clear to auscultation bilaterally AUSCULTATION: clear to auscultation bilaterally Cardio: COMMON NORMALS: no JVD, regular rate, regular rhythm, S1 normal heart sound present, S2 normal heart sound present, No gallops present (Cardio), No clicks present (Cardio), No murmurs present (Cardio) and No rub (Cardio) R ATE: regular rate RHYTHM: regular rhythm HEART SOUNDS: S1 normal heart sound present and S2 normal heart sound present GI: COMMON NORMALS: Normal to inspection, nondistended, normoactive bowel sounds present, Soft to palpation, non-tender, No hepatosplenomegaly present and no masses PALPATION: Yes Soft to palpation and Yes No hepatosplenomegaly present Neuro: COMMON NORMALS: patient oriented x3 SENSORIUM/ORIENTATION: Yes alert Course 2 Vital Signs: Vital signs: Vital Signs Temperature 97.6 F 01/21/24 14:10 Pulse Rate 98 01/21/24 14:10 Respiratory Rate 18 01/21/24 14:10 Blood Pressure 122/82 01/21/24 14:10 Pulse Oximetry 96 01/21/24 14:10 Oxygen Delivery Me thod Room Air 01/21/24 11:46 MDM - Female Medical Decision Making Patient lab work that included CBC and quantitative hCG, CBC was within normal limits quantitative hCG was 175.5. Review of patient's previous lab work showed her blood type is O+. These results was discussed with the patient and the significance of her a repeat quantitative beta-hCG in 48 to 72 hours. Patient understands the the significance and will be discharged home. Lab Data 01/21/24 12:51 Laboratory Results WBC 8.46 10^3/uL (3.29-11.43) 01/21/24 12:51 RBC 4.46 10^6/uL (3.85-5.65) 01/21/24 12:51 Hgb 13.60 g/dL (11.27-16.99) 01/21/24 12:51 Hct 40.4 % (36-47) 01/21/24 12:51 MCV 90.6 fl (85-98) 01/21/24 12:51 MCH 30.5 pg (27-33) 01/21/24 12:51 MCHC 33.7 g/dL (30-55) 01/21/24 12:51 RDW 12.3 % (12.1-15.1) 01/21/24 12:51 Plt Count 249 10^3/cmm (157-399) 01/21/24 12:51 MPV 9.5 fL (7.4-10.4) 01/21/24 12:51 Neut % (Auto) 83.2 % 01/21/24 12:51 Lymph % (Auto) 10.0 % 01/21/24 12:51 [place] % (Auto) 6.4 % 01/21/24 12:51 Eos % (Auto) 0.1 % 01/21/24 12:51 Baso % (Auto) 0.1 % 01/21/24 12:51 Neut # (Auto) 7.03 10^3/uL (1.8-7.7) 01/21/24 12:51 Lymph # (Auto) 0.9 10^3/uL (0.8-4.8) 01/21/24 12:51 [place] # (Auto) 0.5 10^3/uL (0.2-0.9) 01/21/24 12:51 Eos # (Auto) 0.0 10^3/uL (0.0-0.8) 01/21/24 12:51 Baso # (Auto) 0.0 10^3/uL (0.0-0.1) 01/21/24 12:51 Nucleated RBC % (auto) 0 % 01/21/24 12:51 Nucleated RBCs # 0.0 /100WBC 01/21/24 12:51 Ser , Semi-Qnt 175.50 mIU/mL 01/21/24 12:51 All radiology interpretation(s) finalized by discharge Discharge Plan Discharge Patient Disposition: Home Clinical Impression: Qualifiers: Weeks of gestation: less than 8 weeks Qualified Code(s): Z3A.01 - Less than 8 weeks gestation of Condition: Stable Prescriptions: No Action albuterol sulfate [Ventolin HFA] 90 mcg/actuation HFA aerosol inhaler 2 puff inhalation Q6H PRN (Reason: asthma) ibuprofen 800 mg tablet 800 mg PO Q8H PRN (Reason: pain) Miralax 17 gram/dose powder 17 g PO DAILY PRN (Reason: Constipation) hydroxyzine HCl 10 mg tablet 10 mg PO Q8H PRN (Reason: Anxiety) hydrocodone-acetaminophen 5-325 mg tablet 1 tab PO Q6H PRN (Reason: pain) Qty: 14 0RF ondansetron 4 mg tablet,disintegrating 4 mg PO Q8H PRN (Reason: nausea and vomiting) Qty: 14 0RF Discharge Orders: Discharge ED (Routine); Ordered 01/21/24 Ordered By: Bernardino Bravo Referrals: Guillaume Degroot MD [Primary Care Provider] - 1-3 days Patient Instructions: (ED) Activity Restrictions/Additional Instructions: Your lab work in ER did reveal a positive test. Your quantitative beta-hCG was 175. This very roughly correlates to approximately 2 to 4 weeks gestation. Please have your lab drawn in 48 to 72 hours to recheck the quantitative beta-hCG. The number should roughly double during this time. Coding Level of Care Code ED Grinder Set Up Operator for Clement Anthony
[2024-01-21 14:10] VITALS: BP 122/82; PULSE 98; RESP 18; TEMP 36.4; O2SAT 96
== END 2024-01-21 14:11 | disposition home or self-care (01) ==
PROVIDERS: Physician Assistant; Emergency Provider Emergency Medicine; PCP Family Medicine
DX: O26.851 Spotting complicating pregnancy, first trimester (principal); O99.331 Smoking (tobacco) complicating pregnancy, first trimester; F17.290 Nicotine dependence, other tobacco product, uncomplicated; Z3A.01 Less than 8 weeks gestation of pregnancy
CPT/HCPCS: 36415; 84702; 85025; 99283

== ENCOUNTER 2024-01-24 07:17 | Emergency (ER) | payer OTHER, SELFPAY ==
[2024-01-24 07:25] VITALS: BP 155/97; PULSE 98; RESP 16; TEMP 36.7; O2SAT 98
[2024-01-24 07:34] LABS: Basophils % 0.4 %; Eosinophils # 0.1 10^3/uL (0.0-0.8); Eosinophils % 2.2 %; Hematocrit 40.2 % (36-47); Lymphocytes # 2.1 10^3/uL (0.8-4.8); Lymphocytes % 41.2 %; Mean Corpuscular HGB Conc 32.6 g/dL (30-55); Mean Corpuscular Hemoglobin 30.1 pg (27-33); Mean Corpuscular Volume 92.4 fl (85-98); Mean Platelet Volume 9.5 fL (7.4-10.4); Monocytes # 0.4 10^3/uL (0.2-0.9); Monocytes % 7.8 %; Neutrophils # 2.39 10^3/uL (1.8-7.7); Neutrophils % 48.2 %; Nucleated Red Blood Cells % 0 %; Platelet Count 224 10^3/cmm (157-399); Red Blood Count 4.35 10^6/uL (3.85-5.65); White Blood Count 4.97 10^3/uL (3.29-11.43)
--- NOTE | 2024-01-24 07:37 | ED_ITS ---
HPI - 2 General: Chief complaint: Vaginal Bleeding Stated complaint: women problems, Bleeding Time Seen by Provider: 01/24/24 07:21 Source: patient Mode of arrival: ambulatory History of Present Illness: 23-year-old female presents emergency ro om with complaint of vaginal bleeding. She was seen several days ago in the emergency room has serum quantitative beta- hCG of 175 was advised she needed follow-up continue to have some very mild cramping in the pelvic region and continued bleeding. No other symptoms. She has a primary care doctor that she has not seen. MD Complaint: abdominal pain Onset (ago): day(s) Location: pelvis Quality: Cramping Relieving factors: none Exacerbating factors: none Vaginal bleeding: other (Waxing and waning) Associated symptoms: Reports vaginal bleeding; Deny abdominal pain, dyspareunia, dysuria, headache(s), malaise, nausea, rash, seizures, short of breath, syncope, vaginal discharge, visual changes, vomiting or weakness Review of Systems 2 Const: Denies: fever(s), chills or malaise Card: Denies: chest pain or syncope Resp: Denies: dyspnea GI: Denies: abdominal pain, nausea or vomiting : Denies: dysuria, urinary frequency, urinary urgency, vaginal discharge or dyspareunia Musc: Denies: neck pain or back pain Skin/Breast: Denies: rash Neuro: Denies: headache(s) PFSH ED 2 PFSH: Medical History Pre-eclampsia, severe, delivered Anemia affecting in third trimester Surgical History Hx of knee surgery (~2017) 2017---left knee surgery arthroscopically for a torn cartilage Family History Grandmother Heart disease Maternal and Paternal Grandfather Heart disease Paternal and Maternal Hypercholesteremia Maternal Hypertension Maternal Stroke Maternal Other Clotting disorder Dementia Denies family history of Colon cancer Ovarian cancer Diabetes Psychiatric illness Chronic kidney disease (CKD) Breast cancer Anesthesia complication Bleeding disorder Lung disease Cancer Uterine cancer Thyroid disease Social History Smoking and tobacco/nicotine status: current every day tobacco/nicotine user e- cigarettes E-Cigarette Details: vaporizer device Substance/Drug Use: never Marital status: Number of children: 1 Current occupational status: unemployed Special osmani needs: No Agree to transfusion: Yes Physical Exam 2 Const: COMMON NORMALS: no acute distress GENERAL APPEARANCE: cooperative and comfortable ORIENTATION/CONSCIOUSNESS: Yes awake, Yes oriented to person, Yes oriented to place and Yes oriented to time HENMT: COMMON NORMALS: normocephalic, atraumatic and hearing grossly normal bilaterally HEAD & SCALP: normocephalic and atraumatic Resp: COMMON NORMALS: normal respiratory effort, No retractions, No use of accessory muscles and clear to auscultation bilaterally AUSCULTATION: clear to auscultation bilaterally Cardio: COMMON NORMALS: regular rate, regular rhythm and No murmurs present (Cardio) RATE: regular rate RHYTHM: regular rhythm GI: COMMON NORMALS: Soft to palpation and No hepatosplenomegaly present A USCULTATION: Yes normoactive bowel sounds PALPATION: Yes Soft to palpation, No Tenderness to palpation present (GI), No Guarding due to palpation present (GI) and Yes No hepatosplenomegaly present : SPECULUM EXAM - VAGINA: Yes vaginal bleeding OB/EXTERNAL & SPECULUM: v aginal bleeding Extremity: COMMON NORMALS: normal to inspection, capillary refill normal, no clubbing, cyanosis or edema, no calf tenderness and no pedal edema Neuro: SENSORIUM/ORIENTATION: Yes oriented to person, Yes oriented to place and Yes oriented to time Skin: COMMON NORMALS: no rashes or lesions noted GENERAL SKIN EXAM: no rashes or lesions noted Course 2 Vital Signs: Vital signs: Vital Signs Temperature 98.0 F 01/24/24 07:25 Pulse Rate 98 01/24/24 07:25 Respiratory Rate 18 01/24/24 07:55 Blood Pressure 155/97 01/24/24 07:55 Pulse Oximetry 96 01/24/24 07:55 Oxygen Delivery Me thod Room Air 01/24/24 07:55 MDM - OB/Uterine Contractions Medical Decision Making Beta-hCG increasing but still less than 1500 her vaginal bleeding has waxed and waned. At this point continue to observe encouraged her to recheck with her primary care doctor in the office in 3 to 4 days for repeat. At 1500 she should have a ultrasound done to confirm intrauterine . If symptoms worsen significantly return. Hemoglobin stable. Medical Records I reviewed the patient's medical records. Lab Data I reviewed the patient's lab results. 01/24/24 07: Laboratory Results WBC 4.97 10^3/uL (3.29-11.43) 01/24/24 07: RBC 4.35 10^6/uL (3.85-5.65) 01/24/24 07: Hgb 13.10 g/dL (11.27-16.99) 01/24/24 07: Hct 40.2 % (36-47) 01/24/24 07: MCV 92.4 fl (85-98) 01/24/24 07: MCH 30.1 pg (27-33) 01/24/24 07: MCHC 32.6 g/dL (30-55) 01/24/24 07: RDW 12.0 % (12.1-15.1) L 01/24/24 07: Plt Count 224 10^3/cmm (157-399) 01/24/24 07: MPV 9.5 fL (7.4-10.4) 01/24/24 07: Neut % (Auto) 48.2 % 01/24/24 07: Lymph % (Auto) 41.2 % 01/24/24 07: [place] % (Auto) 7.8 % 01/24/24 07: Eos % (Auto) 2.2 % 01/24/24 07: Baso % (Auto) 0.4 % 01/24/24: Neut # (Auto) 2.39 10^3/uL (1.8-7.7) 01/24/24 07: Lymph # (Auto) 2.1 10^3/uL (0.8-4.8) 01/24/24 07: [place] # (Auto) 0.4 10^3/uL (0.2-0.9) 01/24/24 07: Eos # (Auto) 0.1 10^3/uL (0.0-0.8) 01/24/24 07: Baso # (Auto) 0.0 10^3/uL (0.0-0.1) 01/24/24 07:27 Nucleated RBC % (auto) 0 % 01/24/24 07:27 Nucleated RBCs # 0.0 /100WBC 01/24/24 07:27 Ser , Semi-Qnt 561.40 mIU/mL 01/24/24 07:27 No radiology studies performed this visit Discharge Plan Discharge Patient Disposition: Home Clinical Impression: Threatened miscarriage in early Condition: Stable Prescriptions: No Action No Known Home Medications Discharge Orders: Discharge ED (Routine); Ordered 01/24/24 Ordered By: Emiliano Chauhan Referrals: Guillaume Degroot MD [Primary Care Provider] - Discharge Diet: Usual diet Discharge Activity: Increase activity as tolerated Patient Instructions: Threatened Miscarriage (ED), Opioid Safety, Pain Management Activity Restrictions/Additional Instructions: Thank you for choosing [facility] for your healthcare needs today. Please realize this is an emergency room and that we are providing you with a medical screening exam and this may not be complete and all inclusive of all the testing and or work up that you may need to determine your ailment or severity of your illness. It is very important that you follow up as instructed or that you return to the Emergency Department should you have concerns or if your condition changes or worsens in any way. Recommend you follow-up with Dr. Degroot in his office in 3 to 4 days. Coding Level of Care Code ED Senior Product Integrity Engineer for Clement Anthony
[2024-01-24 07:55] VITALS: BP 155/97; RESP 18; O2SAT 96
--- NOTE | 2024-01-24 08:28 | PC.PHAR ---
PT STATES SHE TAKES NO MAINTENANCE MEDICATIONS AND DOES NOT TAKE ANY OTC VITAMINS ETC. 01/24/24
== END 2024-01-24 08:53 | disposition home or self-care (01) ==
PROVIDERS: Emergency Provider Family Medicine; PCP Family Medicine
DX: O20.0 Threatened abortion (principal); Z3A.00 Weeks of gestation of pregnancy not specified; O99.330 Smoking (tobacco) complicating pregnancy, unspecified trimester; F17.290 Nicotine dependence, other tobacco product, uncomplicated
CPT/HCPCS: 36415; 84702; 85025; 99283

== ENCOUNTER 2024-02-12 10:52 | Inpatient (IN) | payer OTHER, SELFPAY ==
[2024-02-12] VITALS (21 sets, daily range): BP systolic 96–138; BP diastolic 60–92; PULSE 64–117; RESP 16–22; TEMP 36.6–36.9; O2SAT 90–100; BMI 37.9
--- NOTE | 2024-02-12 11:08 | USR_ITS ---
PROCEDURE INFORMATION: Exam: US , Transvaginal and US Duplex Artery and Vein, Ovaries, Complete Exam date and time: 02/12/2024 11:29 AM Clinical indication: complicated by abdominal or pelvic pain; Lower; First trimester (<14 weeks 0 days); Gestational age or lmp: No iup identified; Additional info: Miscarriage, but ob had concern for right sided ectopic TECHNIQUE: Imaging protocol: Real-time transvaginal obstetrical ultrasound of the maternal pelvis and a first trimester with image documentation. Transvaginal imaging was used for better evaluation of the fetus, adnexa, and/or cervix. Real-time duplex ultrasound scan of the arterial and venous flow of the ovaries with B-mode, color Doppler flow and spectral waveform analysis, Complete Duplex. Duplex exam was performed to evaluate for torsion and other vascular conditions. COMPARISON: No relevant prior studies available. FINDINGS: GESTATION: Gestation: There is no intrauterine gestational sac. heart rate: Not applicable Placenta: Not applicable Amniotic fluid: Not applicable BIOMETRY: Gestational age (AUA): Not applicable MATERNAL: Uterus: The uterus is anteverted. Contours are normal. The uterus measures 7.0 x 5.5 x 3.8 cm. Endometrial echotexture is mildly heterogeneous. There is no fluid in the endometrial canal. Endometrial stripe thickness is 10 mm. There is no endometrial mass or abnormal blood flow in the endometrium. Right ovary/adnexa: The right ovary is morphologically normal. There is normal arterial and venous blood flow in right ovary. There is trace free fluid in the right adnexa. The right ovary measures 2.4 x 2.1 x 1.8 cm. Left ovary/adnexa: The left ovary is morphologically normal. There is normal arterial and venous blood flow in the left ovary. There is moderate free fluid in the left adnexa containing low level internal echoes. There is an ill-defined mixed echogenicity mass intimately associated with the left ovary, position posterior to the uterus, which measures approximately 5 cm diameter and demonstrates no internal blood flow by limited color Doppler interrogation. The left ovary measures 2.8 x 2.7 x 2.7 cm. Intraperitoneal space: Moderate left and trace right adnexal free fluid. US/US OB <= 14 weeks fetus [id number] IMPRESSION: 1. No visible intrauterine gestational sac. Differential diagnosis includes early intrauterine , spontaneous , and ectopic . Recommend continued follow-up beta hCG and repeat ultrasound if necessary for confirmation. 2. Approximately 5 cm diameter ill-defined left adnexal mass. No internal blood flow by color Doppler interrogation. Probable hematoma which could be due to ruptured ectopic or ruptured hemorrhagic cyst. 3. Moderate left and trace right adnexal free fluid is suspicious for intraperitoneal blood.
--- NOTE | 2024-02-12 11:15 | ED_ITS ---
HPI - 2 General: Chief complaint: Vaginal Bleeding Stated complaint: dizzy, weakness, nausea Time Seen by Provider: 02/12/24 11:03 History of Present Illness: 23-year-old female who presents to the e mergency room with weakness, near syncope, abdominal pain and vaginal bleeding. She says she was approximately 8 weeks and saw a doctor in [place] who told her she was having a miscarriage but also said she had some concern for ectopic . Patient states she has been bleeding for several days. She is having low abdominal pain and diffuse abdominal pain and some focal sharp pain in her right adnexal area. She is unsure if she has had any fever. She does not report any dysuria. No chest pain. No altered mental status. No focal motor deficits. Review of Systems 2 Narrative: Constitutional symptoms: Negative except as documented in HPI. Skin symptoms: Negative except as documented in HPI. Eye symptoms: Negative except as documented in HPI. ENMT symptoms: Negative except as documented in HPI. Respiratory symptoms: Negative except as documented in HPI. Cardiovascular symptoms: Negative except as documented in HPI. Gastrointestinal symptoms: Negative except as documented in HPI. Genitourinary symptoms: Negative except as documented in HPI. Musculoskeletal symptoms: Negative except as documented in HPI. Neurologic symptoms: Negative except as documented in HPI. Psychiatric symptoms: Negative except as documented in HPI. Endocrine symptoms: Negative except as documented in HPI. PFSH ED 2 PFSH: Medical History Pre-eclampsia, severe, delivered Anemia affecting in third trimester Surgical History Hx of knee surgery (~2017) 2017---left knee surgery arthroscopically for a torn cartilage Family History Grandmother Heart disease Maternal and Paternal Grandfather Heart disease Paternal and Maternal Hypercholesteremia Maternal Hypertension Maternal Stroke Maternal Other Clotting disorder Dementia Denies family history of Colon cancer Ovarian cancer Diabetes Psychiatric illness Chronic kidney disease (CKD) Breast cancer Anesthesia complication Bleeding disorder Lung disease Cancer Uterine cancer Thyroid disease Social History Smoking and tobacco/nicotine status: current every day tobacco/nicotine user e- cigarettes E-Cigarette Details: vaporizer device Substance/Drug Use: never Marital status: Number of children: 1 Current occupational status: unemployed Special osmani needs: No Agree to transfusion: Yes Physical Exam 2 Narrative: EXAM NARRATIVE: General: Alert, no acute distress. Skin: Patient is cool, pale a bit reticulocyte. Head: Normocephalic, atraumatic. Neck: Supple, trachea midline. Eye: Extraocular movements are intact. Ears, nose, mouth and throat: mucosa moist. Cardiovascular: Regular, Normal peripheral perfusion. Respiratory: Lungs are clear to auscultation, respirations are non-labored, breath sounds are equal, Symmetrical chest wall expansion. Gastrointestinal: Soft, patient has diffuse abdominal pain, generalized worsening on the right but a very focal area of tenderness to palpation in the left adnexal area, Non distended, Normal bowel sounds. Musculoskeletal: Normal ROM, no deformity. Neurological: Alert and oriented, No focal neurological deficit observed. Psychiatric: Cooperative, appropriate mood & affect. Course 2 Vital Signs: Vital signs: Vital Signs Temperature 98.3 F 02/12/24 11:02 Pulse Rate 98 02/12/24 11:30 Respiratory Rate 16 02/12/24 11:30 Blood Pressure 104/64 02/12/24 11:30 Pulse Oximetry 100 02/12/24 11:30 Oxygen Delivery Me thod Room Air 02/12/24 11:02 MDM - OB/Uterine Contractions Medical Decision Making Medical decision making: Differential diagnosis including but not limited to and based on the above HPI, review of systems and physical exam: for patient in early with vaginal bleeding and abdominal pain: Spontaneous , threatened . Urinary tract infection. ectopic . Orders placed to evaluate differential diagnosis based on the above differential, HPI and physical exam Lab Review: Laboratory results were reviewed and interpreted by myself the emergency room physician. Patient has some leukocytosis with a white count of 11.5. Hemoglobin is 12.2. Comparison from just a couple of weeks ago shows a hemoglobin of 13.6 so she is lost at least a gram and a half of blood. No renal failure. BUN and creatinine are 12 and 0.7. Slight acidosis with a bicarb of 21. Her serum quant is positive but very low. 1999. Transvaginal early gestational ultrasound: GESTATION: Gestation: There is no intrauterine gestational sac. heart rate: Not applicable Placenta: Not applicable Amniotic fluid: Not applicable BIOMETRY: Gestational age (AUA): Not applicable MATERNAL: Uterus: The uterus is anteverted. Contours are normal. The uterus measures 7.0 x 5.5 x 3.8 cm. Endometrial echotexture is mildly heterogeneous. There is no fluid in the endometrial canal. Endometrial stripe thickness is 10 mm. There is no endometrial mass or abnormal blood flow in the endometrium. Right ovary/adnexa: The right ovary is morphologically normal. There is normal arterial and venous blood flow in right ovary. There is trace free fluid in the right adnexa. The right ovary measures 2.4 x 2.1 x 1.8 cm. Left ovary/adnexa: The left ovary is morphologically normal. There is normal arterial and venous blood flow in the left ovary. There is moderate free fluid in the left adnexa containing low level internal echoes. There is an ill-defined mixed echogenicity mass intimately associated with the left ovary, position posterior to the uterus, which measures approximately 5 cm diameter and demonstrates no internal blood flow by limited color Doppler interrogation. The left ovary measures 2.8 x 2.7 x 2.7 cm. Intraperitoneal space: Moderate left and trace right adnexal free fluid. IMPRESSION: 1. No visible intrauterine gestational sac. Differential diagnosis includes early intrauterine , spontaneous , and ectopic . Recommend continued follow-up beta hCG and repeat ultrasound if necessary for confirmation. 2. Approximately 5 cm diameter ill-defined left adnexal mass. No internal blood flow by color Doppler interrogation. Probable hematoma which could be due to ruptured ectopic or ruptured hemorrhagic cyst. 3. Moderate left and trace right adnexal free fluid is suspicious for intraperitoneal blood. Consultation: I spoke with Dr. Cordova. She is on-call for [employer]IOR [employer]UD[employer] this weekend. She is evaluating the patient in the ER. Reexamination: Patient's blood pressure has remained with systolic right at 100. While sitting she is much less symptomatic. No increased work of breathing. No altered mental status. She still is quite tender in her left adnexa. Dilaudid is being given. Repeat hemoglobin shows drop from 12.[address] Cordova saw the patient in the emergency room and is taking to the operating room. I had typed and screened her on presentation. Medical Records I reviewed the patient's medical records. Lab Data 02/12/24 12:52 02/12/24 11:17 Radiology Impressions Ultrasound 02/12/24 11:08 IMPRESSION: 1. No visible intrauterine gestational sac. Differential diagnosis includes early intrauterine , spontaneous , and ectopic . Recommend continued follow-up beta hCG and repeat ultrasound if necessary for confirmation. 2. Approximately 5 cm diameter ill-defined left adnexal mass. No internal blood flow by color Doppler interrogation. Probable hematoma which could be due to ruptured ectopic or ruptured hemorrhagic cyst. 3. Moderate left and trace right adnexal free fluid is suspicious for intraperitoneal blood. ADDENDUM: 02/12/24 1236 THIS REPORT CONTAINS FINDINGS THAT MAY BE CRITICAL TO PATIENT CARE. The findings and recommendations were verbally communicated by me via telephone conference with ОЛЕГ GUTIÉRREZ at 12:32 PM CDT on 02/12/2024. The findings were acknowledged and understood. Laboratory Results WBC 10.70 10^3/uL (3.29-11.43) 02/12/24 12:52 RBC 3.74 10^6/uL (3.85-5.65) L 02/12/24 12:52 Hgb 11.60 g/dL (11.27-16.99) 02/12/24 12:52 Hct 35.3 % (36-47) L 02/12/24 12:52 MCV 94.4 fl (85-98) 02/12/24 12:52 MCH 31.0 pg (27-33) 02/12/24 12:52 MCHC 32.9 g/dL (30-55) 02/12/24 12:52 RDW 12.1 % (12.1-15.1) 02/12/24 12:52 Plt Count 236 10^3/cmm (157-399) 02/12/24 12:52 MPV 9.5 fL (7.4-10.4) 02/12/24 12:52 Neut % (Auto) 89.5 % 02/12/24 12:52 Lymph % (Auto) 5.8 % 02/12/24 12:52 [place] % (Auto) 4.3 % 02/12/24 12:52 Eos % (Auto) 0.0 % 02/12/24 12:52 Baso % (Auto) 0.1 % 02/12/24 12:52 Neut # (Auto) 9.58 10^3/uL (1.8-7.7) H 02/12/24 12:52 Lymph # (Auto) 0.6 10^3/uL (0.8-4.8) L 02/12/24 12:52 [place] # (Auto) 0.5 10^3/uL (0.2-0.9) 02/12/24 12:52 Eos # (Auto) 0.0 10^3/uL (0.0-0.8) 02/12/24 12:52 Baso # (Auto) 0.0 10^3/uL (0.0-0.1) 02/12/24 12:52 Nucleated RBC % (auto) 0 % 02/12/24 12:52 Nucleated RBCs # 0.0 /100WBC 02/12/24 12:52 Sodium 137 mmol/L (136-145) 02/12/24 11:17 Potassium 3.5 mmol/L (3.5-5.1) 02/12/24 11:17 Chloride 103 mmol/L (98-107) 02/12/24 11:17 Carbon Dioxide 21 mmol/L (22-29) L 02/12/24 11:17 Anion Gap 16.5 (5-19) 02/12/24 11:17 BUN 12 mg/dL (6-20) 02/12/24 11:17 Creatinine 0.7 mg/dL (0.5-0.9) 02/12/24 11:17 GFR Calculation 103.7 mL/min (90-130) 02/12/24 11:17 Glucose 147 mg/dL (65-115) H 02/12/24 11:17 Calculated Osmolality 286 mOsm/kg (285-295) 02/12/24 11:17 Lactic Acid 1.9 mmol/L (0.5-2.2) 02/12/24 11:17 Calcium 8.8 mg/dL (8.5-10.5) 02/12/24 11:17 Total Bilirubin 0.3 mg/dL (0.15-1.2) 02/12/24 11:17 AST 11 U/L (0-32) 02/12/24 11:17 ALT 11 U/L (0-33) 02/12/24 11:17 Alkaline Phosphatase 65 U/L (35-105) 02/12/24 11:17 Total Protein 7.0 g/dL (6.6-8.7) 02/12/24 11:17 Albumin 4.3 g/dL (3.5-5.2) 02/12/24 11:17 Globulin 2.7 g/dL (1.3-4.6) 02/12/24 11:17 Ser , Semi-Qnt 2016.00 mIU/mL 02/12/24 11:17 Blood Type O Positive 02/12/24 11:17 Rho(D) Type Rh positive 02/12/24 11:17 Antibody Screen Negative 02/12/24 11:17 XR interpretation done by ED provider, pending radiology final review Other Data Assessment and plan: Ruptured ectopic Hemoperitoneum -Dilaudid for pain. -1 L normal saline bolus was given. -Blood type is O+. Does not require RhoGAM -Consultation with obstetrics who is admitting the patient to the OR. - Discussed findings and plan with patient. Answered any questions. - All laboratory values were reviewed and interpreted personally by myself, the ER physician - All imaging was reviewed and interpreted personally by myself, the ER physician. - Evaluation and treatment of this problem were appropriate in the emergency setting -I spent a total of >35 minutes of critical care time managing the patient, independent of any other practitioner. -The time involved in the performance of separately reportable procedures was not counted towards critical care time. Discharge Plan Discharge Patient Disposition: Admitted As Inpatient Clinical Impression: Hemoperitoneum due to rupture of left tubal ectopic Condition: Serious Coding Level of Care Code ED [employer] for Clement Anthony
--- NOTE | 2024-02-12 11:28 | PC.PHAR ---
pt states takes no prescription medications
[2024-02-12 11:35] LABS: Basophils % 0.3 %; Eosinophils % 0.3 %; Hematocrit 36.3 % (36-47); Lymphocytes # 1.7 10^3/uL (0.8-4.8); Lymphocytes % 15.1 %; Mean Corpuscular HGB Conc 33.6 g/dL (30-55); Mean Corpuscular Hemoglobin 30.7 pg (27-33); Mean Corpuscular Volume 91.2 fl (85-98); Mean Platelet Volume 9.7 fL (7.4-10.4); Monocytes # 0.6 10^3/uL (0.2-0.9); Monocytes % 5.5 %; Neutrophils # 9.07 10^3/uL (1.8-7.7); Neutrophils % 78.5 %; Nucleated Red Blood Cells % 0 %; Platelet Count 314 10^3/cmm (157-399); Red Blood Count 3.98 10^6/uL (3.85-5.65); Red Cell Distribution Width 12.1 % (12.1-15.1); White Blood Count 11.54 10^3/uL (3.29-11.43)
[2024-02-12 11:56] LABS: Lactic Sepsis W/Reflex 1.9 mmol/L (0.5-2.2)
[2024-02-12] MEDS: sodium chloride 0.9% 1,000 ML 999 ML IV (12:00)
[2024-02-12 12:08] LABS: Alanine Aminotransferase 11 U/L (0-33); Albumin Level 4.3 g/dL (3.5-5.2); Alkaline Phosphatase 65 U/L (35-105); Anion Gap 16.5 (5-19); Aspartate Amino Transferase 11 U/L (0-32); Blood Urea Nitrogen 12 mg/dL (6-20); Calcium 8.8 mg/dL (8.5-10.5); Carbon Dioxide 21 mmol/L (22-29); Chloride 103 mmol/L (98-107); Creatinine Clr Calc Pharmacy 149.1111; Globulin 2.7 g/dL (1.3-4.6); Glomerular Filtration Rate 103.7 mL/min (90-130); Glucose 147 mg/dL (65-115); Osmolality Calculated 286 mOsm/kg (285-295); Potassium 3.5 mmol/L (3.5-5.1); Sodium 137 mmol/L (136-145); Total Bilirubin 0.3 mg/dL (0.15-1.2)
[2024-02-12 12:56] LABS: Basophils % 0.1 %; Hematocrit 35.3 % (36-47); Lymphocytes # 0.6 10^3/uL (0.8-4.8); Lymphocytes % 5.8 %; Mean Corpuscular HGB Conc 32.9 g/dL (30-55); Mean Corpuscular Volume 94.4 fl (85-98); Mean Platelet Volume 9.5 fL (7.4-10.4); Monocytes # 0.5 10^3/uL (0.2-0.9); Monocytes % 4.3 %; Neutrophils # 9.58 10^3/uL (1.8-7.7); Neutrophils % 89.5 %; Nucleated Red Blood Cells % 0 %; Platelet Count 236 10^3/cmm (157-399); Red Blood Count 3.74 10^6/uL (3.85-5.65); Red Cell Distribution Width 12.1 % (12.1-15.1)
--- NOTE | 2024-02-12 13:28 | P.HP_ITS ---
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 Pt was seen in [place] with suspicious findings of possible Ectopic and vaginal bleeding. Bleeding was heavy 1 week ago and has decreased but crampy pain has become intense and extreme onset this am. Pt had positive test 01/27/24 with spotting and bleeding like menstrual flow. Positive Serum Quantitative test of 2016. TVS- indicates Left Adnexal Mass 5cm with fluid noted. No IUP noted. Abd/Pelvic Exam- Moderated pain with Right Lower Pelvic guarding and Rebound pain. Review of Pelvic Pain with Positive with TVUS findings indicative of Ectopic -Probable Ruptured. Options of treatment to resolve Ectopic reviewed, including Laparoscopy to evaluate and treat vs Laparotomy to treat with possible salpingostomy and salpingectomy. Risk of injury to pelvic organs and bladder reviewed. Decreased risk of difficulty with future fertility and risk of future ectopic pregnancies due to damaged tube. Pt and family understand, and agree to surgery. Review of Systems 2 General: Reports: 10 or more systems reviewed and unremarkable except in HPI and below Narrative: Constitutional symptoms: Negative except as documented in HPI. Skin symptoms: Negative except as documented in HPI. Eye symptoms: Negative except as documented in HPI. ENMT symptoms: Negative except as documented in HPI. Respiratory symptoms: Negative except as documented in HPI. Cardiovascular symptoms: Negative except as documented in HPI. Gastrointestinal symptoms: Negative except as documented in HPI. Genitourinary symptoms: Negative except as documented in HPI. Musculoskeletal symptoms: Negative except as documented in HPI. Neurologic symptoms: Negative except as documented in HPI. Psychiatric symptoms: Negative except as documented in HPI. Endocrine symptoms: Negative except as documented in HPI. 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 PFSH: Medical History Pre-eclampsia, severe, delivered Anemia affecting in third trimester Surgical History Hx of knee surgery (~2017) 2017---left knee surgery arthroscopically for a torn cartilage Family History Grandmother Heart disease Maternal and Paternal Grandfather Heart disease Paternal and Maternal Hypercholesteremia Maternal Hypertension Maternal Stroke Maternal Other Clotting disorder Dementia Denies family history of Colon cancer Ovarian cancer Diabetes Psychiatric illness Chronic kidney disease (CKD) Breast cancer Anesthesia complication Bleeding disorder Lung disease Cancer Uterine cancer Thyroid disease Social History Smoking and tobacco/nicotine status: current every day tobacco/nicotine user e- cigarettes E-Cigarette Details: vaporizer device Substance/Drug Use: never Marital status: Number of children: 1 Current occupational status: unemployed Special osmani needs: No Agree to transfusion: Yes Other Female Reproductive History: Date of Last Menstrual Period: 01/27/24 Menstrual flow: normal/abnormal: heavy History History History 2 1 Term 1 0 Miscarriages/Ectopic 0 Living Children 1 Other History: current test +01/27/2024 Vitals/I&O/Wt Last Vital Signs Temp 98.3 F 02/12/24 11:02 Pulse 98 02/12/24 11:30 Resp 16 02/12/24 11:30 BP 104/64 02/12/24 11:30 Pulse Ox 100 02/12/24 11:30 O2 Del Method Room Air 02/12/24 11:02 Weight last 48 hrs Weight 103.419 kg Physical Exam 2 Narrative: 23yo femael A/O x 3 NAD. Resp: COMMON NORMALS: normal respiratory effort and clear to auscultation bilaterally Cardio: COMMON NORMALS: regular rate and regular rhythm Back/Pelvis: OTHER: Abdomen- diffuse pain with Left sided pain with guarding. Right sided pain worse than left with Midepigastric pain. Extremity: COMMON NORMALS: no clubbing, cyanosis or edema Neuro: COMMON NORMALS: patient oriented x3, CN's II-XII intact bilaterally, moves all extremities and deep tendon reflexes 2+ bilaterally Data 02/12/24 12:52 02/12/24 11:17 Results Labs OB ([facility]): 2 Obstetrics US 08/26/21 Obstetrics US/Biophysical Profile Blood Type O Positive 02/12/24 Antibody Screen Negative 02/12/24 Hct 35.3 % (36-47) L 02/12/24 Hgb 11.60 g/dL (11.27-16.99) 02/12/24 Rho(D) Type Rh positive 02/12/24 Plt Count 236 10^3/cmm (157-399) 02/12/24 Hep Bs Antigen Non-reactive (Nonreactive) 03/26/21 Hep Bs Antibody 3.5 (11.5-1000) L 12/10/21 Hepatitis C Antibody Non-reactive (Nonreactive) 03/26/21 Rubella IgG Antibody 51.4 IU/mL (0.0-10.0) H 12/10/21 RPR Nonreactive (Nonreactive) 03/26/21 HIV 1&2 Ab & HIV 1 Ag Non-reactive (Non-Reactiv) 03/26/21 TSH 2.11 uIU/mL (0.27-4.20) 03/10/23 Free T4 1.36 ng/dL (0.82-1.77) 03/10/23 Gest Glucose Tolerance 75 mg/dL 07/29/21 Hemoglobin A1c 5.1 % (4.0-6.0) 03/10/23 Uric Acid 4.2 mg/dL (2.4-5.7) 10/02/21 VZV IgG Antibody <135.00 index L 12/10/21 Ser , Semi-Qnt 2016.00 mIU/mL 02/12/24 HCG, Qual Negative (Negative) 01/07/24 Urine Opiates Screen Negative ng/mL (Negative) 03/26/21 Ur Barbiturates Screen Negative ng/mL (Negative) 03/26/21 Ur Phencyclidine Scrn Negative ng/mL (Negative) 03/26/21 Ur Amphetamines Screen Negative ng/mL (Negative) 03/26/21 U Benzodiazepines Scrn Negative ng/mL (Negative) 03/26/21 Urine Cocaine Screen Negative ng/mL (Negative) 03/26/21 U Marijuana (THC) Screen Negative ng/mL (Negative) 03/26/21 Micro Urine Specimen 10/07/21 Attestations 2 Medical Necessity Statement*: Admit pt to hospital for Surgical treatment of Left Ectopic . Coding Level of Care Code Acute Code for Chg Fwd
--- NOTE | 2024-02-12 13:30 | PC.NURSE ---
Attempted to collect a urine sample, pt was unable to produce urine. Complaints of pain in the abdominal area. Drops of blood were left in the urine medical collector. Changed pt into gown. Pt connected back to VS machines, will continue to monitor.
[2024-02-12] MEDS: ondansetron 2 mg/ML SDV 2 mL 4 MG IVP (13:36)
[2024-02-12] MEDS: HYDROmorphone 1 mg/mL INJ 1 mL IVP (13:38)
[2024-02-12] MEDS: sodium chloride 0.9% 1,000 ML 30 ML IV (14:10)
--- NOTE | 2024-02-12 14:31 | P.ANESASSM_ITS ---
Pre-Anesthetic Assessment Height/Weight: Height 1.65 m Weight 103.419 kg Temp Pulse Resp BP Pulse Ox O2 Del Method 98.0 F 117 H 18 110/78 98 Room Air 02/12/24 14:00 02/12/24 14:05 02/12/24 14:00 02/12/24 14:05 02/12/24 14:05 02/12/24 14:00 Operation Date: 02/12/24 15:00 Proposed Procedures p Laparoscopic Ectopic (Not Applicable) - Carmen Cordova DO Familial anesthetic complications: None Was Beta Hunter taken within 24 hours: N/A Was Clonidine taken within 24 hours: N/A Last intake: Cinnamon Roll at 0900 Social Tobacco (Vapes) and No alcohol Exam alert, oriented x 3, clear to auscultation bilaterally and regular rate & rhythm Airway Mallampati: Class II Dentition: full Pulmonary Asthma Metabolic Morbid Obesity Anesthetic Plan ASA status: 2 Anesthesia: General Risk of > 500 ml blood loss (7ml/kg in children): No Medications/Allergies Home Medications Medication Instructions Recorded Confirmed Last Taken Type acetaminophen 500 mg tablet 1,000 mg PO Q6H PRN Pain 02/12/24 02/12/24 02/12/24 08:00 History Allergies Allergy/AdvReac Type Severity Reaction Status Date / Time No Known Allergies Allergy Verified 02/12/24 11:27 PFSH Anesthesia Medical History Pre-eclampsia, severe, delivered Anemia affecting in third trimester Surgical History Hx of knee surgery (~2016) 2017---left knee surgery arthroscopically for a torn cartilage Family History Grandmother Heart disease Maternal and Paternal Grandfather Heart disease Paternal and Maternal Hypercholesteremia Maternal Hypertension Maternal Stroke Maternal Other Clotting disorder Dementia Denies family history of Colon cancer Ovarian cancer Diabetes Psychiatric illness Chronic kidney disease (CKD) Breast cancer Anesthesia complication Bleeding disorder Lung disease Cancer Uterine cancer Thyroid disease Social History Smoking and tobacco/nicotine status: current every day tobacco/nicotine user e- cigarettes E-Cigarette Details: vaporizer device Substance/Drug Use: never Marital status: Number of children: 1 Current occupational status: unemployed Special osmani needs: No Agree to transfusion: Yes Data Anesthesia 02/12/24 12:52 02/12/24 11:17 Short CBC 02/12/24 02/12/24 Range/Units 11:17 12:52 WBC 11.54 H 10.70 (3.29-11.43) 10^3/uL Hgb 12.20 11.60 (11.27-16.99) g/dL Hct 36.3 35.3 L (36-47) % MCV 91.2 94.4 (85-98) fl Plt Count 314 236 (157-399) 10^3/cmm Neut % (Auto) 78.5 89.5 % Neut # (Auto) 9.07 H 9.58 H (1.8-7.7) 10^3/uL BMP 02/12/24 11:17 Sodium 137 Potassium 3.5 Chloride 103 Carbon Dioxide 21 L BUN 12 Creatinine 0.7 Glucose 147 H Calcium 8.8 Liver Function 02/12/24 Range/Units 11:17 Total Bilirubin 0.3 (0.15-1.2) mg/dL AST 11 (0-32) U/L ALT 11 (0-33) U/L Alkaline Phosphatase 65 (35-105) U/L Albumin 4.3 (3.5-5.2) g/dL Blood Bank 02/12/24 11:17 Blood Type O Positive Rho(D) Type Rh positive Antibody Screen Negative Cardiac Studies: 2 No Data to Display
[2024-02-12] MEDS: ceFAZolin 2,000 mg SDV 2000 MG IVP (15:40)
--- NOTE | 2024-02-12 16:19 | P.OP_ITS ---
Operative Report Date of procedure: February 12, 2024 Pre-op diagnosis: 1. Pelvic pain 2. Ruptured left ectopic Post-op diagnosis: Same Post-op findings: Left ectopic with moderate blood in the pelvis Procedure done: Laparotomy with left salpingectomy Specimens removed/disposition: Left tube with Surgeon: Carmen Cordova DO Anesthesia: General Estimated blood loss (mL): 300 Urine output: 100 mL Complications: None Findings: Ruptured left ectopic Condition: stable Brief History: 23-year-old female presented to [facility] with complaints of pelvic pain intense x 12 hours. Patient had been positive for tests in early bleeding x 1 week. Quantitative test 2019, transvaginal ultrasound and negative left adnexal mass with fluid in the pelvis. Procedure: Patient was taken to surgical suite after consent signed, risk and benefits reviewed. Patient was placed in the supine position and pelvis and abdomen prepped and draped in the standard fashion. General anesthesia was administered. A Pfannenstiel incision was made, the fascia incised and the incision lateralized. The rectus muscles were entered in the midline the peritoneum opened sharply with a moderate amount of dark blood clots encountered. The clots were removed the uterus exteriorized the left fallopian tube and noted ectopic region of the tube manipulated with a [place] instrument. A LigaSure was used to cauterize and excise the segment of tube. This area was then cauterized for good hemostasis. The left ovary appeared normal as did the uterus in its entirety. The right tube and ovary also appeared normal. The pelvis was cleared of clots with a lap sponge. The left segment of tube was again inspected and noted to be hemostatically intact and stable. The uterus and adnexa were returned to the pelvis for closure. The peritoneum was closed with 2-0 Vicryl the rectus muscles were reapproximated with 2-0 Vicryl the fascia was closed with 0 Vicryl in a running stitch, the subcu fat approximated with 2-0 Vicryl and the skin closed with 4-0 Vicryl in a subcuticular stitch. Good hemostasis was noted. A pressure dressing applied. Needle instrument sponge count is correct. Patient is awake and in stable and satisfactory condition. Transported to recovery.
[2024-02-12] MEDS: fentaNYL 50 mcg/mL INJ 2mL IVP (16:32)
--- NOTE | 2024-02-12 16:52 | ANE.PACU2 ---
Inpatient post-anesthesia follow up: Airway intact: Yes Vital signs: Temperature 98 F Pulse Rate 96 Respiratory Rate 17 Blood Pressure 135/90 Pulse Oximetry 100 Oxygen Delivery Me thod Nasal Cannula Oxygen Flow Rate 2 Fraction of Inspir ed Oxygen Hydration adequate: Yes Nausea and vomiting: No Pain level: 1 Mental status: Baseline
[2024-02-12] MEDS: ketorolac 30 mg/mL INJ IVP ×2 (17:21→23:12)
[2024-02-12] MEDS: HYDROcodone-acetaminophen 5-325 mg Tablet 1 TAB PO (17:21)
[2024-02-12] MEDS: HYDROcodone-acetaminophen 5-325 mg Tablet PO ×2 (18:21→22:39)
[2024-02-12 22:42] LABS: Basophils % 0.1 %; Hematocrit 31.7 % (36-47); Lymphocytes # 0.4 10^3/uL (0.8-4.8); Lymphocytes % 4.8 %; Mean Corpuscular HGB Conc 33.4 g/dL (30-55); Mean Corpuscular Hemoglobin 30.7 pg (27-33); Mean Corpuscular Volume 91.9 fl (85-98); Mean Platelet Volume 9.7 fL (7.4-10.4); Monocytes # 0.1 10^3/uL (0.2-0.9); Monocytes % 0.7 %; Neutrophils # 8.41 10^3/uL (1.8-7.7); Neutrophils % 94.2 %; Nucleated Red Blood Cells % 0 %; Platelet Count 255 10^3/cmm (157-399); Red Blood Count 3.45 10^6/uL (3.85-5.65); Red Cell Distribution Width 12.3 % (12.1-15.1); White Blood Count 8.93 10^3/uL (3.29-11.43)
[2024-02-13] VITALS: BP 109/77; PULSE 97; RESP 16; TEMP 37.1
[2024-02-13] MEDS: simethicone 80 mg Chew PO ×3 (00:12→23:08)
[2024-02-13] MEDS: HYDROcodone-acetaminophen 5-325 mg Tablet PO ×4 (02:30→23:06)
[2024-02-13 04:30] VITALS: BP 79/51; PULSE 82; RESP 16; TEMP 36.8
[2024-02-13] MEDS: ketorolac 30 mg/mL INJ IVP ×2 (04:39→11:02)
[2024-02-13 08:14] VITALS: BP 95/66; PULSE 78; RESP 17; TEMP 36.4; O2SAT 98
[2024-02-13 11:06] VITALS: BP 108/63; PULSE 81; RESP 16
--- NOTE | 2024-02-13 11:12 | PC.NURSE ---
pt c/o feeling flushed and slightly light headed. vitals obtained, wnl. pt encouraged to push PO intake. Ice water, popsicle, and peanut butter crackers given.
--- NOTE | 2024-02-13 11:49 | P.PN_ITS ---
[facility] Subjective 2 Subjective: Interval history: Postop day #1 s/p laparotomy with left salpingectomy due to ectopic ?ruptured. Patient doing well family at bedside. Tolerating regular diet, voiding and ambulating in room and hallway. Complains of getting flushed with dizziness with ambulation but denies feeling of passing out. Surgery course reviewed with findings of left ruptured ectopic. Reviewed risk of future ectopic pregnancies and need to seek early care. Vitals/I&O/Wt Last Vital Signs Temp 97.6 F 02/13/24 08:14 Pulse 81 02/13/24 11:06 Resp 16 02/13/24 11:06 BP 108/63 02/13/24 11:06 Pulse Ox 98 02/13/24 08:14 O2 Del Method Room Air 02/13/24 08:14 O2 Flow Rate 2 02/12/24 16:48 02/12/24 02/13/24 02/13/24 22:59 06:59 14:59 Intake Total 500 / 1500 Output Total 800 / 800 Balance -300 / 700 Weight last 48 hrs Weight 103.419 kg Weight 103.419 kg Physical Exam 2 Back/Pelvis: OTHER: Abdomen?soft, nondistended. Incision clean dry and intact. Extremity: COMMON NORMALS: no clubbing, cyanosis or edema and no calf tenderness Urinary Catheter Management: Bass: Cath Placed During This Visit: yes Reason for Continuing Indwelling Catheter: Perioperative Use in Selected Surgeries Urinary Catheter Date of Insertion: 02/12/24 Urinary Catheter Time of Insertion: 15:18 Data 02/12/24 22:26 02/12/24 11:17 A&P Assessment and plan (1) Status post laparotomy: (2) Hemoperitoneum due to rupture of left tubal ectopic : (3) Acute blood loss anemia: Plan A. Postop day #1, s/p laparotomy with left salpingectomy due to ruptured ectopic . P. Probable discharge tomorrow 02/14/2024 Postop expectations reviewed. Attestations 2 Medical Necessity Statement*: Patient was admitted after ER visit with severe pelvic/abdominal pain due to left ruptured ectopic . Postoperative evaluation and recovery. Coding Level of Care Code Acute Code for Chg Fwd Diagnoses Status post laparotomy Z98.890 Hemoperitoneum due to rupture of left tubal ectopic O00.102; K66.1 Acute blood loss anemia D62
[2024-02-13 16:15] VITALS: BP 125/73; PULSE 94; RESP 17; TEMP 36.8
[2024-02-13] MEDS: docusate sodium 100 mg Capsule PO (20:00)
[2024-02-13 22:46] VITALS: BP 109/72; PULSE 91; TEMP 36.8; O2SAT 97
[2024-02-14] MEDS: HYDROcodone-acetaminophen 5-325 mg Tablet PO (04:24)
[2024-02-14 04:27] VITALS: BP 100/65; PULSE 75; TEMP 36.6; O2SAT 98
[2024-02-14] MEDS: docusate sodium 100 mg Capsule PO (08:53)
[2024-02-14] MEDS: ibuprofen 800 mg tablet PO (08:53)
--- NOTE | 2024-02-14 10:00 | PM.OBGYDC ---
Discharge Providers [facility] Date of Admission: 02/12/24 16:10 Date of Discharge: 02/14/24 Attending Provider at Admission: Carmen Cordova DO Attending Provider at Discharge: Carmen Cordova DO Primary Care Provider: Guillaume Degroot MD Diagnoses at Discharge Discharge Diagnosis (1) Status post laparotomy: Details from hospital stay: 23-year-old female s/p laparotomy for left ectopic . Postop course uneventful. Patient is tolerating regular diet, voiding, has had several stools and ambulates well. Discharge and postop expectations reviewed in great extent with patient and family and all verbalizes understanding. Again patient is encouraged to seek early care after having a positive test. We reviewed the risk of future ectopic pregnancies. Status: Acute (2) Hemoperitoneum due to rupture of left tubal ectopic : Status: Acute (3) Acute blood loss anemia: Status: Acute Reason for Visit Reason for Visit: dizzy, weakness, nausea Hospital Course Hospital Course See above Physical Exam Resp: COMMON NORMALS: clear to auscultation bilaterally AUSCULTATION: clear to auscultation bilaterally Cardio: COMMON NORMALS: regular rate and regular rhythm RATE: regular rate RHYTHM: regular rhythm Back/Pelvis: OTHER: Abdomen?soft, nondistended Incision clean dry and intact. Extremity: COMMON NORMALS: no clubbing, cyanosis or edema Urinary Catheter Management: Bass: Cath Placed During This Visit: yes Reason for Continuing Indwelling Catheter: Perioperative Use in Selected Surgeries Urinary Catheter Date of Insertion: 02/12/24 Urinary Catheter Time of Insertion: 15:18 History History History 2 Term 1 0 Miscarriages/Ectopic 1 Living Children 1 Other History: current test +01/27/2024 Discharge Data Studies Completed and Pending Completed Studies During Hospitalization Category Date Time Status US OB <= 14 weeks fetus [id number] Stat Ultrasound 02/12/24 11:08 Completed Pending at discharge Category Date Time Status Pathology: Surgical [PTH] Routine Pth 02/12/24 15:57 Received Radiology Impressions Ultrasound 02/12/24 11:08 IMPRESSION: 1. No visible intrauterine gestational sac. Differential diagnosis includes early intrauterine , spontaneous , and ectopic . Recommend continued follow-up beta hCG and repeat ultrasound if necessary for confirmation. 2. Approximately 5 cm diameter ill-defined left adnexal mass. No internal blood flow by color Doppler interrogation. Probable hematoma which could be due to ruptured ectopic or ruptured hemorrhagic cyst. 3. Moderate left and trace right adnexal free fluid is suspicious for intraperitoneal blood. ADDENDUM: 02/12/24 1236 THIS REPORT CONTAINS FINDINGS THAT MAY BE CRITICAL TO PATIENT CARE. The findings and recommendations were verbally communicated by me via telephone conference with ОЛЕГ GUTIÉRREZ at 12:32 PM CDT on 02/12/2024. The findings were acknowledged and understood. Laboratory Results WBC 8.93 10^3/uL (3.29-11.43) 02/12/24 22: RBC 3.45 10^6/uL (3.85-5.65) L 02/12/24: Hgb 10.60 g/dL (11.27-16.99) L 02/12/24: Hct 31.7 % (36-47) L 02/12/24: MCV 91.9 fl (85-98) 02/12/24: MCH 30.7 pg (27-33) 02/12/24: MCHC 33.4 g/dL (30-55) 02/12/24: RDW 12.3 % (12.1-15.1) 02/12/24: Plt Count 255 10^3/cmm (157-399) 02/12/24: MPV 9.7 fL (7.4-10.4) 02/12/24 22: Neut % (Auto) 94.2 % 02/12/24: Lymph % (Auto) 4.8 % 02/12/24: Charlton % (Auto) 0.7 % 02/12/24: Eos % (Auto) 0.0 % 02/12/24: Baso % (Auto) 0.1 % 02/12/24: Neut # (Auto) 8.41 10^3/uL (1.8-7.7) H 02/12/24: Lymph # (Auto) 0.4 10^3/uL (0.8-4.8) L 02/12/24: Charlton # (Auto) 0.1 10^3/uL (0.2-0.9) L 04/13/24 22:26 Eos # (Auto) 0.0 10^3/uL (0.0-0.8) 02/12/24 22:26 Baso # (Auto) 0.0 10^3/uL (0.0-0.1) 02/12/24 22:26 Nucleated RBC % (auto) 0 % 02/12/24 22:26 Nucleated RBCs # 0.0 /100WBC 02/12/24 22:26 Sodium 137 mmol/L (136-145) 02/12/24 11:17 Potassium 3.5 mmol/L (3.5-5.1) 02/12/24 11:17 Chloride 103 mmol/L (98-107) 02/12/24 11:17 Carbon Dioxide 21 mmol/L (22-29) L 02/12/24 11:17 Anion Gap 16.5 (5-19) 02/12/24 11:17 BUN 12 mg/dL (6-20) 02/12/24 11:17 Creatinine 0.7 mg/dL (0.5-0.9) 02/12/24 11:17 GFR Calculation 103.7 mL/min (90-130) 02/12/24 11:17 Glucose 147 mg/dL (65-115) H 02/12/24 11:17 Calculated Osmolality 286 mOsm/kg (285-295) 02/12/24 11:17 Lactic Acid 1.9 mmol/L (0.5-2.2) 02/12/24 11:17 Calcium 8.8 mg/dL (8.5-10.5) 02/12/24 11:17 Total Bilirubin 0.3 mg/dL (0.15-1.2) 02/12/24 11:17 AST 11 U/L (0-32) 02/12/24 11:17 ALT 11 U/L (0-33) 02/12/24 11:17 Alkaline Phosphatase 65 U/L (35-105) 02/12/24 11:17 Total Protein 7.0 g/dL (6.6-8.7) 02/12/24 11:17 Albumin 4.3 g/dL (3.5-5.2) 02/12/24 11:17 Globulin 2.7 g/dL (1.3-4.6) 02/12/24 11:17 Ser , Semi-Qnt 2016.00 mIU/mL 02/12/24 11:17 Blood Type O Positive 02/12/24 11:17 Rho(D) Type Rh positive 02/12/24 11:17 Antibody Screen Negative 02/12/24 11:17 Procedures Performed Exploratory laparotomy with left salpingectomy Vitals Last Vital Signs Temp 97.9 F 02/14/24 04:27 Pulse 75 02/14/24 04:27 Resp 17 02/13/24 16:15 BP 100/65 02/14/24 04:27 Pulse Ox 98 02/14/24 04:27 O2 Del Method Room Air 02/14/24 04:27 O2 Flow Rate 2 02/12/24 16:48 Results Labs OB ([facility]): Obstetrics US 08/26/21 Obstetrics US/Biophysical Profile 09/09/21 Blood Type O Positive 02/12/24 Antibody Screen Negative 02/12/24 Hct 31.7 % (36-47) L 02/12/24 Hgb 10.60 g/dL (11.27-16.99) L 02/12/24 Rho(D) Type Rh positive 02/12/24 Plt Count 255 10^3/cmm (157-399) 02/12/24 Hep Bs Antigen Non-reactive (Nonreactive) 03/26/21 Hep Bs Antibody 3.5 (11.5-1000) L 12/10/21 Hepatitis C Antibody Non-reactive (Nonreactive) 03/26/21 Rubella IgG Antibody 51.4 IU/mL (0.0-10.0) H 12/10/21 RPR Nonreactive (Nonreactive) 03/26/21 HIV 1&2 Ab & HIV 1 Ag Non-reactive (Non-Reactiv) 03/26/21 TSH 2.11 uIU/mL (0.27-4.20) 03/10/23 Free T4 1.36 ng/dL (0.82-1.77) 03/10/23 Gest Glucose Tolerance 75 mg/dL 07/29/21 Hemoglobin A1c 5.1 % (4.0-6.0) 03/10/23 Uric Acid 4.2 mg/dL (2.4-5.7) 10/02/21 VZV IgG Antibody <135.00 index L 12/10/21 Ser , Semi-Qnt 2016.00 mIU/mL 02/12/24 HCG, Qual Negative (Negative) 01/07/24 Urine Opiates Screen Negative ng/mL (Negative) 03/26/21 Ur Barbiturates Screen Negative ng/mL (Negative) 03/26/21 Ur Phencyclidine Scrn Negative ng/mL (Negative) 03/26/21 Ur Amphetamines Screen Negative ng/mL (Negative) 03/26/21 U Benzodiazepines Scrn Negative ng/mL (Negative) 03/26/21 Urine Cocaine Screen Negative ng/mL (Negative) 03/26/21 U Marijuana (THC) Screen Negative ng/mL (Negative) 03/26/21 Micro Urine Specimen 10/07/21 Discharge Plan Discharge Patient Disposition: Home Condition: Serious Prescriptions: Continued Tylenol Ex Str Rapid Release 500 mg Tablet 1,000 mg PO Q6H PRN (Reason: Pain) Discharge Orders: Discharge Order (Routine); Ordered 02/14/24 Ordered By: Carmen Cordova Referrals: Guillaume Degroot MD [Primary Care Provider] - Discharge Diet: Regular Discharge Activity: Increase activity as tolerated and Limit activity as instructed Patient Instructions: Opioid Safety Activity Restrictions/Additional Instructions: No heavy lifting pushing or pulling x 4 weeks. No driving x 2 weeks. No unprotected sexual intercourse x 6 weeks. Assessment: S/p left ectopic ?ruptured Acute blood loss anemia?asymptomatic Plan of Treatment: Discharge patient to home for continued recovery. Follow-up at [facility] clinic in 2 weeks for postop evaluation. Discharge Attestations [employer] Time Spent in Discharge Care*: less than 30 min Coding Level of Care Code Acute Code for Chg Fwd Diagnoses Status post laparotomy Z98.890 Hemoperitoneum due to rupture of left tubal ectopic O00.102; K66.1 Acute blood loss anemia D62
[2024-02-14 11:29] VITALS: BP 107/74; PULSE 77; RESP 16; TEMP 36.6; O2SAT 98
[2024-02-14 11:30] VITALS: BP 107/74; PULSE 77; RESP 16; TEMP 36.6; O2SAT 98
== END 2024-02-14 11:41 | disposition home or self-care (01) | DRG 817 ==
LOC: ER 13:22 → OR 13:27 → OBGYN 16:15
PROVIDERS: Admitting Provider Obstetrics & Gynecology; Emergency Provider Emergency Medicine; PCP Family Medicine; Visit Provider Obstetrics & Gynecology
PROC: 10T20ZZ Resection of Products of Conception, Ectopic, Open Approach (ICD-10-PCS; CPT 49000; principal; 2024-02-12 15:00)
PROC: 10T20ZZ Resection of Products of Conception, Ectopic, Open Approach (ICD-10-PCS; CPT 58700; 2024-02-12 15:00)
DX: O00.102 Left tubal pregnancy without intrauterine pregnancy (principal); K66.1 Hemoperitoneum; D62 Acute posthemorrhagic anemia; Z72.0 Tobacco use
CPT/HCPCS: 36415; 51702; 76801; 80053; 83605; 84702; 85025; 86850; 86900; 88305; 96361; 96374; 96375; 99285; J0131; J0330; J0690; J1100; J1170; J1200; J1885; J2250; J2405; J2704; J3010; J3490; J7030

== ENCOUNTER 2024-02-28 20:21 | Emergency (ER) | payer OTHER, SELFPAY ==
[2024-02-28 20:29] VITALS: BP 111/77; PULSE 109; TEMP 36.6; O2SAT 98; BMI 36.8
--- NOTE | 2024-02-28 20:45 | XRR_ITS ---
PROCEDURE INFORMATION: Exam: XR Abdomen Exam date and time: 02/28/2024 9:27 PM Age: 23 years old Clinical indication: Abdominal pain; Acute; Prior surgery; Surgery date: 1-6 months; Surgery type: Ectopic ; Additional info: Abd pain/post-op ectopic TECHNIQUE: Imaging protocol: Radiologic exam of the abdomen. Views: Frontal supine view of the abdomen. 1 View. COMPARISON: US OB <= 14 weeks fetus [id number] 02/12/2024 11:29 AM FINDINGS: Gastrointestinal tract: Normal. No bowel dilation. Bones/joints: Unremarkable. XR/XR abdomen 1V* [id number] IMPRESSION: No acute findings.
--- NOTE | 2024-02-28 20:47 | ED_ITS ---
Documented by User: RIP Rivera 02/29/24 00:32 HPI - Abdominal Pain 2 General: Chief Complaint: Abdominal Pain Stated Complaint: Lower abd pain Time Seen by Provider: 02/28/24 20:35 Source: patient Mode of arrival: ambulatory Limitations: no limitations History of Present Illness: Patient is a 23-year-old female who presents to the emergency department complaining of lower abdominal pain beginning today. She is postop from ectopic surgery 2 weeks ago, and notes that she has not had issues up until today when she developed the pain. She notes the pain is to the bilateral lower quadrants, and while she believes it is just constipation, she presents to make sure is nothing serious. She does note that with her ectopic , she let the pain linger until she passed out so she is extra cautious. She notes her last normal bowel movement was 2 days ago, however it has been irregular since the surgery due to the hydrocodone she has been taking. She reports being nauseous, but denies fever or urinary symptoms. She denies any vaginal bleeding or discharge. She has no other symptoms to report at this time. She states that she has a follow-up appointment for postop evaluation on Wednesday. She denies any issues with the surgical scar. The pain does not radiate and she states it is currently a 6/10, and worsens when she stands up. She states that the pain feels like a dull/ache. MD elicited complaint: abdominal pain Pertinent past history: other (Recent surgery for ectopic ) Onset (ago): hour(s) Pain Consistency: constant Location: RLQ and LLQ Severity: moderate Quality: aching and dull Radiation: none Migration to: no migration Exacerbating factors: other (Standing) Relieving factors: nothing Associated Symptoms: Reports constipation and nausea; Denies bloating, chills, diarrhea, dysuria, fever(s), hematochezia and vomiting Treatments prior to arrival: prescription analgesics Review of Systems 2 General: Reports: 10 or more systems reviewed and unremarkable except in HPI and below Const: Denies: fever(s), chills, change in appetite, change in weight or diaphoresis ENMT: Denies: throat pain or hoarseness Card: Denies: chest pain, palpitations or lightheadedness Resp: Denies: dyspnea, productive cough or wheezing GI: Reports: abdominal pain, nausea and constipation; Denies: vomiting, diarrhea, bloating or hematochezia : Denies: flank pain, difficulty voiding, dysuria, urinary frequency or urinary urgency Musc: Denies: neck pain or back pain Skin/Breast: Denies: rash or new lesions Neuro: Denies: headache(s) or dizziness PFSH ED 2 PFSH: Medical History Pre-eclampsia, severe, delivered Anemia affecting in third trimester Surgical History Hx of knee surgery (~2017) 2017---left knee surgery arthroscopically for a torn cartilage Family History Grandmother Heart disease Maternal and Paternal Grandfather Heart disease Paternal and Maternal Hypercholesteremia Maternal Hypertension Maternal Stroke Maternal Other Clotting disorder Dementia Denies family history of Colon cancer Ovarian cancer Diabetes Psychiatric illness Chronic kidney disease (CKD) Breast cancer Anesthesia complication Bleeding disorder Lung disease Cancer Uterine cancer Thyroid disease Social History Smoking and tobacco/nicotine status: current every day tobacco/nicotine user e- cigarettes E-Cigarette Details: vaporizer device Substance/Drug Use: never Marital status: Number of children: 1 Current occupational status: unemployed Special osmani needs: No Agree to transfusion: Yes Physical Exam 2 Const: COMMON NORMALS: no acute distress, average body habitus, patient oriented x3, no limitations, healthy appearing, alert and well nourished G ENERAL APPEARANCE: cooperative and comfortable ORIENTATION/CONSCIOUSNESS: Yes awake HENMT: COMMON NORMALS: normocephalic, atraumatic, hearing grossly normal bilaterally, external ears normal, Normal external nose present, Normal nasal mucous membranes and turbinates present and moist oral mucous membranes HEAD & SCALP: normocephalic and atraumatic NOSE: Normal external nose present and Normal nasal mucous membranes and turbinates present EXTERNAL EAR: Yes external ears normal Eye: COMMON NORMALS: Equal, round and reactive pupils present, EOMs intact bilaterally, conjunctivae normal and normal visual lemus by confrontation C ONJUNCTIVA: Yes conjunctivae normal PUPIL: Yes Equal, round and reactive pupils present Neck/C-Spine: COMMON NORMALS: full ROM, supple, no meningeal signs and no JVD Resp: COMMON NORMALS: normal respiratory effort, No retractions, No use of accessory muscles and clear to auscultation bilaterally AUSCULTATION: clear to auscultation bilaterally, no crackles, no rales, no rhonchi and no wheezes Cardio: COMMON NORMALS: no JVD, regular rate, regular rhythm, S1 normal heart sound present, S2 normal heart sound present, No gallops present (Cardio), No clicks present (Cardio), No murmurs present (Cardio), No rub (Cardio) and Peripheral pulses 2+ throughout RATE: regular rate RHYTHM: regular rhythm HEART SOUNDS: S1 normal heart sound present and S2 normal heart sound present PERIPHERAL PULSES: Peripheral pulses 2+ throughout GI: COMMON NORMALS: Normal to inspection, nondistended, normoactive bowel sounds present, Soft to palpation, No hepatosplenomegaly present and no masses AUSCULTATION: Yes normoactive bowel sounds PALPATION: Yes Soft to palpation, Yes Tenderness to palpation present (GI) (Mild reproducible tenderness to palpation) Details: LLQ and RLQ, No Guarding due to palpation present (GI), No Rigid due to palpation and Yes No hepatosplenomegaly present RECTAL EXAM: d eferred OTHER: Well-healing postoperative scar : COMMON NORMALS: Yes no CVA tenderness BLADDER/KIDNEY EXAM: Yes no CVA tenderness Back/Pelvis: COMMON NORMALS: no CVA tenderness Extremity: COMMON NORMALS: normal to inspection and full ROM Neuro: COMMON NORMALS: patient oriented x3, moves all extremities, no focal motor deficits and no sensory deficits noted SENSORIUM/ORIENTATION: Yes alert MENINGEAL SIGNS: Yes no meningeal signs Psych: COMMON NORMALS: mental status grossly normal, cooperative and speech normal SPEECH: Yes normal speech Skin: COMMON NORMALS: no rashes or lesions noted GENERAL SKIN EXAM: no rashes or lesions noted Course 2 Vital Signs: Vital signs: Vital Signs Temperature 97.9 F 02/28/24 20:29 Pulse Rate 95 02/28/24 21:58 Blood Pressure 111/77 02/28/24 20:29 Pulse Oximetry 96 02/28/24 21:58 Oxygen Delivery Me thod Room Air 02/28/24 21:58 MDM - Abdominal Pain Medical Decision Making Patient seen for 1 day of bilateral lower quadrant abdominal pain. She is 2 weeks status post surgery to remove ectopic . She notes that the pain is very mild and she is here for precautionary reasons as she is anxious due to her recent history. Basic lab work unremarkable. Initial abdominal x-ray did not reveal any acute findings. CT abdomen then ordered for further evaluation, this was also negative. Her was negative. I informed her that she has no emergent findings and can follow-up with her OB on an outpatient basis. She agrees with this plan and reasons to return are thoroughly discussed. Will send patient home with Ivett to take as needed as she states she is still a little nauseous. Lab Data 02/28/24 20:42 02/28/24 20:42 Labs/Radiology: Radiology Impressions Abdomen X-Ray 02/28/24 20:45 IMPRESSION: No acute findings. Abdomen/Pelvis CT 02/28/24 22:03 IMPRESSION: No acute intra-abdominal process. Laboratory Results WBC 6.95 10^3/uL (3.29-11.43) 02/28/24 20:42 RBC 4.07 10^6/uL (3.85-5.65) 02/28/24 20:42 Hgb 12.10 g/dL (11.27-16.99) 02/28/24 20:42 Hct 37.1 % (36-47) 02/28/24 20:42 MCV 91.2 fl (85-98) 02/28/24 20:42 MCH 29.7 pg (27-33) 02/28/24 20:42 MCHC 32.6 g/dL (30-55) 02/28/24 20:42 RDW 12.2 % (12.1-15.1) 02/28/24 20:42 Plt Count 328 10^3/cmm (157-399) 02/28/24 20:42 MPV 9.1 fL (7.4-10.4) 02/28/24 20:42 Neut % (Auto) 70.1 % 02/28/24 20:42 Lymph % (Auto) 21.6 % 02/28/24 20:42 [place] % (Auto) 6.2 % 02/28/24 20:42 Eos % (Auto) 1.4 % 02/28/24 20:42 Baso % (Auto) 0.4 % 02/28/24 20:42 Neut # (Auto) 4.87 10^3/uL (1.8-7.7) 02/28/24 20:42 Lymph # (Auto) 1.5 10^3/uL (0.8-4.8) 02/28/24 20:42 [place] # (Auto) 0.4 10^3/uL (0.2-0.9) 02/28/24 20:42 Eos # (Auto) 0.1 10^3/uL (0.0-0.8) 02/28/24 20:42 Baso # (Auto) 0.0 10^3/uL (0.0-0.1) 02/28/24 20:42 Nucleated RBC % (auto) 0 % 02/28/24 20:42 Nucleated RBCs # 0.0 /100WBC 02/28/24 20:42 Sodium 138 mmol/L (136-145) 02/28/24 20:42 Potassium 3.5 mmol/L (3.5-5.1) 02/28/24 20:42 Chloride 102 mmol/L (98-107) 02/28/24 20:42 Carbon Dioxide 26 mmol/L (22-29) 02/28/24 20:42 Anion Gap 13.5 (5-19) 02/28/24 20:42 BUN 10 mg/dL (6-20) 02/28/24 20:42 Creatinine 0.6 mg/dL (0.5-0.9) 02/28/24 20:42 GFR Calculation 123.9 mL/min (90-130) 02/28/24 20:42 Glucose 85 mg/dL (65-115) 02/28/24 20:42 Calculated Osmolality 284 mOsm/kg (285-295) L 02/28/24 20:42 Calcium 9.1 mg/dL (8.5-10.5) 02/28/24 20:42 Total Bilirubin 0.3 mg/dL (0.15-1.2) 02/28/24 20:42 AST 10 U/L (0-32) 02/28/24 20:42 ALT 12 U/L (0-33) 02/28/24 20:42 Alkaline Phosphatase 77 U/L (35-105) 02/28/24 20:42 C-Reactive Protein 3.0 mg/L (0.0-4.9) 02/28/24 20:42 Total Protein 7.6 g/dL (6.6-8.7) 02/28/24 20:42 Albumin 4.4 g/dL (3.5-5.2) 02/28/24 20:42 Globulin 3.2 g/dL (1.3-4.6) 02/28/24 20:42 Lipase 43 U/L (13-60) 02/28/24 20:42 Procalcitonin 0.04 ng/mL (0-0.5) 02/28/24 20:42 HCG, Qual Negative (Negative) 02/28/24 20:42 Urine Color Yellow (Yellow) 02/28/24 20:45 Urine Appearance Hazy (CLEAR) A 02/28/24 20:45 Urine pH 6.5 (5-7) 02/28/24 20:45 Ur Specific [place] 1.020 (1.005-1.030) 02/28/24 20:45 Urine Protein Neg (Negative) 02/28/24 20:45 Urine Glucose (UA) Norm (Normal) 02/28/24 20:45 Urine Ketones 1+ (Negative) H 02/28/24 20:45 Urine Blood Neg (Negative) 02/28/24 20:45 Urine Nitrate Negative (Negative) 02/28/24 20:45 Urine Bilirubin Neg (Negative) 02/28/24 20:45 Urine Urobilinogen 4 mg/dL (Negative) H 02/28/24 20:45 Ur Leukocyte Esterase Negative (Negative) 02/28/24 20:45 Urine RBC None /hpf (0-2) 02/28/24 20:45 Urine WBC None /hpf (0-5) 02/28/24 20:45 Ur Squamous Epith Cells 10-15 /hpf (0-5) H 02/28/24 20:45 Amorphous Sediment 3+ /hpf 02/28/24 20:45 Urine Bacteria Trace /hpf (NONE) 02/28/24 20:45 All radiology interpretation(s) finalized by discharge Discharge Plan Discharge Patient Disposition: Home Clinical Impression: Postoperative abdominal pain Condition: Stable Prescriptions: New ondansetron 4 mg tablet,disintegrating 4 mg PO TID PRN (Reason: nausea and vomiting) Qty: 60 0RF No Action acetaminophen 500 mg Tablet 1,000 mg PO Q6H PRN (Reason: Pain) Discharge Orders: Discharge ED (Routine); Ordered 02/28/24 Ordered By: Ryan Palm Referrals: Guillaume Degroot MD [Primary Care Provider] - Discharge Diet: Usual diet Discharge Activity: Increase activity as tolerated Patient Instructions: Abdominal Pain (ED) Activity Restrictions/Additional Instructions: Zofran as needed for nausea. Follow-up with OB as discussed. Please monitor for any new or worsening symptoms you may have and return for reevaluation. Coding Level of Care Code ED Pitch Filler for Chg Fwd Documented by User: Emiliano Chauhan DO 03/02/24 06:21 HPI - Abdominal Pain 2 General: Chief Complaint: Abdominal Pain Stated Complaint: Lower abd pain Time Seen by Provider: 02/28/24 20:35 PFSH ED 2 PFSH: Medical History Pre-eclampsia, severe, delivered Anemia affecting in third trimester Surgical History Hx of knee surgery (~2017) 2017---left knee surgery arthroscopically for a torn cartilage Family History Grandmother Heart disease Maternal and Paternal Grandfather Heart disease Paternal and Maternal Hypercholesteremia Maternal Hypertension Maternal Stroke Maternal Other Clotting disorder Dementia Denies family history of Colon cancer Ovarian cancer Diabetes Psychiatric illness Chronic kidney disease (CKD) Breast cancer Anesthesia complication Bleeding disorder Lung disease Cancer Uterine cancer Thyroid disease Social History Smoking and tobacco/nicotine status: current every day tobacco/nicotine user e- cigarettes E-Cigarette Details: vaporizer device Substance/Drug Use: never Marital status: Number of children: 1 Current occupational status: unemployed Special osmani needs: No Agree to transfusion: Yes Course 2 Vital Signs: Vital signs: Vital Signs Temperature 97.9 F 02/28/24 20:29 Pulse Rate 95 02/28/24 21:58 Blood Pressure 111/77 02/28/24 20:29 Pulse Oximetry 96 02/28/24 21:58 Oxygen Delivery Me thod Room Air 02/28/24 21:58 MDM - Abdominal Pain Medical Decision Making Patient seen for 1 day of bilateral lower quadrant abdominal pain. She is 2 weeks status post surgery to remove ectopic . She notes that the pain is very mild and she is here for precautionary reasons as she is anxious due to her recent history. Basic lab work unremarkable. Initial abdominal x-ray did not reveal any acute findings. CT abdomen then ordered for further evaluation, this was also negative. Her was negative. I informed her that she has no emergent findings and can follow-up with her OB on an outpatient basis. She agrees with this plan and reasons to return are thoroughly discussed. Will send patient home with Zofran to take as needed as she states she is still a little nauseous. Chart reviewed Lab Data 02/28/24 20:42 02/28/24 20:42 Labs/Radiology: Radiology Impressions Abdomen X-Ray 02/28/24 20:45 IMPRESSION: No acute findings. Abdomen/Pelvis CT 02/28/24 22:03 IMPRESSION: No acute intra-abdominal process. Laboratory Results WBC 6.95 10^3/uL (3.29-11.43) 02/28/24 20:42 RBC 4.07 10^6/uL (3.85-5.65) 02/28/24 20:42 Hgb 12.10 g/dL (11.27-16.99) 02/28/24 20:42 Hct 37.1 % (36-47) 02/28/24 20:42 MCV 91.2 fl (85-98) 02/28/24 20:42 MCH 29.7 pg (27-33) 02/28/24 20:42 MCHC 32.6 g/dL (30-55) 02/28/24 20:42 RDW 12.2 % (12.1-15.1) 02/28/24 20:42 Plt Count 328 10^3/cmm (157-399) 02/28/24 20:42 MPV 9.1 fL (7.4-10.4) 02/28/24 20:42 Neut % (Auto) 70.1 % 02/28/24 20:42 Lymph % (Auto) 21.6 % 02/28/24 20:42 [place] % (Auto) 6.2 % 02/28/24 20:42 Eos % (Auto) 1.4 % 02/28/24 20:42 Baso % (Auto) 0.4 % 02/28/24 20:42 Neut # (Auto) 4.87 10^3/uL (1.8-7.7) 02/28/24 20:42 Lymph # (Auto) 1.5 10^3/uL (0.8-4.8) 02/28/24 20:42 [place] # (Auto) 0.4 10^3/uL (0.2-0.9) 02/28/24 20:42 Eos # (Auto) 0.1 10^3/uL (0.0-0.8) 02/28/24 20:42 Baso # (Auto) 0.0 10^3/uL (0.0-0.1) 02/28/24 20:42 Nucleated RBC % (auto) 0 % 02/28/24 20:42 Nucleated RBCs # 0.0 /100WBC 02/28/24 20:42 Sodium 138 mmol/L (136-145) 02/28/24 20:42 Potassium 3.5 mmol/L (3.5-5.1) 02/28/24 20:42 Chloride 102 mmol/L (98-107) 02/28/24 20:42 Carbon Dioxide 26 mmol/L (22-29) 02/28/24 20:42 Anion Gap 13.5 (5-19) 02/28/24 20:42 BUN 10 mg/dL (6-20) 02/28/24 20:42 Creatinine 0.6 mg/dL (0.5-0.9) 02/28/24 20:42 GFR Calculation 123.9 mL/min (90-130) 02/28/24 20:42 Glucose 85 mg/dL (65-115) 02/28/24 20:42 Calculated Osmolality 284 mOsm/kg (285-295) L 02/28/24 20:42 Calcium 9.1 mg/dL (8.5-10.5) 02/28/24 20:42 Total Bilirubin 0.3 mg/dL (0.15-1.2) 02/28/24 20:42 AST 10 U/L (0-32) 02/28/24 20:42 ALT 12 U/L (0-33) 02/28/24 20:42 Alkaline Phosphatase 77 U/L (35-105) 02/28/24 20:42 C-Reactive Protein 3.0 mg/L (0.0-4.9) 02/28/24 20:42 Total Protein 7.6 g/dL (6.6-8.7) 02/28/24 20:42 Albumin 4.4 g/dL (3.5-5.2) 02/28/24 20:42 Globulin 3.2 g/dL (1.3-4.6) 02/28/24 20: Lipase 43 U/L (13-60) 02/28/24 20:42 Procalcitonin 0.04 ng/mL (0-0.5) 02/28/24 20:42 HCG, Qual Negative (Negative) 02/28/24 20:42 Urine Color Yellow (Yellow) 02/28/24 20:45 Urine Appearance Hazy (CLEAR) A 02/28/24 20:45 Urine pH 6.5 (5-7) 02/28/24 20:45 Ur Specific [place] 1.020 (1.005-1.030) 02/28/24 20:45 Urine Protein Neg (Negative) 02/28/24 20:45 Urine Glucose (UA) Norm (Normal) 02/28/24 20:45 Urine Ketones 1+ (Negative) H 02/28/24 20:45 Urine Blood Neg (Negative) 02/28/24 20:45 Urine Nitrate Negative (Negative) 02/28/24 20:45 Urine Bilirubin Neg (Negative) 02/28/24 20:45 Urine Urobilinogen 4 mg/dL (Negative) H 02/28/24 20:45 Ur Leukocyte Esterase Negative (Negative) 02/28/24 20:45 Urine RBC None /hpf (0-2) 02/28/24 20:45 Urine WBC None /hpf (0-5) 02/28/24 20:45 Ur Squamous Epith Cells 10-15 /hpf (0-5) H 02/28/24 20:45 Amorphous Sediment 3+ /hpf 02/28/24 20:45 Urine Bacteria Trace /hpf (NONE) 02/28/24 20:45 Discharge Plan Discharge Patient Disposition: Home Clinical Impression: Postoperative abdominal pain Condition: Stable Prescriptions: New ondansetron 4 mg tablet,disintegrating 4 mg PO TID PRN (Reason: nausea and vomiting) Qty: 60 0RF No Action acetaminophen 500 mg Tablet 1,000 mg PO Q6H PRN (Reason: Pain) Discharge Orders: Discharge ED (Routine); Ordered 02/28/24 Ordered By: Ryan Palm Referrals: Guillaume Degroot MD [Primary Care Provider] - Discharge Diet: Usual diet Discharge Activity: Increase activity as tolerated Patient Instructions: Abdominal Pain (ED) Activity Restrictions/Additional Instructions: Zofran as needed for nausea. Follow-up with OB as discussed. Please monitor for any new or worsening symptoms you may have and return for reevaluation. Coding Level of Care Code ED Pitch Filler for Clement Anthony
[2024-02-28 20:53] LABS: Basophils % 0.4 %; Eosinophils # 0.1 10^3/uL (0.0-0.8); Eosinophils % 1.4 %; Hematocrit 37.1 % (36-47); Lymphocytes # 1.5 10^3/uL (0.8-4.8); Lymphocytes % 21.6 %; Mean Corpuscular HGB Conc 32.6 g/dL (30-55); Mean Corpuscular Hemoglobin 29.7 pg (27-33); Mean Corpuscular Volume 91.2 fl (85-98); Mean Platelet Volume 9.1 fL (7.4-10.4); Monocytes # 0.4 10^3/uL (0.2-0.9); Monocytes % 6.2 %; Neutrophils # 4.87 10^3/uL (1.8-7.7); Neutrophils % 70.1 %; Nucleated Red Blood Cells % 0 %; Platelet Count 328 10^3/cmm (157-399); Red Blood Count 4.07 10^6/uL (3.85-5.65); Red Cell Distribution Width 12.2 % (12.1-15.1); White Blood Count 6.95 10^3/uL (3.29-11.43)
[2024-02-28] MEDS: ondansetron 2 mg/ML SDV 2 mL 4 MG IVP (21:04)
[2024-02-28] MEDS: sodium chloride 0.9% 1,000 ML 999 ML IV (21:04)
[2024-02-28] MEDS: ketorolac 60 mg/2 mL INJ 30 MG IVP (21:04)
[2024-02-28 21:08] LABS: Add Urine Microscopic? YES; Bilirubin Urine Neg (Negative); Blood Urine Neg (Negative); Glucose Urine UA Norm (Normal); Ketones Urine 1+ (Negative); Leukocyte Esterase Urine Negative (Negative); Nitrate Urine Negative (Negative); Protein Urine Neg (Negative); Urine Appearance Hazy (CLEAR); Urine Color Yellow (Yellow); Urobilinogen Urine 4 mg/dL (Negative); pH Urine 6.5 (5-7)
[2024-02-28 21:11] LABS: Add Urine Culture? No; Amorphous Sediment Urine 3+ /hpf; Bacteria Urine TRACE /hpf
[2024-02-28 21:13] LABS: Alanine Aminotransferase 12 U/L (0-33); Albumin Level 4.4 g/dL (3.5-5.2); Alkaline Phosphatase 77 U/L (35-105); Anion Gap 13.5 (5-19); Aspartate Amino Transferase 10 U/L (0-32); Blood Urea Nitrogen 10 mg/dL (6-20); Calcium 9.1 mg/dL (8.5-10.5); Carbon Dioxide 26 mmol/L (22-29); Chloride 102 mmol/L (98-107); Creatinine Clr Calc Pharmacy 165.3559; Globulin 3.2 g/dL (1.3-4.6); Glomerular Filtration Rate 123.9 mL/min (90-130); Glucose 85 mg/dL (65-115); Lipase 43 U/L (13-60); Osmolality Calculated 284 mOsm/kg (285-295); Potassium 3.5 mmol/L (3.5-5.1); Sodium 138 mmol/L (136-145); Total Bilirubin 0.3 mg/dL (0.15-1.2); Total Protein 7.6 g/dL (6.6-8.7)
[2024-02-28 21:20] LABS: Procalcitonin 0.04 ng/mL (0-0.5)
[2024-02-28 21:22] LABS: HCG, Serum Qual Negative (Negative)
[2024-02-28 21:58] VITALS: PULSE 95; O2SAT 96
--- NOTE | 2024-02-28 22:03 | CTR_ITS ---
PROCEDURE INFORMATION: Exam: CT Abdomen And Pelvis With Contrast Exam date and time: 02/28/2024 10:39 PM Age: 23 years old Clinical indication: Abdominal pain; Prior surgery; Surgery date: 1-6 months; Surgery type: Ovarian tube; Additional info: Abd pain/post op TECHNIQUE: Imaging protocol: Computed tomography of the abdomen and pelvis with contrast. Radiation optimization: All CT scans at this facility use at least one of these dose optimization techniques: automated exposure control; mA and/or kV adjustment per patient size (includes targeted exams where dose is matched to clinical indication); or iterative reconstruction. Contrast material: OMNI 350; Contrast volume: 100 ml; Contrast route: INTRAVENOUS (IV); COMPARISON: CR (ABDOMEN, ) 02/28/2024 9:27 PM RADIATION DOSE METRICS: Total DLP (mGy-cm): 958.4 FINDINGS: Liver: There is a 7.6 x 7.1 cm hypodense liver lesion in segment 8 of the liver with an average CT density of 9.7 Hounsfield units, likely representing a cyst. There is a 7 mm hypodense liver lesion in segment 6 of the liver, too small to characterize. Gallbladder and bile ducts: Normal. No calcified stones. No ductal dilation. Pancreas: Normal. No ductal dilation. Spleen: Normal. No splenomegaly. Adrenal glands: Normal. No mass. Kidneys and ureters: Normal. No hydronephrosis. Stomach and bowel: Unremarkable. No obstruction. No mucosal thickening. Appendix: No evidence of appendicitis. Intraperitoneal space: Unremarkable. No free air. No significant fluid collection. Vasculature: Unremarkable. No abdominal aortic aneurysm. Lymph nodes: Unremarkable. No enlarged lymph nodes. Urinary bladder: Unremarkable as visualized. Reproductive: Unremarkable as visualized. Bones/joints: Left femoral head bone island. Soft tissues: Fat containing umbilical hernia. CT/CT abdomen pelvis w con* [id number] IMPRESSION: No acute intra-abdominal process.
[2024-02-28] MEDS: iohexol 350 mg/mL 500 mL Btl (per mL) IV (22:42)
== END 2024-02-28 23:30 | disposition home or self-care (01) ==
PROVIDERS: Emergency Provider Physician Assistant; PCP Family Medicine
DX: G89.18 Other acute postprocedural pain (principal); R10.30 Lower abdominal pain, unspecified; F17.290 Nicotine dependence, other tobacco product, uncomplicated
CPT/HCPCS: 74018; 74177; 80053; 81001; 83690; 84145; 84703; 85025; 86140; 96361; 96374; 96375; 99285; J1885; J2405; J7030; Q9967

== ENCOUNTER → 2024-08-03 15:08 | Outpatient (BNVA) | payer OTHER, SELFPAY | PROVIDERS: PCP Family Medicine; Visit Provider Family Medicine | DX: R39.9 Unspecified symptoms and signs involving the genitourinary system (principal) | CPT/HCPCS: 81000 ==